=== PATIENT | female | born 1930 | race Caucasian/White ===

== ENCOUNTER → 2016-04-16 | Outpatient (CLI) | payer OTHER, MEDICAID ==
--- NOTE | 2016-04-16 18:34 | DX ---
PA and lateral chest. April 16, 2016. Clinical History: Hemoptysis Comparison Study: January 07, 2016, December 28, 2015. Findings: From prior study, there has been near complete interval resolution of bilateral lower lobe infiltrates, right greater than left, with mild residual atelectasis or parenchymal scarring. Heart s ize is normal. Scattered small calcified nodules are present in the left midlung. No pleural effusion . No masses identified.. Impression: Interval near complete resolution of bilateral lower lobe infiltrates, with mild residual scarring or atelectasis. If hemoptysis persists, CT examination of the chest would be of benefit..
== END ==
LOC: FIMAGING 12:43
PROVIDERS: ATTEND Family Medicine
DX: R04.2 Hemoptysis (principal)

== ENCOUNTER 2016-05-26 09:40 | Inpatient (IN) | payer MEDICAID, OTHER ==
--- NOTE | 2016-05-26 10:23 | EDPHY ---
H & P Stated Complaint: fever 101.5 at home/?aspiration pneumonia in past Time Seen by Provider: 05/26/16 10:23 - Personal History Current Tetanus/Diphtheria Vaccine: Yes Tetanus Vaccine Date: ? - Medical/Surgical History Hx Asthma: No Hx Chronic Respiratory Disease: Yes Hx Diabetes: Yes Hx Cardiac Disease: No Hx Renal Disease: No Hx Cirrhosis: No Hx Alcoholism: No Hx HIV/AIDS: No Hx Splenectomy or Spleen Trauma: No Other PMH: TIA, CVA, TUBE FEEDINGS SWALLOW ISSUES, GLOBUAL TUMOR L inner EAR. IDDM, HOME 02, ASPIRATION PNEUMONIA - Social History Smoking Status: Never smoked Constitutional: Initial Vital Signs Temperature (C) 37.4 C 05/26/16 09:47 Heart Rate 72 05/26/16 09:47 Respiratory Rate 26 H 05/26/16 09:47 Blood Pressure 125/63 H 05/26/16 09:47 O2 Sat (%) 91 L 05/26/16 09:47 O2 Delivery Mode Nasal Cannula O2 (L/minute) 2 Allergies/Adverse Reactions: No Known Allergies Allergy (Verified 05/26/16 09:46) Home Medications: Medication Instructions Recorded FLUoxetine [Prozac 20 MG (*)] 60 mg TUBE DAILY 11/30/11 Insulin Glargine,Hum.rec.anlog 12 unit SQ DAILY@1900 11/30/11 [Lantus] amLODIPine BESYLATE [Norvasc 5 mg 5 mg TUBE BID 11/30/11 (*)] busPIRone [Buspar (*)] 5 mg TUBE BID 11/30/11 metFORMIN HCL [Glucophage 500 mg 500 mg TUBE DAILY 11/30/11 (*)] Albuterol Sulfate [Albuterol 1 - 2 puffs IH Q4H PRN 04/27/14 Inhaler Hfa] Albuterol [Proventil Neb] 3 ml IH TID 04/27/14 Fluticasone Hfa 44 Mcg [Flovent 44 2 puffs IH HS 04/27/14 MCG Hfa MDI (*)] Pantoprazole Sodium [Protonix 40mg 40 mg TUBE BIDMEAL 04/27/14 (*)] Calcium Carbonate [Tums 500MG (*)] 500 mg TUBE HS 07/03/15 INSULIN REGULAR, HUMAN [Novolin R] 2 - 6 unit SQ DAILY PRN 07/03/15 Oxybutynin Chloride [Ditropan] 5 mg TUBE BID 07/03/15 Polyethylene Glycol 3350 [Miralax 17 gm TUBE DAILY 07/03/15 17 gm (*)] Hydrocodone/Acetaminophen [Berry 0.5 each TUBE HS 09/29/15 5/325 (*)] Losartan Potassium [Cozaar 50 mg 50 mg PO BID 09/29/15 (*)] Aspirin [Aspirin 81mg (*)] 81 mg TUBE DAILY #0 tab.chew 10/01/15 Metoclopramide [Reglan 5 mg (*)] 5 mg PO DAILY PRN 12/27/15 Nystatin [Mycostatin Oral Liquid 5 ml PO BID 12/27/15 (*)] guaiFENesin/DEXTROMETHORPHAN 10 ml PO Q4HRS PRN #0 ml 12/31/15 [Robitussin Dm Oral Liquid (*)] Acetaminophen [Tylenol 325mg (*)] 650 mg PO Q4 PRN #0 tab 01/10/16 Ipratropium/Albuterol [Duoneb (*)] 3 ml IH Q6 #0 deyvial 01/10/16 levOFLOXACIN [levAQUIN (*)] 750 mg PO Q2D #0 tab 01/10/16 Medical Decision Making ED Course/Re-evaluation: CHIEF COMPLAINT: Fever HISTORY OF PRESENT ILLNESS: The patient is an 86 y/o female arriving with her son complaining of a fever and green sputum. She has several chronic medical conditions including frequent pneumonia and an unresectable neck tumor and requires 24/7 home care. She was admitted 4 months ago for failure to thrive and pneumonia. Her son brought her to the ED today because she had a reported fever of 99F, green sputum, and was shaking. He reports these symptoms are similar to previous UTIs as well as pneumonia. She denies abdominal pain. History primarily obtained from son. REVIEW OF SYSTEMS: A 10 point review of systems was performed and is negative with the exception of the elements mentioned in the history of present illness. PHYSICAL EXAM: HR, BP, O2 Sat, RR. Temp noted General Appearance: Alert, well hydrated, appropriate, and chronically-ill appearing. Head: Atraumatic without scalp tenderness or obvious injury Eyes: Pupils equal, round, reactive to light and accommodation, EOMI, no trauma , no injection. Ears: Clear bilaterally, no perforation, normal landmarks, hearing assistance device in place. Nose: Atraumatic, no rhinorrhea, clear. Throat: There is no erythema or exudates, no lesions, mucus membranes moist. Neck: Supple, 2+ carotid upstroke, nontender, no lymphadenopathy. Respiratory: No retractions, no distress, no wheezes, and no accessory muscle use. Lungs are clear to auscultation bilaterally. Cardiovascular: Regular rate and rhythm, no murmurs, rubs, or gallops. Bilateral carotid, radial, dorsalis pedis, and posterior tibial pulses intact. Good capillary refill all extremities. Gastrointestinal: Abdomen is soft, nontender, non-distended, no masses, no rebound, no guarding, no peritoneal signs. Large abdomen at baseline with G-tube Musculoskeletal: Normal active ROM of all extremities, atraumatic. Neurological: Alert, appropriate, and interactive per baseline. Neuro exam at baseline. Skin: No rashes, good turgor, no nodules on palpation. 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 Lives at home with son and 20/10 care. Full cor status Prior medical records reviewed including admission 01/07/16 for failure to thrive. DIAGNOSTICS/PROCEDURES/CRITICAL CARE TIME: Study: Chest x-ray Indication: Fever Results: Chest x-ray was obtained. The results of the study are Possible new right lower lobe infiltrate. The study was read by the radiologist, Dr. Hay. I viewed the images myself on the PACS system. DIFFERENTIAL DIAGNOSIS: The differential diagnosis for the patient's fever included but was not limited to pneumonia, urinary tract infection, viral syndrome, meningitis, and sepsis. MEDICAL DECISION MAKING: Chronically ill female with symptoms of infection per son, who is primary caregiver. Plan to investigate likely sources of infection and screen for sepsis. Labs drawn including CBC, CHEM, PTPTT, bilirubin, lactic acid, blood culture. UA and chest x-ray ordered. Urine negative for signs of UTI. Chest x-ray pending. Chest x-ray shows right lower lobe infiltrate. Lactate is pending. 750mg IV Levaquin administered. 1530: Patient's lactate is elevated at 2.5 and WBC is elevated at 13.4. However , she does not meet SIRS criteria as her vitals are within normal ranges. Her first respiratory rate is likely not accurate as she has maintained RR around 18 for the entirety of her visit here. No tachypnea on exam. Plan for admission for pneumonia. She will receive IV fluids at a rate of 125mL/hr. 1533: Spoke with hospitalist service. Dr. Garnett accepts admission. - Data Points Laboratory Results: Laboratory Results 05/26/16 10:20 05/26/16 10:20 05/26/16 05/26/16 05/26/16 13:05 10:45 10:20 WBC RBC Hgb Hct MCV MCH MCHC RDW Plt Count MPV Neut % (Auto) Lymph % (Auto) [place] % (Auto) Eos % (Auto) Baso % (Auto) Nucleat RBC Rel Count Absolute Neuts (auto) Absolute Lymphs (auto) Absolute Monos (auto) Absolute Eos (auto) Absolute Basos (auto) Absolute Nucleated RBC Immature Gran % Immature Gran # PT INR APTT VBG Lactic Acid 2.5 mmol/L H mmol/L (0.7-2.1) Sodium 137 mEq/L mEq/L (134-144) Potassium 4.9 mEq/L mEq/L (3.5-5.2) Chloride 103 mEq/L mEq/L (97-110) Carbon Dioxide 24 mEq/l mEq/l (22-31) Anion Gap 10 mEq/L mEq/L (8-16) BUN 26 mg/dL H mg/dL (7-23) Creatinine 0.6 mg/dL mg/dL (0.6-1.0) Estimated GFR > 60 Glucose 178 mg/dL H mg/dL (70-100) Calcium 9.6 mg/dL mg/dL (8.5-10.4) Total Bilirubin 0.6 mg/dL mg/dL (0.1-1.4) Urine Color YELLOW Urine Appearance CLEAR Urine pH 7.0 (5.0-7.5) Ur Specific [place] 1.015 (1.002-1.030) Urine Protein NEGATIVE (NEGATIVE) Urine Ketones NEGATIVE (NEGATIVE) Urine Blood NEGATIVE (NEGATIVE) Urine Nitrate NEGATIVE (NEGATIVE) Urine Bilirubin NEGATIVE (NEGATIVE) Urine Urobilinogen NEGATIVE EU EU (0.2-1.0) Ur Leukocyte Esterase NEGATIVE (NEGATIVE) Ur Culture Indicated? NOT INDICATED (NI) Urine Glucose NEGATIVE (NEGATIVE) 05/26/16 05/26/16 10:20 10:20 WBC 13.40 10^3/uL H 10^3/uL (3.80-9.50) RBC 4.40 10^6/uL 10^6/uL (4.18-5.33) Hgb 12.7 g/dL g/dL (12.6-16.3) Hct 39.7 % % (38.0-47.0) MCV 90.2 fL fL (81.5-99.8) MCH 28.9 pg pg (27.9-34.1) MCHC 32.0 g/dL L g/dL (32.4-36.7) RDW 16.8 % H % (11.5-15.2) Plt Count 224 10^3/uL 10^3/uL (150-400) MPV 12.0 fL H fL (8.7-11.7) Neut % (Auto) 91.1 % H % (39.3-74.2) Lymph % (Auto) 6.0 % L % (15.0-45.0) [place] % (Auto) 2.2 % L % (4.5-13.0) Eos % (Auto) 0.0 % L % (0.6-7.6) Baso % (Auto) 0.1 % L % (0.3-1.7) Nucleat RBC Rel Count 0.0 % % (0.0-0.2) Absolute Neuts (auto) 12.22 10^3/uL H 10^3/uL (1.70-6.50) Absolute Lymphs (auto) 0.80 10^3/uL L 10^3/uL (1.00-3.00) Absolute Monos (auto) 0.29 10^3/uL L 10^3/uL (0.30-0.80) Absolute Eos (auto) 0.00 10^3/uL L 10^3/uL (0.03-0.40) Absolute Basos (auto) 0.01 10^3/uL L 10^3/uL (0.02-0.10) Absolute Nucleated RBC 0.00 10^3/uL 10^3/uL (0-0.01) Immature Gran % 0.6 % % (0.0-1.1) Immature Gran # 0.08 10^3/uL 10^3/uL (0.00-0.10) PT 13.5 SEC SEC (12.0-15.0) INR 1.04 (0.83-1.16) APTT 31.6 SEC SEC (23.0-38.0) VBG Lactic Acid Sodium Potassium Chloride Carbon Dioxide Anion Gap BUN Creatinine Estimated GFR Glucose Calcium Total Bilirubin Urine Color Urine Appearance Urine pH Ur Specific [place] Urine Protein Urine Ketones Urine Blood Urine Nitrate Urine Bilirubin Urine Urobilinogen Ur Leukocyte Esterase Ur Culture Indicated? Urine Glucose Departure - Departure Disposition: [facility] In[facility] Acute Clinical Impression: Pneumonia Qualifiers: Pneumonia type: due to unspecified organism Laterality: right Lung location: lower lobe of lung Qualified Code(s): J18.1 - Lobar pneumonia, unspecified organism Condition: Fair Referrals: Ashley Smith MD [Primary Care Provider] - As per Instructions Report Scribed for: Robbin New Report Scribed by: Alla Cunha Date of Report: 05/26/16 Time of Report: 10:35
[2016-05-26 11:07] LABS: COLOR YELLOW; LEUKOCYTE ESTERASE,URINE NEGATIVE (NEGATIVE); NITRITE,URINE NEGATIVE (NEGATIVE)
[2016-05-26 11:23] LABS: % IMMATURE GRANULYOCYTES 0.6 % (0.0-1.1); ABSOLUTE IMMATURE GRANULOCYTES 0.08 10^3/uL (0.00-0.10); ADD DIFF? NO; ADD MORPH? NO; ADD SCAN? NO; ATYPICAL LYMPHOCYTE FLAG 0 (0-99); FRAGMENT RBC FLAG 0 (0-99); HEMATOCRIT 39.7 % (38.0-47.0); HEMOGLOBIN 12.7 g/dL (12.6-16.3); LEFT SHIFT FLG 0 (0-99); LIPEMIA HEMOLYSIS FLAG 80 (0-99); MEAN CELL HEMOGLOBIN 28.9 pg (27.9-34.1); MEAN CELL VOLUME 90.2 fL (81.5-99.8); PLATELET CLUMPS FLAG 0 (0-99); PLATELET COUNT 224 10^3/uL (150-400); RED CELL DISTRIBUTION WIDTH 16.8 % (11.5-15.2)
[2016-05-26 11:28] LABS: ANION GAP 10 mEq/L (8-16); BILIRUBIN,TOTAL 0.6 mg/dL (0.1-1.4); CALCIUM 9.6 mg/dL (8.5-10.4); CARBON DIOXIDE 24 mEq/l (22-31); CHLORIDE 103 mEq/L (97-110); CREATININE 0.6 mg/dL (0.6-1.0); GLOMERULAR FILTRATION RATE > 60; GLUCOSE 178 mg/dL (70-100); POTASSIUM 4.9 mEq/L (3.5-5.2); SODIUM 137 mEq/L (134-144)
[2016-05-26 11:35] LABS: INR 1.04 (0.83-1.16); PROTIME(PATIENT) 13.5 SEC (12.0-15.0)
[2016-05-26 11:36] LABS: APTT 31.6 SEC (23.0-38.0)
[2016-05-26] MEDS ORDERED: NS 1,000 ML IV SCH (13:45)
[2016-05-26 14:11] LABS: LACGHOST ORDER
[2016-05-26] MEDS ORDERED: ONDANSETRON 4 MG/2 ML VIAL IVP PRN (15:47)
[2016-05-26] MEDS ORDERED: ALBUTEROL INH PREPACK MDI TAKEHOME PRN (15:48)
[2016-05-26] MEDS ORDERED: METOCLOPRAMIDE 5 MG TAB TUBE PRN (15:48)
[2016-05-26] MEDS ORDERED: GUAIFENESIN/DM 10 ML UDCUP PO PRN (15:48)
[2016-05-26] MEDS ORDERED: ACETAMINOPHEN 650 MG/20.3 ML UDCUP TUBE PRN (15:48)
[2016-05-26] MEDS ORDERED: D50W 25 GM/50 ML SYR IVP PRN (16:01)
[2016-05-26] MEDS ORDERED: ALBUTEROL 60 PUFFS/8 GM MDI IH PRN (16:18)
--- NOTE | 2016-05-26 16:25 | GHP ---
DATE OF ADMISSION: 05/26/2016 CHIEF COMPLAINT: Fever. HISTORY OF PRESENT ILLNESS: This is an 86-year-old female who is well known to our service with a h istory of multiple hospitalizations for recurrent aspiration pneumonia in the setting of a paragangl ioma tumor in the neck who was brought to the emergency department by her son after she was noted to have a temperature of 101 earlier today. The patient's son tells me that she has had increased con gestion and cough and believes that she has been swallowing her secretions instead of coughing them up. The patient has been tolerating her tube feeds. She denies any urinary complaints. She denies any nausea vomiting, or diarrhea. PAST MEDICAL HISTORY: 1. 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 2. Long-standing dysphagia, status post PEG tube placement. 3. Recurrent hospitalizations for aspiration pneumonia, last of which was in December 2015. 4. Chronic respiratory failure. 5. Type 2 diabetes mellitus. 6. History of TIA and stroke. PAST SURGICAL HISTORY: PEG tube placement. HOME MEDICATIONS: Reviewed. Refer to [facility] for the full list. ALLERGIES: No known drug allergies. SOCIAL HISTORY: The patient lives with her son as well as with caregivers at home. There is no his tory of alcohol, tobacco, or illicit drug use. FAMILY HISTORY: Reviewed and noncontributory. REVIEW OF SYSTEMS: A comprehensive 10-point review of systems was done and is negative except for a s mentioned in the HPI. PHYSICAL EXAM: VITAL SIGNS: Blood pressure 143/69, pulse of 50, respiratory rate 18, O2 saturation 99% on 3 L, temperature afebrile. GENERAL: No acute distress. HEAD: Normocephalic, atraumatic. EYES: PERRLA. Sclerae anicteric. MOUTH: Dry oral mucosa. NECK: Supple. No lymphadenopathy. CARDIOVASCULAR: S1, S2. No JVD. No lower extremity edema. PULMONARY: Lungs are clear. No wheez es, rales, or rhonchi. No dullness to percussion. Slight increased respiratory effort. ABDOMEN: Soft, nontender, nondistended. No guarding or rebound tenderness. Normoactive bowel sounds. G-tub e is in place. EXTREMITIES: No clubbing or cyanosis. NEURO: Cranial nerves 2-12 grossly intact. No focal motor or sensory deficits. SKIN: Clear. No rashes. DIAGNOSTICS: Chest x-ray, which I visualized and personally interpreted, shows right lower lobe inf iltrate. WBC is 13.4, hemoglobin 12.7, hematocrit 39.7, platelets 224. Venous lactic acid 2.3, sod ium 137, potassium 4.9, chloride 103, BUN 26, creatinine 0.6, glucose 178. ASSESSMENT/PLAN: 1. This is an 86-year-old female with history of recurrent aspiration pneumonia in the setting of d ysphagia with a paraganglioma tumor of the neck presenting with: Fever. Differential diagnosis inc ludes recurrent aspiration versus viral illness. Plan: Blood cultures have been sent in the emerge ncy department. She has received 1 dose of levofloxacin. For now, levofloxacin will be continued. If she continues to spike fevers, we will consider adding anaerobic coverage in the morning. Appar ently, the patient has listed Augmentin as an allergy since this medication has not worked for her i n the past, but we will consider adding Augmentin if she does develop fever. Her last sputum grew P seudomonas that was sensitive to Levaquin. We will also send influenza by PCR. 2. Prerenal azotemia with BUN of 26 and creatinine 0.6, likely representing dehydration. Plan: St art maintenance IV fluids. 3. History of dysphagia. Plan: Continue tube feeds and keep n.p.o. status. The patient was seen by Palliative Care during her last hospital stay, and the patient continues to want aggressive medical care and full code status. /[id number]/MODL
[2016-05-26] MEDS: ALBUTEROL 3 ML DEYVIAL IH SCH ×2 (17:04→21:22)
[2016-05-26] MEDS ORDERED: INSULIN GLARGINE HUM REC ANLOG 12 UNIT SQ SCH (19:00)
[2016-05-26] MEDS: INSULIN REGULAR HUMAN 100 UNIT/ML SC SCH ×2 (19:18→22:55)
[2016-05-26] MEDS: FLUTICASONE HFA 44 MCG MDI IH SCH (21:22)
[2016-05-26] MEDS: OXYBUTYNIN CHLORIDE 5 MG TAB TUBE SCH (21:49)
[2016-05-26] MEDS: INSULIN GLARGINE 100 UNITS/ML SYRINGE SC SCH (21:49)
[2016-05-26] MEDS: HYDROCODONE/APAP 5/325 TAB TUBE SCH (21:49)
[2016-05-26] MEDS: NYSTATIN SUSP 500000 UNIT/5 ML UDCUP PO SCH (21:49)
[2016-05-26] MEDS: amLODIPine BESYLATE 5 MG TAB TUBE SCH (21:51)
[2016-05-26] MEDS: CALCIUM CARBONATE 500 MG CHEWABLE TAB PO SCH (21:51)
[2016-05-26] MEDS: LOSARTAN POTASSIUM 50 MG TAB TUBE SCH (21:51)
[2016-05-26] MEDS: busPIRone 5 MG TAB TUBE SCH (21:51)
[2016-05-27 06:25] LABS: % IMMATURE GRANULYOCYTES 0.2 % (0.0-1.1); ABSOLUTE IMMATURE GRANULOCYTES 0.01 10^3/uL (0.00-0.10); ADD DIFF? NO; ADD MORPH? NO; ADD SCAN? NO; ATYPICAL LYMPHOCYTE FLAG 10 (0-99); FRAGMENT RBC FLAG 0 (0-99); HEMATOCRIT 34.3 % (38.0-47.0); HEMOGLOBIN 10.7 g/dL (12.6-16.3); LEFT SHIFT FLG 0 (0-99); LIPEMIA HEMOLYSIS FLAG 80 (0-99); MEAN CELL HEMOGLOBIN 28.5 pg (27.9-34.1); MEAN CELL HEMOGLOBIN CONCENTR. 31.2 g/dL (32.4-36.7); MEAN CELL VOLUME 91.5 fL (81.5-99.8); MEAN PLATELET VOLUME 12.1 fL (8.7-11.7); PLATELET CLUMPS FLAG 0 (0-99); PLATELET COUNT 190 10^3/uL (150-400); RED BLOOD CELL COUNT 3.75 10^6/uL (4.18-5.33); RED CELL DISTRIBUTION WIDTH 16.7 % (11.5-15.2)
[2016-05-27 06:43] LABS: ANION GAP 5 mEq/L (8-16); CALCIUM 8.9 mg/dL (8.5-10.4); CARBON DIOXIDE 26 mEq/l (22-31); CHLORIDE 105 mEq/L (97-110); CREATININE 0.7 mg/dL (0.6-1.0); GLOMERULAR FILTRATION RATE > 60; GLUCOSE 83 mg/dL (70-100); POTASSIUM 4.2 mEq/L (3.5-5.2); SODIUM 136 mEq/L (134-144)
[2016-05-27] MEDS: INSULIN REGULAR HUMAN 100 UNIT/ML SC SCH ×4 (08:05→20:08)
[2016-05-27] MEDS: amLODIPine BESYLATE 5 MG TAB TUBE SCH ×3 (08:49→20:58)
[2016-05-27] MEDS: busPIRone 5 MG TAB TUBE SCH ×3 (08:49→20:58)
[2016-05-27] MEDS: FLUoxetine 20 MG CAP TUBE SCH (08:49)
[2016-05-27] MEDS: ENOXAPARIN 40 MG/0.4 ML SYR SC SCH (08:49)
[2016-05-27] MEDS: POLYETHYLENE GLYCOL 3350 17 GM PKT TUBE SCH (08:49)
[2016-05-27] MEDS: ASPIRIN 81 MG CHEWABLE TAB TUBE SCH (08:50)
[2016-05-27] MEDS: LOSARTAN POTASSIUM 50 MG TAB TUBE SCH ×3 (09:01→20:58)
[2016-05-27] MEDS: OXYBUTYNIN CHLORIDE 5 MG TAB TUBE SCH ×3 (09:02→20:58)
[2016-05-27] MEDS: NYSTATIN SUSP 500000 UNIT/5 ML UDCUP PO SCH ×2 (09:02→20:17)
[2016-05-27] MEDS: metFORMIN HCL 500 MG TAB TUBE SCH (09:02)
[2016-05-27] MEDS: ALBUTEROL 3 ML DEYVIAL IH SCH ×3 (09:45→21:56)
--- NOTE | 2016-05-27 09:54 | HOSPPROG ---
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 Briefly of borderline low blood pressure last evening Exam: alert oriented skin warm dry color ok resps not labored lungs there are a few rales at the right lung base posteriorly heart regular abd soft nondistended nontender, bowel sounds present limbs warm, no edema iv site ok Microbiology: Blood cultures are negative so far Objective: Vital Signs Temp Pulse Resp BP Pulse Ox 37.1 C 48 L 18 152/64 H 97 05/27/16 00:00 05/27/16 09:47 05/27/16 09:47 05/27/16 08:00 05/27/16 09:47 Laboratory Results 05/27/16 05:10 05/27/16 05:10 05/26/16 05/27/16 05/28/16 06:59 06:59 06:59 Intake Total 945 Balance 945 PT 13.5 SEC (12.0-15.0) 05/26/16 10:20 INR 1.04 (0.83-1.16) 05/26/16 10:20 ICD10 Worksheet Patient Problems: Problems Problem Status Onset Pneumonia Acute Aspiration pneumonia Acute Fever Acute Generalized weakness Acute Hx: recurrent pneumonia Acute Hypoxia Acute Palliative care encounter Acute Periorbital hematoma Acute Pneumonia Acute
[2016-05-27] MEDS: FERROUS SULFATE 325 MG TAB PO SCH (15:38)
[2016-05-27] MEDS: INSULIN GLARGINE 100 UNITS/ML SYRINGE SC SCH (20:22)
[2016-05-27] MEDS: HYDROCODONE/APAP 5/325 TAB TUBE SCH (20:31)
[2016-05-27] MEDS: CALCIUM CARBONATE 500 MG CHEWABLE TAB PO SCH (20:31)
[2016-05-27] MEDS: FLUTICASONE HFA 44 MCG MDI IH SCH (21:57)
[2016-05-28] MEDS: ALBUTEROL 3 ML DEYVIAL IH SCH ×3 (08:25→21:40)
[2016-05-28] MEDS: metFORMIN HCL 500 MG TAB TUBE SCH (08:29)
[2016-05-28] MEDS: OXYBUTYNIN CHLORIDE 5 MG TAB TUBE SCH ×2 (08:29→20:31)
[2016-05-28] MEDS: amLODIPine BESYLATE 5 MG TAB TUBE SCH ×2 (08:30→20:32)
[2016-05-28] MEDS: LOSARTAN POTASSIUM 50 MG TAB TUBE SCH ×2 (08:30→20:38)
[2016-05-28] MEDS: FLUoxetine 20 MG CAP TUBE SCH (08:30)
[2016-05-28] MEDS: busPIRone 5 MG TAB TUBE SCH ×2 (08:30→20:31)
[2016-05-28] MEDS: ASPIRIN 81 MG CHEWABLE TAB TUBE SCH (08:30)
[2016-05-28] MEDS: NYSTATIN SUSP 500000 UNIT/5 ML UDCUP PO SCH ×2 (08:30→20:30)
[2016-05-28] MEDS: POLYETHYLENE GLYCOL 3350 17 GM PKT TUBE SCH (08:31)
[2016-05-28] MEDS: ENOXAPARIN 40 MG/0.4 ML SYR SC SCH (08:31)
[2016-05-28] MEDS: INSULIN REGULAR HUMAN 100 UNIT/ML SC SCH ×4 (08:36→21:39)
[2016-05-28] MEDS: FERROUS SULFATE 325 MG TAB PO SCH (15:45)
--- NOTE | 2016-05-28 16:11 | HOSPPROG ---
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 Lives in house son, with stairs, he works a full day. Will see how she improves overnight. She may be more apporpriate for supervised setting either temporary or full time babysitter. SUBJECTIVE: Only remaining acute symptom is weakness and gait instability Her desire is to return home OBJECTIVE Vitals reviewed: Overall stable without fever; there was. Briefly of borderline low blood pressure last evening Exam: alert oriented skin warm dry color ok resps not labored lungs there are a few rales at the right lung base posteriorly heart regular abd soft nondistended nontender, bowel sounds present limbs warm, no edema iv site ok Microbiology: Blood cultures are negative so far Objective: Vital Signs Temp Pulse Resp BP Pulse Ox 36.9 C 53 L 14 137/67 H 98 05/28/16 07:50 05/28/16 15:08 05/28/16 15:08 05/28/16 07:50 05/28/16 15:08 Laboratory Results 05/27/16 05:10 05/27/16 05:10 05/27/16 05/28/16 05/29/16 06:59 06:59 06:59 Intake Total 945 1914 Balance 945 1914 PT 13.5 SEC (12.0-15.0) 05/26/16 10:20 INR 1.04 (0.83-1.16) 05/26/16 10:20 ICD10 Worksheet Patient Problems: Problems Problem Status Onset Pneumonia Acute Aspiration pneumonia Acute Fever Acute Generalized weakness Acute Hx: recurrent pneumonia Acute Hypoxia Acute Palliative care encounter Acute Periorbital hematoma Acute Pneumonia Acute
[2016-05-28] MEDS: HYDROCODONE/APAP 5/325 TAB TUBE SCH (20:31)
[2016-05-28] MEDS: CALCIUM CARBONATE 500 MG CHEWABLE TAB PO SCH (20:38)
[2016-05-28] MEDS: INSULIN GLARGINE 100 UNITS/ML SYRINGE SC SCH (20:55)
[2016-05-28] MEDS: FLUTICASONE HFA 44 MCG MDI IH SCH (21:40)
[2016-05-29] MEDS: INSULIN REGULAR HUMAN 100 UNIT/ML SC SCH ×2 (07:41→11:49)
[2016-05-29] MEDS: OXYBUTYNIN CHLORIDE 5 MG TAB TUBE SCH (08:04)
[2016-05-29] MEDS: LOSARTAN POTASSIUM 50 MG TAB TUBE SCH (08:04)
[2016-05-29 08:05] VITALS: BP 131/81; TEMP 97.9
[2016-05-29] MEDS: FLUoxetine 20 MG CAP TUBE SCH (08:05)
[2016-05-29] MEDS: NYSTATIN SUSP 500000 UNIT/5 ML UDCUP PO SCH (08:05)
[2016-05-29] MEDS: ASPIRIN 81 MG CHEWABLE TAB TUBE SCH (08:05)
[2016-05-29] MEDS: amLODIPine BESYLATE 5 MG TAB TUBE SCH (08:05)
[2016-05-29] MEDS: metFORMIN HCL 500 MG TAB TUBE SCH (08:05)
[2016-05-29] MEDS: busPIRone 5 MG TAB TUBE SCH (08:05)
[2016-05-29] MEDS: POLYETHYLENE GLYCOL 3350 17 GM PKT TUBE SCH (08:05)
[2016-05-29] MEDS: ENOXAPARIN 40 MG/0.4 ML SYR SC SCH (08:05)
[2016-05-29] MEDS: ALBUTEROL 3 ML DEYVIAL IH SCH ×2 (08:34→15:22)
[2016-05-29 08:44] VITALS: PULSE 52
--- NOTE | 2016-05-29 14:31 | PDIAF ---
- Diagnosis Diagnosis: recurrent aspiration pneumonia Code Status: Full Code - Medication Management Discharge Medications: Medications to Continue on Transfer FLUoxetine [Prozac 20 MG (*)] 60 mg TUBE DAILY 11/30/11 [Last Taken 05/26/16] Insulin Glargine,Hum.rec.anlog [Lantus] 12 unit SQ DAILY@1900 11/30/11 [Last Taken 05/25/16] amLODIPine BESYLATE [Norvasc 5 mg (*)] 5 mg TUBE BID 11/30/11 [Last Taken ] busPIRone [Buspar (*)] 5 mg TUBE BID 11/30/11 [Last Taken 05/26/16] metFORMIN HCL [Glucophage 500 mg (*)] 500 mg TUBE DAILY 11/30/11 [Last Taken ] Albuterol Sulfate [Albuterol Inhaler Hfa] 1 - 2 puffs IH Q4H PRN 04/27/14 [Last Taken 05/25/16] Albuterol [Proventil Neb] 3 ml IH TID 04/27/14 [Last Taken 05/25/16] Fluticasone Hfa 44 Mcg [Flovent 44 MCG Hfa MDI (*)] 2 puffs IH HS 04/27/14 [ Last Taken 05/25/16] Pantoprazole Sodium [Protonix 40mg (*)] 40 mg TUBE BIDMEAL 04/27/14 [Last Taken 05/26/16] Calcium Carbonate [Tums 500MG (*)] 500 mg TUBE HS 07/03/15 [Last Taken 05/25/16] INSULIN REGULAR, HUMAN [Novolin R] 2 - 6 unit SQ DAILY PRN 07/03/15 [Last Taken 12/27/15 06:30] Oxybutynin Chloride [Ditropan] 5 mg TUBE BID 07/03/15 [Last Taken 05/26/16] Polyethylene Glycol 3350 [Miralax 17 gm (*)] 17 gm TUBE DAILY 07/03/15 [Last Taken 05/26/16] Hydrocodone/Acetaminophen [[place] 5/325 (*)] 0.5 each TUBE HS 09/29/15 [Last Taken 05/25/16] Losartan Potassium [Cozaar 50 mg (*)] 50 mg TUBE BID 09/29/15 [Last Taken ] Aspirin [Aspirin 81mg (*)] 81 mg TUBE DAILY #0 tab.chew 10/01/15 [Last Taken ] Metoclopramide [Reglan 5 mg (*)] 5 mg TUBE DAILY PRN 12/27/15 [Last Taken ] Nystatin [Mycostatin Oral Liquid (*)] 5 ml PO BID 12/27/15 [Last Taken 05/26/16] guaiFENesin/DEXTROMETHORPHAN [Robitussin Dm Oral Liquid (*)] 10 ml PO Q4HRS PRN #0 ml 12/31/15 [Last Taken 01/07/16 11:00] Acetaminophen [Tylenol 325mg (*)] 650 mg TUBE Q4 PRN 05/26/16 [Last Taken Unknown] Ferrous Sulfate [Ferrous Sulf 325 MG (*)] 325 mg TUBE DAILY@15 05/26/16 [Last Taken 05/25/16] levOFLOXACIN [levAQUIN (*)] 750 mg TUBE Q2D@1000 #2 tab 05/29/16 [Last Taken Unknown] Discharge Medications: Refer to the Discharge Home Medication list for PRN reason. - Orders Services needed: Home Care, Registered Nurse Home Care Face to Face: I certify that this patient was under my care and that I had the required [id number] encounter meeting the encounter requirements on the discharge day. My findings support the fact that the patient is homebound as defined in CMS Chapter 7 Medicare Benefits Manual 30.1.1, The condition of the patient is such that there exists a normal inability to leave home and consequently, leaving home would require a considerable and taxing effort. Tube feeding: as previous Additional: The patient had a palliative care consultation in hospital, and did not at this time change her FULL COR status, but is still considering this. It is recommended to her she have further discussion with Dr Smith. - Follow Up Care Current Providers and Referrals: Ashley Smith MD [Primary Care Provider] - As per Instructions
--- NOTE | 2016-05-29 14:32 | PDPCPN ---
Palliative Care Progress Note Assessment/Plan: Referring provider: Per son request Reason for consult: Complex medical decision making Symptom control HPI: Becky Seo is a 86 yo female with PMH paraganglioma of the neck s/p permanent PEG tube placement, DM, recurrent aspiration PNA and chronic respiratory failure admitted to the hospital with increasing weakness and SOB. Dx with as PNA as well as pneumonitis. Patient is known to us from previous admission with goals of continue life prolonging measures. Son requested another meeting to discuss goals and code status. Met with olya Branch at the bedside with Becky this afternoon. Jose Carlos specifically wanted to discuss code status in relation to Becky's health status and current Full code wishes. We spoke in detail about what CPR is and the likelihood of success with her underlying medical conditions as well as age. She states she will continue to think about this and it was a lot of information for her. For now she remains full code. MOST form given as well and explained to fill out with her PCP when she feels ready. Assessment: Physical: - Dyspnea: on occasion - oxygen as needed - nebs Emotional/psychological: doing ok. Some short term memory loss Advanced Care Planning: Is patient decisional?: Yes Code Status: Full MD POA: olya Branch is MDPOA Plan: Becky is thinking about her code status. She requested printed information to review which was email to olya per their request. Please call us for further needs. 05/29/16 14:32 Subjective: I'm doing ok today Objective: Social History: Lives with olya Branch. Has caregiver at home as well. Medication list reviewed ROS: General: fatigue, weakness ENT: negative Resp: dyspnea GI: negative : negative MS: negative Skin: negative Neuro: negative Psych: some short term memory loss Functional assessment: PPS: 60% Functional status: needs some assistance with ADLs Vital Signs Temp Pulse Resp BP Pulse Ox 36.6 C 52 L 14 131/81 H 92 05/29/16 08:00 05/29/16 08:36 05/29/16 08:36 05/29/16 08:00 05/29/16 08:36 Laboratory Results 05/27/16 05:10 05/27/16 05:10 05/28/16 05/29/16 05/30/16 05:59 05:59 05:59 Intake Total 1913 550 Balance 1913 550 PT 13.5 SEC (12.0-15.0) 05/26/16 10:20 INR 1.04 (0.83-1.16) 05/26/16 10:20 Physical Exam - Physical Exam General Appearance: alert, no apparent distress Respiratory: No respiratory distress, No accessory muscle use Skin: normal color, warm/dry Extremities: No pedal edema Neuro/Psych: alert, oriented x 3 ICD10 Worksheet Patient Problems: Problems Problem Status Onset Pneumonia Acute Aspiration pneumonia Acute Fever Acute Generalized weakness Acute Hx: recurrent pneumonia Acute Hypoxia Acute Palliative care encounter Acute Periorbital hematoma Acute Pneumonia Acute
[2016-05-29 16:31] VITALS: RESP 12; O2SAT 97
--- NOTE | 2016-05-29 16:35 | PDDCSUM ---
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 We have treated her here for multiple previous episodes of aspiration pneumonitis. She did not have really acute respiratory failure are hypoxemia be on her usual at this time. However her syndrome was most consistent with recurrent aspiration we found no other cause for her fever. She was treated with antibiotics and responded quite well to this. At this point she is back to her baseline level of dyspnea and strength. She is tolerating her tube feeds well. Her fevers have resolved and she is really asymptomatic other than her chronic issues. She feels comfortable going home and appears stable for discharge home. Her son visited frequently with her here and we had conversations about end of life care issues. The patient so far has always requested a full cor order and had no specific limitations on her care that she wanted. Her son at this time raise the possibility of whether no cor or some other limitations of care might be appropriate and they both agreed to palliative care evaluation. They met with the palliative care consultation team. After this evaluation I met with them again and asked if they had any further questions and there were some which I answered for them. At this point she does not have a desire to have this changed her no cor order or make any other care plan changes. However she is going to consider these issues further at home in the near future and decide whether she should make any changes. I recommended that she have further discussion about these issues with Dr. Brock Smith her primary care physician. MEDICATION CHANGES: -Addition of Levaquin 750 mg Q 48 hours via her feeding tube FOLLOW-UP PLAN: With Dr. Brock Smith next week Greater than 35 minutes bedside and care coordination time today
== END 2016-05-29 16:00 | disposition home health service (06) | DRG 178 ==
LOC: F3N 15:00 → F3E 05-27 17:51
PROVIDERS: ADMIT Internal Medicine; ATTEND Internal Medicine
DX: J69.0 Pneumonitis due to inhalation of food and vomit (principal); J96.11 Chronic respiratory failure with hypoxia; R13.10 Dysphagia, unspecified; D44.7 Neoplasm of uncertain behavior of aortic body and other paraganglia; E11.9 Type 2 diabetes mellitus without complications; D64.9 Anemia, unspecified; Z93.1 Gastrostomy status; Z99.81 Dependence on supplemental oxygen; Z86.73 Personal history of transient ischemic attack (TIA), and cerebral infarction without residual deficits
CPT/HCPCS: 96365; 97161-GP; 97165-GO; 97530-GP; 97535-GO; G8978-GP-CI; G8979-GP-CI; G8987-GO-CJ; G8988-GO-CI; J1650; J1815; J1956

== ENCOUNTER 2016-06-27 09:17 | Emergency (ER) | payer OTHER ==
[2016-06-27] MEDS ORDERED: SKIN ADHESIVE (DERMABOND) 1 EACH TP ONE (09:33)
--- NOTE | 2016-06-27 09:37 | EDPHY ---
H & P Stated Complaint: pt has balance issues fell and hit forehead/no loc Time Seen by Provider: 06/27/16 09:27 HPI/ROS: CHIEF COMPLAINT: Head injury HISTORY OF PRESENT ILLNESS: 86-year-old female no anticoagulant use, baseline issue of balance issues , lives with her son, arrives via private vehicle, not a trauma activation, after she sustained a mechanical fall in her home. This was not immediately witnessed by the son who had stepped into another room. Per patient there was no prodrome of pain, no prodrome of headache, no chest pain, no palpitations, no visual disturbance, no nausea or vomiting PRIMARY CARE PROVIDER: Ashley [facility] REVIEW OF SYSTEMS: A ten point review of systems was performed and is negative with the exception of the items mentioned in the HPI PAST MEDICAL/SURGICAL HISTORY: Baseline balance issues secondary to history of TIA, paraganglioma, chronic dysphagia, no anticoagulant use, no relevant medical /surgical history SOCIAL HISTORY: denies alcohol use at time of incident. Lives with son. PHYSICAL EXAM 1) GENERAL: Well-developed, well-nourished, alert and oriented. Appears to be in no acute distress. Answering questions appropriately. 2) HEAD: Normocephalic, left frontal 3 cm well-demarcated laceration 3) HEENT: Pupils equal, round, reactive to light bilaterally. Negative Horners. Nasopharynx, oropharynx, clear. No deformity or angulation of nose. No septal hematoma. No rhinorrhea. No oral trauma. Ears bilaterally with normal tympanic membranes. No hemotympanum. No fluid or blood in the external auditory canal. No raccoon eyes. No Pickett sign. Teeth are normally aligned with no gross malocclusion, TMJ bilaterally nontender, facial bones nontender including the zygomatic arch, maxilla mandible. 4) NECK: No cervical collar is on. Posterior cervical spine is nontender, no stepoff, no effusion. Full range of motion which does not elicit any midline cervical spine pain, no posterior midline tenderness, no step-off. 5) LUNGS: Clear to auscultation bilaterally, no wheezes, no rhonchi, no retractions. No obvious signs of trauma. No chest wall pain. No flaring, no grunting. Moving symmetrically. No crepitus. 6) HEART: Regular rate and rhythm, 7) ABDOMEN: No guarding, no rebound, no focal tenderness, no peritoneal signs, no signs of trauma, no ecchymosis 8) MUSCULOSKELETAL: Moving all extremities, no focal areas of tenderness, no obvious trauma. 9) BACK: No midline vertebral tenderness, no fluctuance, no step-off, no obvious trauma, no visual or palpable abnormality. 10) SKIN: forehead laceration DIFFERENTIAL DIAGNOSIS: [ Not necessarily in any particular order, my differential diagnosis includes, but is not limited to, concussion, skull fracture, intraparenchymal contusion, subarachnoid, subdural and epidural hematoma. The patient understands that this diagnosis is provisional and can never be 100% accurate. - Personal History Current Tetanus/Diphtheria Vaccine: Yes Tetanus Vaccine Date: ? - Medical/Surgical History Hx Asthma: No Hx Chronic Respiratory Disease: Yes Hx Diabetes: Yes Hx Cardiac Disease: No Hx Renal Disease: No Hx Cirrhosis: No Hx Alcoholism: No Hx HIV/AIDS: No Hx Splenectomy or Spleen Trauma: No Other PMH: TIA, TUBE FEEDINGS- SWALLOW ISSUES, GLOBUAL TUMOR L inner EAR. IDDM, HOME 02, ASPIRATION PNEUMONIA - Social History Smoking Status: Never smoked Constitutional: Initial Vital Signs Temperature (C) 36.4 C 06/27/16 09:22 Heart Rate 54 L 06/27/16 09:22 Respiratory Rate 22 H 06/27/16 09:22 Blood Pressure 135/64 H 06/27/16 09:22 O2 Sat (%) 92 06/27/16 09:22 O2 Delivery Mode Room Air Allergies/Adverse Reactions: amoxicillin trihydrate [From Augmentin] Allergy (Mild, Verified 06/27/16 09:18) Other-Enter Comments potassium clavulanate [From Augmentin] Allergy (Mild, Verified 06/27/16 09:18) Other-Enter Comments Home Medications: Medication Instructions Recorded FLUoxetine [Prozac 20 MG (*)] 60 mg TUBE DAILY 11/30/11 Insulin Glargine,Hum.rec.anlog 12 unit SQ DAILY@1900 11/30/11 [Lantus] amLODIPine BESYLATE [Norvasc 5 mg 5 mg TUBE BID 11/30/11 (*)] busPIRone [Buspar (*)] 5 mg TUBE BID 11/30/11 metFORMIN HCL [Glucophage 500 mg 500 mg TUBE DAILY 11/30/11 (*)] Albuterol Sulfate [Albuterol 1 - 2 puffs IH Q4H PRN 04/27/14 Inhaler Hfa] Albuterol [Proventil Neb] 3 ml IH TID 04/27/14 Fluticasone Hfa 44 Mcg [Flovent 44 2 puffs IH HS 04/27/14 MCG Hfa MDI (*)] Pantoprazole Sodium [Protonix 40mg 40 mg TUBE BIDMEAL 04/27/14 (*)] Calcium Carbonate [Tums 500MG (*)] 500 mg TUBE HS 07/03/15 INSULIN REGULAR, HUMAN [Novolin R] 2 - 6 unit SQ DAILY PRN 07/03/15 Oxybutynin Chloride [Ditropan] 5 mg TUBE BID 07/03/15 Polyethylene Glycol 3350 [Miralax 17 gm TUBE DAILY 07/03/15 17 gm (*)] Hydrocodone/Acetaminophen [[place] 0.5 each TUBE HS 09/29/15 5/325 (*)] Losartan Potassium [Cozaar 50 mg 50 mg TUBE BID 09/29/15 (*)] Aspirin [Aspirin 81mg (*)] 81 mg TUBE DAILY #0 tab.chew 10/01/15 Metoclopramide [Reglan 5 mg (*)] 5 mg TUBE DAILY PRN 12/27/15 Nystatin [Mycostatin Oral Liquid 5 ml PO BID 12/27/15 (*)] guaiFENesin/DEXTROMETHORPHAN 10 ml PO Q4HRS PRN #0 ml 12/31/15 [Robitussin Dm Oral Liquid (*)] Acetaminophen [Tylenol 325mg (*)] 650 mg TUBE Q4 PRN 05/26/16 Ferrous Sulfate [Ferrous Sulf 325 325 mg TUBE DAILY@15 05/26/16 MG (*)] levOFLOXACIN [levAQUIN (*)] 750 mg TUBE Q2D@1000 #2 tab 05/29/16 Medical Decision Making - Diagnostics Imagin am: CT head interpreted by radiologist is negative for intracranial hemorrhage and/or skull fracture. Images reviewed by myself Procedures: Procedure: Laceration repair with tissue adhesive Verbal consent was obtained from the patient. The right forehead was scrubbed and explored to its base with a gloved finger. No foreign body seen, no foreign bodies palpated. There were no deep structures involved. The wound was repaired with tissue adhesive. The procedure was performed by myself. Patient has been informed that scarring will occur, although every effort has been made to minimize this. ED Course/Re-evaluation: 10:15 a.m.: Patient was re-evaluated with serial exams. She is maintaining her baseline status according to her son who lives with her. I had a lengthy discussion with the patient and her son regarding their current living situation he states that he feels comfortable caring for her and comfortable with her current living situation. They have had PT/OT consultation recently. Discussed head injury precautions, discussed delayed intracranial bleeding. At this time the patient and son feel comfortable being discharged. Usual and customary head injury precautions instructions provided. - Data Points Medications Given: Discontinued Medications Octyl Cyanoacrylate (Dermabond) 1 each TP EDNOW ONE Stop: 06/27/16 09:34 Last Admin: 06/27/16 09:36 Dose: 1 each Departure - Departure Disposition: Home, Routine, Self-Care Clinical Impression: Forehead laceration Qualifiers: Encounter type: initial encounter Qualified Code(s): S01.81XA - Laceration without foreign body of other part of head, initial encounter Head injury Qualifiers: Encounter type: initial encounter Qualified Code(s): S09.90XA - Unspecified injury of head, initial encounter Condition: Good Instructions: Laceration (ED), Skull Fracture (ED), Head Injury (ED), Skin Adhesive Care (ED) Additional Instructions: ALTHOUGH THERE IS NO EVIDENCE OF SERIOUS HEAD INJURY AT THIS TIME, DELAYED SIGNS CAN APPEAR 24 TO 48 HOURS AFTER INJURY. WE RECOMMEND THAT YOU DESIGNATE A FRIEND OR FAMILY MEMBER TO OBSERVE YOU OVER THE NEXT FEW DAYS TO ENSURE THAT YOUR CONDITION IS PROGRESSING NORMALLY. PLEASE RETURN TO THE EMERGENCY DEPARTMENT (ED) IMMEDIATELY IF YOU HAVE INCREASED HEADACHE, PERSISTENT HEADACHE , VOMITING, WEAKNESS, CONFUSION OR VISUAL PROBLEMS. WE RECOMMEND THAT YOU DO NOT RESUME CONTACT SPORTS OR ACTIVITIES THAT TAKE COORDINATION OR BALANCE SUCH SKIING OR RIDING A BICYCLE UNTIL CLEARED TO DO SO BY YOUR DOCTOR OR BY A NEUROLOGIST. Referrals: Ashley Smith MD [Primary Care Provider] - 06/30/16
[2016-06-27 10:33] VITALS: BP 132/76; PULSE 87; RESP 17; TEMP 98.8; O2SAT 95
== END 2016-06-27 10:32 | disposition home or self-care (01) ==
PROC: 0HQ1XZZ Repair Face Skin, External Approach (ICD-10-PCS; principal; 2016-06-27)
DX: S01.81XA Laceration without foreign body of other part of head, initial encounter (principal); E11.9 Type 2 diabetes mellitus without complications; Z86.73 Personal history of transient ischemic attack (TIA), and cerebral infarction without residual deficits; Z79.4 Long term (current) use of insulin; Z79.84 Long term (current) use of oral hypoglycemic drugs; Z79.82 Long term (current) use of aspirin; W18.39XA Other fall on same level, initial encounter; Y92.009 Unspecified place in unspecified non-institutional (private) residence as the place of occurrence of the external cause

== ENCOUNTER 2016-07-26 09:19 | Emergency (ER) | payer OTHER, MEDICAID ==
[2016-07-26 09:25] VITALS: RESP 16; TEMP 98.2; O2SAT 92
[2016-07-26] MEDS ORDERED: NS 500 ML IV ONE (09:41)
--- NOTE | 2016-07-26 09:58 | EDPHY ---
H & P Stated Complaint: gen. abd pain since yesterday, g-tube clogged and leaking Source: Patient, Family, Old records - Personal History Current Tetanus/Diphtheria Vaccine: Unsure Current Tetanus Diphtheria and Acellular Pertussis (TDAP): Unsure Tetanus Vaccine Date: ? - Medical/Surgical History Hx Asthma: No Hx Chronic Respiratory Disease: Yes Hx Diabetes: Yes Hx Cardiac Disease: No Hx Renal Disease: No Hx Cirrhosis: No Hx Alcoholism: No Hx HIV/AIDS: No Hx Splenectomy or Spleen Trauma: No Other PMH: TIA, TUBE FEEDINGS- SWALLOW ISSUES, GLOBUAL TUMOR L inner EAR. IDDM, HOME 02, ASPIRATION PNEUMONIA-g tube placed 2010 - Social History Smoking Status: Never smoked HPI/ROS: CHIEF COMPLAINT: G-tube dysfunction HISTORY OF PRESENT ILLNESS: Patient's son is at bedside and provides the history. He says that since yesterday he has had difficulty getting the G-tube to work. Patient has history of neurologic disorder with dysphagia, that she is NPO at all times. The G-tube is used for four times daily Glucerna feedings. Since yesterday he has had difficulty getting the glycerin to stay down. The fluid seems to extrusion distally in the tube or comes back up from around the tube. It is difficult for him to say. There is also some redness around the site. She has also been indicating that she is in pain around the site of the tube. No fever or chills. No vomiting. No diarrhea. She did have a bowel movement this morning. The G-tube has been in place for several years without replacement. No other associated complaints or modifying factors. PREVIOUS ABDOMINAL SURGERIES/DIAGNOSES: Current G-tube. Previous GJ tube REVIEW OF SYSTEMS: Ten systems reviewed and are negative unless otherwise noted in the HPI EXAMINATION: General Appearance: Alert, no distress Head: normocephalic, atraumatic Eyes: Pupils equal and round, no conjunctival pallor or injection ENT, Mouth: Mucous membranes moist Neck: Normal inspection, supple, non-tender Respiratory: Lungs are clear to auscultation. No wheezing, rhonchi or crackles. Cardiovascular: Regular rate and rhythm Gastrointestinal: Abdomen is soft. Mild tenderness and erythema surrounding the G-tube insertion site. No fluctuance. No purulence. Soft tissue present at the G-tube ostomy. No tympany. No rigidity. Non-acute abdomen. Neurological: A&O, nonfocal Skin: Warm and dry, no rash. No petechiae or purpura. There is erythema surrounding the G-tube ostomy. This is approximately 2 cm in radius Extremities: Nontender, no pedal edema Psychiatric: Mood and affect normal DIFFERENTIAL DIAGNOSES: Including but not limited to G-tube dysfunction, small-bowel obstruction, enteritis, perforated G2, duodenitis, intra-abdominal abscess MDM: 9:40 a.m. Abdominal pain surrounding the G-tube site with malfunction of the G-tube. Abdominal exam is benign and nonacute, but there is moderate erythema surrounding the G-tube site. There is mild tissue extrusion that is concerning for presence of bowel. I have ordered a CT scan of the abdomen and pelvis. Her vital signs are stable and she is in no acute distress. 11:50 a.m. Laboratory studies are baseline for the patient. No acute changes in her abdominal labs. She is resting comfortably. CT scan of the abdomen and pelvis returns showing that the tube is not in place. There are other findings as documented in the impression. I paged earthmoving labourer to discuss. 12:00 p.m. I discussed case with Dr. Rojas. He has verbalized that he is okay with us attempting to replace the G-tube at bedside. He states that she may need interventional radiology. 12:[address] New has replaced the G-tube at bedside without complication. Tube study for confirmation is pending at this time. 1:05 p.m. Tube study has returned with verification of the G-tube placement. She is resting comfortably in no acute distress. She is comfortable being discharged home. She is to resume her tube feedings. She is to contact her GI physician Dr. Rojas on Thursday for follow-up. Return to the ER for any return of her abdominal pain or difficulty tube feeding. She and her son are comfortable with this plan. She is discharged home in stable condition. ED Precautions: Worsening pain. Fever. Bloody stools. Bloody emesis. Constipation or diarrhea. SUPERVISION: Patient was evaluated in conjunction with the supervising physician. Please see their note for details. (Arturo Cole) Constitutional: Initial Vital Signs Temperature (C) 98.2 F 07/26/16 09:22 Heart Rate 55 L 07/26/16 09:22 Respiratory Rate 16 04/29/17 09:22 Blood Pressure 113/71 07/26/16 09:22 O2 Sat (%) 92 07/26/16 09:22 O2 Delivery Mode Room Air Allergies/Adverse Reactions: amoxicillin trihydrate [From Augmentin] Allergy (Mild, Verified 06/27/16 09:18) Other-Enter Comments potassium clavulanate [From Augmentin] Allergy (Mild, Verified 06/27/16 09:18) Other-Enter Comments Home Medications: Medication Instructions Recorded FLUoxetine [Prozac 20 MG (*)] 60 mg TUBE DAILY 11/30/11 Insulin Glargine,Hum.rec.anlog 12 unit SQ DAILY@1900 11/30/11 [Lantus] amLODIPine BESYLATE [Norvasc 5 mg 5 mg TUBE BID 11/30/11 (*)] busPIRone [Buspar (*)] 5 mg TUBE BID 11/30/11 metFORMIN HCL [Glucophage 500 mg 500 mg TUBE DAILY 11/30/11 (*)] Albuterol Sulfate [Albuterol 1 - 2 puffs IH Q4H PRN 04/27/14 Inhaler Hfa] Albuterol [Proventil Neb] 3 ml IH TID 04/27/14 Fluticasone Hfa 44 Mcg [Flovent 44 2 puffs IH HS 04/27/14 MCG Hfa MDI (*)] Pantoprazole Sodium [Protonix 40mg 40 mg TUBE BIDMEAL 04/27/14 (*)] Calcium Carbonate [Tums 500MG (*)] 500 mg TUBE HS 07/03/15 INSULIN REGULAR, HUMAN [Novolin R] 2 - 6 unit SQ DAILY PRN 07/03/15 Oxybutynin Chloride [Ditropan] 5 mg TUBE BID 07/03/15 Polyethylene Glycol 3350 [Miralax 17 gm TUBE DAILY 07/03/15 17 gm (*)] Hydrocodone/Acetaminophen [[place] 0.5 each TUBE HS 09/29/15 5/325 (*)] Losartan Potassium [Cozaar 50 mg 50 mg TUBE BID 09/29/15 (*)] Aspirin [Aspirin 81mg (*)] 81 mg TUBE DAILY #0 tab.chew 10/01/15 Metoclopramide [Reglan 5 mg (*)] 5 mg TUBE DAILY PRN 12/27/15 Nystatin [Mycostatin Oral Liquid 5 ml PO BID 12/27/15 (*)] guaiFENesin/DEXTROMETHORPHAN 10 ml PO Q4HRS PRN #0 ml 12/31/15 [Robitussin Dm Oral Liquid (*)] Acetaminophen [Tylenol 325mg (*)] 650 mg TUBE Q4 PRN 05/26/16 Ferrous Sulfate [Ferrous Sulf 325 325 mg TUBE DAILY@15 05/26/16 MG (*)] levOFLOXACIN [levAQUIN (*)] 750 mg TUBE Q2D@1000 #2 tab 05/29/16 Medical Decision Making - Diagnostics Imaging Results: Imaging Impressions Abdomen CT 07/26/16 09:42 Impression: 1. The internal gastrostomy tube is no longer present. Perhaps the chronic tube tract can be negotiated with a replacement tube. Consider consultation with interventional radiology. 2. Small left lower lobe consolidation with a new hiatal hernia: Atelectasis versus pneumonia. 3. Coronary artery disease 4. Chronic pelvic floor prolapse. A message was left with Dr. New, for Arturo Cole at 11:37 AM. General information for patients regarding this examination can be found at [email or web address]. If you have questions or comments about this report, please contact me at (hospital) or [phone] (cell). Abdomen X-Ray 07/26/16 12:10 Impression: Gastrostomy tube in expected position. ED Course/Re-evaluation: 1206: I evaluated this patient as the supervising physician for CLEO Roy. We replaced the g-tube at this time. (Robbin New) - Data Points Laboratory Results: Laboratory Results 07/26/16 10:00 07/26/16 10:00 07/26/16 07/26/16 07/26/16 10:10 10:00 10:00 WBC 6.57 10^3/uL 10^3/uL (3.80-9.50) RBC 4.24 10^6/uL 10^6/uL (4.18-5.33) Hgb 12.1 g/dL L g/dL (12.6-16.3) POC Hgb 12.9 gm/dL gm/dL (12.3-15.9) Hct 37.9 % L % (38.0-47.0) POC Hct 38 % % (35.5-47.5) MCV 89.4 fL fL (81.5-99.8) MCH 28.5 pg pg (27.9-34.1) MCHC 31.9 g/dL L g/dL (32.4-36.7) RDW 16.5 % H % (11.5-15.2) Plt Count 221 10^3/uL 10^3/uL (150-400) MPV 11.3 fL fL (8.7-11.7) Neut % (Auto) 78.5 % H % (39.3-74.2) Lymph % (Auto) 14.8 % L % (15.0-45.0) [place] % (Auto) 5.9 % % (4.5-13.0) Eos % (Auto) 0.3 % L % (0.6-7.6) Baso % (Auto) 0.2 % L % (0.3-1.7) Nucleat RBC Rel Count 0.0 % % (0.0-0.2) Absolute Neuts (auto) 5.16 10^3/uL 10^3/uL (1.70-6.50) Absolute Lymphs (auto) 0.97 10^3/uL L 10^3/uL (1.00-3.00) Absolute Monos (auto) 0.39 10^3/uL 10^3/uL (0.30-0.80) Absolute Eos (auto) 0.02 10^3/uL L 10^3/uL (0.03-0.40) Absolute Basos (auto) 0.01 10^3/uL L 10^3/uL (0.02-0.10) Absolute Nucleated RBC 0.00 10^3/uL 10^3/uL (0-0.01) Immature Gran % 0.3 % % (0.0-1.1) Immature Gran # 0.02 10^3/uL 10^3/uL (0.00-0.10) POC Sodium 138 mEq/L mEq/L (134-144) Sodium 139 mEq/L mEq/L (134-144) POC Potassium 4.3 mEq/L mEq/L (3.3-5.0) Potassium 4.3 mEq/L mEq/L (3.5-5.2) POC Chloride 101 mEq/L mEq/L (96-108) Chloride 104 mEq/L mEq/L (97-110) Carbon Dioxide 27 mEq/l mEq/l (22-31) Anion Gap 8 mEq/L mEq/L (8-16) POC BUN 24 mg/dL H mg/dL (7-23) BUN 20 mg/dL mg/dL (7-23) Creatinine 0.6 mg/dL mg/dL (0.6-1.0) POC Creatinine 0.6 mg/dL mg/dL (0.6-1.2) Estimated GFR > 60 Glucose 106 mg/dL H mg/dL (70-100) POC Glucose 107 mg/dL H mg/dL (70-100) Calcium 9.3 mg/dL mg/dL (8.5-10.4) Total Bilirubin 0.6 mg/dL mg/dL (0.1-1.4) Conjugated Bilirubin 0.3 mg/dL mg/dL (0.0-0.5) Unconjugated Bilirubin 0.3 mg/dL mg/dL (0.0-1.1) AST 16 IU/L IU/L (14-46) ALT 24 IU/L IU/L (9-52) Alkaline Phosphatase 119 IU/L IU/L (38-126) Total Protein 7.4 g/dL g/dL (6.3-8.2) Albumin 3.9 g/dL g/dL (3.5-5.0) Lipase 30.0 IU/L IU/L (23-300) Medications Given: Discontinued Medications Sodium Chloride (Ns) 500 mls @ 0 mls/hr IV ONCE ONE PRN Reason: Wide Open Stop: 07/26/16 09:42 Last Admin: 07/26/16 10:10 Dose: 500 mls Point of Care Test Results: 07/26/16 10:10 POC Sodium 138 POC Potassium 4.3 POC Chloride 101 POC BUN 24 H POC Creatinine 0.6 POC Glucose 107 H Departure - Departure Disposition: Home, Routine, Self-Care Clinical Impression: Gastrostomy tube dysfunction Condition: Good Instructions: How to Use and Care for Your PEG Tube (ED) Additional Instructions: Contact Dr. Rojas on Thursday for follow-up. Return to ER for any complications or abdominal pain Referrals: Ashley Smith MD [Primary Care Provider] - As per Instructions Alex Rojas MD [place] [place] - As per Instructions
[2016-07-26 10:12] LABS: % IMMATURE GRANULYOCYTES 0.3 % (0.0-1.1); ABSOLUTE IMMATURE GRANULOCYTES 0.02 10^3/uL (0.00-0.10); ADD DIFF? NO; ADD MORPH? NO; ADD SCAN? NO; ATYPICAL LYMPHOCYTE FLAG 10 (0-99); FRAGMENT RBC FLAG 0 (0-99); HEMATOCRIT 37.9 % (38.0-47.0); HEMOGLOBIN 12.1 g/dL (12.6-16.3); LEFT SHIFT FLG 0 (0-99); LIPEMIA HEMOLYSIS FLAG 80 (0-99); MEAN CELL HEMOGLOBIN 28.5 pg (27.9-34.1); MEAN CELL HEMOGLOBIN CONCENTR. 31.9 g/dL (32.4-36.7); MEAN CELL VOLUME 89.4 fL (81.5-99.8); MEAN PLATELET VOLUME 11.3 fL (8.7-11.7); PLATELET CLUMPS FLAG 10 (0-99); PLATELET COUNT 221 10^3/uL (150-400); RED BLOOD CELL COUNT 4.24 10^6/uL (4.18-5.33); RED CELL DISTRIBUTION WIDTH 16.5 % (11.5-15.2)
[2016-07-26] MEDS ORDERED: IOPAMIDOL (ISOVUE-300) 100 ML BTL IV ONE (10:26)
[2016-07-26 10:32] LABS: ALANINE AMINOTRANSFERASE 24 IU/L (9-52); ALBUMIN 3.9 g/dL (3.5-5.0); ALKALINE PHOSPHATASE 119 IU/L (38-126); ANION GAP 8 mEq/L (8-16); ASPARTATE AMINOTRANSFERASE 16 IU/L (14-46); BILIRUBIN,TOTAL 0.6 mg/dL (0.1-1.4); BILIRUBIN-CONJUGATED 0.3 mg/dL (0.0-0.5); BILIRUBIN-UNCONJUGATED 0.3 mg/dL (0.0-1.1); CALCIUM 9.3 mg/dL (8.5-10.4); CARBON DIOXIDE 27 mEq/l (22-31); CHLORIDE 104 mEq/L (97-110); CREATININE 0.6 mg/dL (0.6-1.0); GLOMERULAR FILTRATION RATE > 60; GLUCOSE 106 mg/dL (70-100); POTASSIUM 4.3 mEq/L (3.5-5.2); SODIUM 139 mEq/L (134-144); TOTAL PROTEIN 7.4 g/dL (6.3-8.2)
[2016-07-26 13:33] VITALS: BP 150/77; PULSE 80
== END 2016-07-26 13:32 | disposition home or self-care (01) ==
PROC: 0DH63UZ Insertion of Feeding Device into Stomach, Percutaneous Approach (ICD-10-PCS; principal; 2016-07-26)
PROC: 0DP63UZ Removal of Feeding Device from Stomach, Percutaneous Approach (ICD-10-PCS; principal; 2016-07-26)
DX: Z43.1 Encounter for attention to gastrostomy (principal); E11.9 Type 2 diabetes mellitus without complications; Z79.4 Long term (current) use of insulin; Z79.84 Long term (current) use of oral hypoglycemic drugs
CPT/HCPCS: 43760; 74000; 74177; 96360; 99285; Q9967; 82947-QW

== ENCOUNTER 2016-09-16 01:21 | Emergency (ER) | payer OTHER, MEDICAID ==
[2016-09-16] MEDS ORDERED: NS 1,000 ML IV ONE (01:30)
--- NOTE | 2016-09-16 01:33 | EDPHY ---
H & P HPI/ROS: HPI CHIEF COMPLAINT: Fever at home 101.5 HISTORY OF PRESENT ILLNESS: This patient very pleasant 86-year-old female presents emergency room by private vehicle with her son for fever of 101.5 at home around 10:00 p.m.. Her son noticed that she was having some shaking around 10:00 p.m. took her temperature was 101.5degrees ET given 500 mg Tylenol prior to arrival. Upon arrival here in emergency room the patient appears well nontoxic. No coughing no vomiting no hypoxia. He is afebrile here. Son reports to me that the patient has a history of recurrent aspiration pneumonia gets pneumonia often gets febrile. He decided to bring her in emergency room for evaluation as she did have a fever 101.5 at home. He reports no vomiting and no coughing. No evidence of aspiration at home. Patient denies any complaints she does tell me that she is tired. She denies chest pain or shortness of breath denies coughing denies vomiting. No abdominal pain. No urinary symptoms. Of note patient is very hard of hearing. Past Medical History: Recurrent aspiration pneumonia from tube feeds, chronic dysphagia, diabetes type 2, anemia, hypoxic respiratory failure, 2 L of oxygen at night. Past Surgical History: Peg tube Social History: Lives locally, son at bedside denies drugs alcohol tobacco products Family History: Noncontributory ROS REVIEW OF SYSTEMS: A comprehensive 10 point review of systems is otherwise negative aside from elements mentioned in the history of present illness. Exam Constitutional appears well nontoxic, triage nursing summary reviewed, vital signs reviewed, awake/alert. Eyes normal conjunctivae and sclera, EOMI, PERRLA. HENT normal inspection, atraumatic, moist mucus membranes, no epistaxis, neck supple/ no meningismus, no raccoon eyes. Respiratory clear to auscultation bilaterally, normal breath sounds, no respiratory distress, no wheezing. Cardiovascular rate normal, regular rhythm, no murmur, no edema, distal pulses normal. Gastrointestinal PEG tube inside, nontender, clean, soft, non-tender, no rebound, no guarding, normal bowel sounds, no distension, no pulsatile mass. Genitourinary no CVA tenderness. Musculoskeletal no midline vertebral tenderness, full range of motion, no calf swelling, no tenderness of extremities, no meningismus, good pulses, neurovascularly intact. Skin pink, warm, & dry, no rash, skin atraumatic. Neurologic awake, alert and oriented x 3, AAOx3, moves all 4 extremities equally, motor intact, sensory intact, CN II-XII intact, normal cerebellar, normal vision, has some dysarthria at baseline. Psychiatric normal mood/affect. Heme/Lymph/Immune no lymphadenopathy. 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 Evaluate for fever. Re-evaluation: Of note this patient appears really well nontoxic in no acute distress. Clear lungs. Normal vital signs. No hypoxia. Will evaluate for fever. EKG interpretation by me on record in [facility] system system. Impression time of EKG 1:45 a.m., sinus rhythm rate of 59 I do not appreciate acute ischemic change. Specifically no ST elevation. When I compare this to old EKG noted 12/2015 very similar morphology. There is subtle minimal ST elevation in inferior leads to 3 AVF but this appears unchanged when compared to her old EKG on 01/07/2016. Same morphology. Also Q-waves noted in V1 V2 V3. Same as her previous old EKG. I do not appreciate acute new changes on this EKG. [id number]: Patient's chest x-ray reviewed by me. I do not appreciate acute pneumonia. It is noted she does not have a very high white count or lactic acid is at 2. Not elevated. She has no fever here. No hypoxia. She does have a urinalysis that shows she has urinary tract infection 4+ bacteria. I have given her 1 g of IV Rocephin here in the emergency room. Urine culture sent. Will place on Keflex at home. I do feel this patient go home as she has no hypoxia no fever no high white count does not have hypotension does not have an elevated lactic acid. Chest x-ray does not show pneumonia. Place on Keflex for UTI. Most likely cause of fever earlier UTI. She does not appear septic she does not appear ill. I am comfortable allowing her to go home blood cultures been pulled. She did receive gentle IV fluids here. She is not coughing and in no distress she tells me she feels fine. Son updated at bedside. They do understand if she gets high fever again vomiting does not feel well is weak should return emergency room. They understand. Source: Patient - Personal History Tetanus Vaccine Date: ? - Medical/Surgical History Hx Asthma: No Hx Chronic Respiratory Disease: Yes Hx Diabetes: Yes Hx Cardiac Disease: No Hx Renal Disease: No Hx Cirrhosis: No Hx Alcoholism: No Hx HIV/AIDS: No Hx Splenectomy or Spleen Trauma: No Other PMH: TIA, TUBE FEEDINGS- SWALLOW ISSUES, GLOBUAL TUMOR L inner EAR. IDDM, HOME 02, ASPIRATION PNEUMONIA-g tube placed 2010 - Social History Smoking Status: Never smoked Constitutional: Initial Vital Signs Temperature (C) 36.9 C 09/16/16 01:31 Heart Rate 61 09/16/16 01:31 Respiratory Rate 16 09/16/16 01:31 Blood Pressure 145/76 H 09/16/16 01:31 O2 Sat (%) 89 L 09/16/16 01:31 O2 Delivery Mode Room Air O2 (L/minute) 2 Allergies/Adverse Reactions: amoxicillin trihydrate [From Augmentin] Allergy (Mild, Verified 09/16/16 01:29) Other-Enter Comments potassium clavulanate [From Augmentin] Allergy (Mild, Verified 09/16/16 01:29) Other-Enter Comments Home Medications: Medication Instructions Recorded FLUoxetine [Prozac 20 MG (*)] 60 mg TUBE DAILY 11/30/11 Insulin Glargine,Hum.rec.anlog 12 unit SQ DAILY@1900 11/30/11 [Lantus] amLODIPine BESYLATE [Norvasc 5 mg 5 mg TUBE BID 11/30/11 (*)] busPIRone [Buspar (*)] 5 mg TUBE BID 11/30/11 metFORMIN HCL [Glucophage 500 mg 500 mg TUBE DAILY 11/30/11 (*)] Albuterol Sulfate [Albuterol 1 - 2 puffs IH Q4H PRN 04/27/14 Inhaler Hfa] Albuterol [Proventil Neb] 3 ml IH TID 04/27/14 Fluticasone Hfa 44 Mcg [Flovent 44 2 puffs IH HS 04/27/14 MCG Hfa MDI (*)] Pantoprazole Sodium [Protonix 40mg 40 mg TUBE BIDMEAL 04/27/14 (*)] Calcium Carbonate [Tums 500MG (*)] 500 mg TUBE HS 07/03/15 INSULIN REGULAR, HUMAN [Novolin R] 2 - 6 unit SQ DAILY PRN 07/03/15 Oxybutynin Chloride [Ditropan] 5 mg TUBE BID 07/03/15 Polyethylene Glycol 3350 [Miralax 17 gm TUBE DAILY 07/03/15 17 gm (*)] Hydrocodone/Acetaminophen [[place] 0.5 each TUBE HS 09/29/15 5/325 (*)] Losartan Potassium [Cozaar 50 mg 50 mg TUBE BID 09/29/15 (*)] Aspirin [Aspirin 81mg (*)] 81 mg TUBE DAILY #0 tab.chew 10/01/15 Metoclopramide [Reglan 5 mg (*)] 5 mg TUBE DAILY PRN 12/27/15 Nystatin [Mycostatin Oral Liquid 5 ml PO BID 12/27/15 (*)] guaiFENesin/DEXTROMETHORPHAN 10 ml PO Q4HRS PRN #0 ml 12/31/15 [Robitussin Dm Oral Liquid (*)] Acetaminophen [Tylenol 325mg (*)] 650 mg TUBE Q4 PRN 05/26/16 Ferrous Sulfate [Ferrous Sulf 325 325 mg TUBE DAILY@15 05/26/16 MG (*)] levOFLOXACIN [levAQUIN (*)] 750 mg TUBE Q2D@1000 #2 tab 05/29/16 Cephalexin [Keflex] 500 mg PO Q6H #28 cap 09/16/16 Medical Decision Making - Data Points Laboratory Results: Laboratory Results 09/16/16 01:45 09/16/16 01:45 09/16/16 09/16/16 09/16/16 02:00 01:45 01:45 WBC RBC Hgb Hct MCV MCH MCHC RDW Plt Count MPV Neut % (Auto) Lymph % (Auto) Emanuel % (Auto) Eos % (Auto) Baso % (Auto) Nucleat RBC Rel Count Absolute Neuts (auto) Absolute Lymphs (auto) Absolute Monos (auto) Absolute Eos (auto) Absolute Basos (auto) Absolute Nucleated RBC Immature Gran % Immature Gran # PT 12.2 SEC SEC (12.0-15.0) INR 0.91 (0.83-1.16) APTT 21.2 SEC L SEC (23.0-38.0) VBG Lactic Acid Sodium 137 mEq/L mEq/L (134-144) Potassium 4.6 mEq/L mEq/L (3.5-5.2) Chloride 101 mEq/L mEq/L (97-110) Carbon Dioxide 25 mEq/l mEq/l (22-31) Anion Gap 11 mEq/L mEq/L (8-16) BUN 33 mg/dL H mg/dL (7-23) Creatinine 0.7 mg/dL mg/dL (0.6-1.0) Estimated GFR > 60 Glucose 165 mg/dL H mg/dL (70-100) Calcium 10.3 mg/dL mg/dL (8.5-10.4) Total Bilirubin 0.7 mg/dL mg/dL (0.1-1.4) Conjugated Bilirubin 0.4 mg/dL mg/dL (0.0-0.5) Unconjugated Bilirubin 0.3 mg/dL mg/dL (0.0-1.1) AST 33 IU/L IU/L (14-46) ALT 30 IU/L IU/L (9-52) Alkaline Phosphatase 95 IU/L IU/L (38-126) Troponin I Pending NT-Pro-B Natriuret Pep Pending Total Protein 8.4 g/dL H g/dL (6.3-8.2) Albumin 4.3 g/dL g/dL (3.5-5.0) Urine Color YELLOW Urine Appearance MODERATELY TURBID Urine pH 6.0 (5.0-7.5) Ur Specific [place] 1.018 (1.002-1.030) Urine Protein NEGATIVE (NEGATIVE) Urine Ketones NEGATIVE (NEGATIVE) Urine Blood NEGATIVE (NEGATIVE) Urine Nitrate NEGATIVE (NEGATIVE) Urine Bilirubin NEGATIVE (NEGATIVE) Urine Urobilinogen NEGATIVE EU EU (0.2-1.0) Ur Leukocyte Esterase 3+ H (NEGATIVE) Urine RBC 15-25 /hpf H /hpf (0-3) Urine WBC 50-182 /hpf H /hpf (0-3) Ur Epithelial Cells Not Reported Urine Bacteria 4+ /hpf H /hpf (NONE SEEN) Urine Glucose NEGATIVE (NEGATIVE) 09/16/16 09/16/16 01:45 01:45 WBC 9.62 10^3/uL H 10^3/uL (3.80-9.50) RBC 4.60 10^6/uL 10^6/uL (4.18-5.33) Hgb 13.7 g/dL g/dL (12.6-16.3) Hct 41.2 % % (38.0-47.0) MCV 89.6 fL fL (81.5-99.8) MCH 29.8 pg pg (27.9-34.1) MCHC 33.3 g/dL g/dL (32.4-36.7) RDW 17.0 % H % (11.5-15.2) Plt Count 263 10^3/uL 10^3/uL (150-400) MPV 12.4 fL H fL (8.7-11.7) Neut % (Auto) 83.5 % H % (39.3-74.2) Lymph % (Auto) 13.1 % L % (15.0-45.0) Emanuel % (Auto) 3.0 % L % (4.5-13.0) Eos % (Auto) 0.0 % L % (0.6-7.6) Baso % (Auto) 0.1 % L % (0.3-1.7) Nucleat RBC Rel Count 0.0 % % (0.0-0.2) Absolute Neuts (auto) 8.03 10^3/uL H 10^3/uL (1.70-6.50) Absolute Lymphs (auto) 1.26 10^3/uL 10^3/uL (1.00-3.00) Absolute Monos (auto) 0.29 10^3/uL L 10^3/uL (0.30-0.80) Absolute Eos (auto) 0.00 10^3/uL L 10^3/uL (0.03-0.40) Absolute Basos (auto) 0.01 10^3/uL L 10^3/uL (0.02-0.10) Absolute Nucleated RBC 0.00 10^3/uL 10^3/uL (0-0.01) Immature Gran % 0.3 % % (0.0-1.1) Immature Gran # 0.03 10^3/uL 10^3/uL (0.00-0.10) PT INR APTT VBG Lactic Acid 2.1 mmol/L mmol/L (0.7-2.1) Sodium Potassium Chloride Carbon Dioxide Anion Gap BUN Creatinine Estimated GFR Glucose Calcium Total Bilirubin Conjugated Bilirubin Unconjugated Bilirubin AST ALT Alkaline Phosphatase Troponin I NT-Pro-B Natriuret Pep Total Protein Albumin Urine Color Urine Appearance Urine pH Ur Specific [place] Urine Protein Urine Ketones Urine Blood Urine Nitrate Urine Bilirubin Urine Urobilinogen Ur Leukocyte Esterase Urine RBC Urine WBC Ur Epithelial Cells Urine Bacteria Urine Glucose Medications Given: Discontinued Medications Sodium Chloride (Ns) 1,000 mls @ 0 mls/hr IV ONCE ONE; Wide Open PRN Reason: Protocol Stop: 09/16/16 01:31 Last Admin: 09/16/16 01:49 Dose: 1,000 mls Departure - Departure Disposition: Home, Routine, Self-Care Clinical Impression: UTI (urinary tract infection) Qualifiers: Urinary tract infection type: acute cystitis Hematuria presence: with hematuria Qualified Code(s): N30.01 - Acute cystitis with hematuria Condition: Good Instructions: Urinary Tract Infection in Women (ED) Additional Instructions: 1. Please stay well-hydrated drink lots of fluids. 2. Return emergency room if develops any worsening symptoms this includes high fever, vomiting shortness of breath or you do not feel well. 3. I do not see a pneumonia on her x-ray today however your urine does appear infected. Referrals: Ashley Smith MD [Primary Care Provider] - As per Instructions Prescriptions: Cephalexin [Keflex] 500 mg PO Q6H #28 cap
[2016-09-16 01:34] VITALS: RESP 16; TEMP 98.4
--- NOTE | 2016-09-16 01:47 | CPEKG ---
Heart Rate: 59 RR Interval: 1017 P-R Interval: 176 QRSD Interval: 80 QT Interval: 472 QTC Interval: 468 P New Site: -32 QRS New Site: 24 T Wave New Site: 25 EKG Severity - ABNORMAL ECG - EKG Impression: SINUS RHYTHM EKG Impression: PROBABLE INFERIOR INFARCT, AGE INDETERMINATE EKG Impression: CONSIDER ANTERIOR INFARCT Electronically Signed By: Sonia Montemayor 16-Sep-2016 21:23:08
[2016-09-16 02:12] LABS: % IMMATURE GRANULYOCYTES 0.3 % (0.0-1.1); ABSOLUTE IMMATURE GRANULOCYTES 0.03 10^3/uL (0.00-0.10); ADD DIFF? NO; ADD MORPH? NO; ADD SCAN? NO; ATYPICAL LYMPHOCYTE FLAG 0 (0-99); FRAGMENT RBC FLAG 20 (0-99); HEMATOCRIT 41.2 % (38.0-47.0); HEMOGLOBIN 13.7 g/dL (12.6-16.3); LEFT SHIFT FLG 0 (0-99); LIPEMIA HEMOLYSIS FLAG 80 (0-99); MEAN CELL HEMOGLOBIN 29.8 pg (27.9-34.1); MEAN CELL HEMOGLOBIN CONCENTR. 33.3 g/dL (32.4-36.7); MEAN CELL VOLUME 89.6 fL (81.5-99.8); MEAN PLATELET VOLUME 12.4 fL (8.7-11.7); PLATELET CLUMPS FLAG 20 (0-99); PLATELET COUNT 263 10^3/uL (150-400)
[2016-09-16 02:20] LABS: COLOR YELLOW; LEUKOCYTE ESTERASE,URINE 3+ (NEGATIVE); NITRITE,URINE NEGATIVE (NEGATIVE)
[2016-09-16 02:26] LABS: BACTERIA 4+ /hpf (NONE SEEN); RBC,URINE 15-25 /hpf (0-3); WBC,URINE 50-182 /hpf (0-3)
[2016-09-16 02:29] LABS: INR 0.91 (0.83-1.16); PROTIME(PATIENT) 12.2 SEC (12.0-15.0)
[2016-09-16 02:30] LABS: ALANINE AMINOTRANSFERASE 30 IU/L (9-52); ALBUMIN 4.3 g/dL (3.5-5.0); ALKALINE PHOSPHATASE 95 IU/L (38-126); ANION GAP 11 mEq/L (8-16); APTT 21.2 SEC (23.0-38.0); ASPARTATE AMINOTRANSFERASE 33 IU/L (14-46); BILIRUBIN,TOTAL 0.7 mg/dL (0.1-1.4); BILIRUBIN-CONJUGATED 0.4 mg/dL (0.0-0.5); BILIRUBIN-UNCONJUGATED 0.3 mg/dL (0.0-1.1); CALCIUM 10.3 mg/dL (8.5-10.4); CARBON DIOXIDE 25 mEq/l (22-31); CHLORIDE 101 mEq/L (97-110); CREATININE 0.7 mg/dL (0.6-1.0); GLOMERULAR FILTRATION RATE > 60; GLUCOSE 165 mg/dL (70-100); POTASSIUM 4.6 mEq/L (3.5-5.2); SODIUM 137 mEq/L (134-144); TOTAL PROTEIN 8.4 g/dL (6.3-8.2)
[2016-09-16 02:42] LABS: TROPONIN I < 0.012 ng/mL (0-0.034)
[2016-09-16 03:17] VITALS: BP 149/73; PULSE 58; O2SAT 100
== END 2016-09-16 03:42 | disposition home or self-care (01) ==
DX: N30.01 Acute cystitis with hematuria (principal); B96.89 Other specified bacterial agents as the cause of diseases classified elsewhere; E11.9 Type 2 diabetes mellitus without complications; Z79.4 Long term (current) use of insulin; Z79.82 Long term (current) use of aspirin; Z79.84 Long term (current) use of oral hypoglycemic drugs
CPT/HCPCS: 71020; 93005; 96365; 99285; J0696

== ENCOUNTER 2016-10-07 12:27 | Emergency (ER) | payer OTHER, MEDICAID ==
[2016-10-07 13:07] VITALS: RESP 16; TEMP 99
--- NOTE | 2016-10-07 15:02 | EDPHY ---
H & P Time Seen by Provider: 10/07/16 13:15 HPI/ROS: CHIEF COMPLAINT: Mechanical fall, knee pain HISTORY OF PRESENT ILLNESS: 86-year-old female presents to the emergency department by ambulance with her son after she had a mechanical fall last evening and injured her right knee. The son who is her full-time caregiver was at home helping her on the commode and then he turned his back for something and she apparently tried to get up and then twisted and fell on her right knee. She complains of isolated pain to the right knee. No reports of hitting her head or losing consciousness. She does not have a headache. Denies neck or back pain. Denies chest pain or difficulty breathing. Denies abdominal pain. REVIEW OF SYSTEMS: Constitutional: No fever, no chills. Eyes: No double or blurry vision. ENT: No sore throat. Respiratory: No cough, no shortness of breath. Cardiac: No chest pain. Gastrointestinal: No abdominal pain, vomiting or diarrhea. Genitourinary: No dysuria. Musculoskeletal: Knee pain as above. No neck or back pain. Skin: No rashes. Neurological: No headache. Past Medical/Surgical History: TIA, feeding to, insulin-dependent diabetic, home oxygen at night and as needed , recent pneumonia Social History: and lives in [place] Smoking Status: Never smoked Physical Exam: General Appearance: Alert, no distress. Vital signs are stable. Eyes: Pupils equal and round. Extraocular motions are all intact. ENT: Mouth: Mucous membranes moist. Respiratory: No wheezing, rhonchi, or rales, lungs are clear to auscultation. Cardiovascular: Regular rate and rhythm. 3/6 systolic murmur noted. Gastrointestinal: Abdomen is soft and nontender, no masses, no rebound or guarding, bowel sounds normal. Neurological: Alert and oriented x 3, cranial nerves II through XII grossly intact Skin: Warm and dry, no rashes. Musculoskeletal: Nontender to palpate along the cervical, thoracic or lumbar spine. Neck is supple. Extremities: Effusion noted to the right knee. No redness or warmth. No abrasion. No ecchymosis. Limited flexion secondary to pain. No obvious ligament instability. Full range of motion of the left lower extremity. Full range of motion of her right ankle and right hip. Psychiatric: Patient is oriented X 3, there is no agitation. Constitutional: Initial Vital Signs Temperature (C) 37.2 C 10/07/16 12:27 Heart Rate 53 L 10/07/16 12:27 Respiratory Rate 16 10/07/16 12:27 Blood Pressure 112/54 L 10/07/16 12:27 O2 Sat (%) 94 10/07/16 12:27 O2 Delivery Mode Room Air Allergies/Adverse Reactions: amoxicillin trihydrate [From Augmentin] Allergy (Mild, Verified 09/16/16 01:29) Other-Enter Comments potassium clavulanate [From Augmentin] Allergy (Mild, Verified 09/16/16 01:29) Other-Enter Comments Home Medications: Medication Instructions Recorded FLUoxetine [Prozac 20 MG (*)] 60 mg TUBE DAILY 11/30/11 Insulin Glargine,Hum.rec.anlog 12 unit SQ DAILY@1900 11/30/11 [Lantus] amLODIPine BESYLATE [Norvasc 5 mg 5 mg TUBE BID 11/30/11 (*)] busPIRone [Buspar (*)] 5 mg TUBE BID 11/30/11 metFORMIN HCL [Glucophage 500 mg 500 mg TUBE DAILY 11/30/11 (*)] Albuterol Sulfate [Albuterol 1 - 2 puffs IH Q4H PRN 04/27/14 Inhaler Hfa] Albuterol [Proventil Neb] 3 ml IH TID 04/27/14 Fluticasone Hfa 44 Mcg [Flovent 44 2 puffs IH HS 04/27/14 MCG Hfa MDI (*)] Pantoprazole Sodium [Protonix 40mg 40 mg TUBE BIDMEAL 04/27/14 (*)] Calcium Carbonate [Tums 500MG (*)] 500 mg TUBE HS 07/03/15 INSULIN REGULAR, HUMAN [Novolin R] 2 - 6 unit SQ DAILY PRN 07/03/15 Oxybutynin Chloride [Ditropan] 5 mg TUBE BID 07/03/15 Polyethylene Glycol 3350 [Miralax 17 gm TUBE DAILY 07/03/15 17 gm (*)] Hydrocodone/Acetaminophen [[place] 0.5 each TUBE HS 09/29/15 5/325 (*)] Losartan Potassium [Cozaar 50 mg 50 mg TUBE BID 09/29/15 (*)] Aspirin [Aspirin 81mg (*)] 81 mg TUBE DAILY #0 tab.chew 10/01/15 Metoclopramide [Reglan 5 mg (*)] 5 mg TUBE DAILY PRN 12/27/15 Nystatin [Mycostatin Oral Liquid 5 ml PO BID 12/27/15 (*)] guaiFENesin/DEXTROMETHORPHAN 10 ml PO Q4HRS PRN #0 ml 12/31/15 [Robitussin Dm Oral Liquid (*)] Acetaminophen [Tylenol 325mg (*)] 650 mg TUBE Q4 PRN 05/26/16 Ferrous Sulfate [Ferrous Sulf 325 325 mg TUBE DAILY@15 05/26/16 MG (*)] levOFLOXACIN [levAQUIN (*)] 750 mg TUBE Q2D@1000 #2 tab 05/29/16 Cephalexin [Keflex] 500 mg PO Q6H #28 cap 09/16/16 Medical Decision Making - Diagnostics Imaging Results: Imaging Impressions Knee X-Ray 10/07/16 12:58 Impression: 1. Suprapatellar swelling. 2. No fracture. Imaging: I viewed and interpreted images myself Procedures: Patient was placed in straight leg knee immobilizer and examined post application in good placement with normal CLOSING COORDINATOR. ED Course/Re-evaluation: 86-year-old female presents to the emergency department with the right knee injury. X-rays reveal no fractures. She was placed in straight leg knee immobilizer. I did offer admission to the hospital since the patient will now have great deal of difficulty getting around. Her son who is at bedside who is her full- time caregiver thinks that she is okay to go home. They will use the seat of the walker and he will pushed her around that way. I encouraged close follow- up with the orthopedic surgeon on-call. I encouraged them to return to the emergency department if they had any change in symptoms or if she felt worse in any way. They were comfortable with this plan. Differential Diagnosis: Including but not limited to fracture, dislocation, contusion, sprain Departure - Departure Disposition: Home, Routine, Self-Care Clinical Impression: Contusion of right knee Qualifiers: Encounter type: initial encounter Qualified Code(s): S80.01XA - Contusion of right knee, initial encounter Right knee sprain Qualifiers: Encounter type: initial encounter Involved ligament of knee: unspecified ligament Qualified Code(s): S83.91XA - Sprain of unspecified site of right knee , initial encounter Condition: Good Instructions: Knee Sprain (ED), Contusion in Adults (ED) Additional Instructions: Knee immobilizer for comfort and support. Ibuprofen 600mg every 8 hours for pain and swelling as directed. Weight bear as tolerated. Follow up with orthopedic doctor next week to recheck. Referrals: Ashley Smith MD [Primary Care Provider] - As per Instructions Sammy Flores MD [Medical Doctor] - 2-3 days, call for appt. 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
[2016-10-07 17:09] VITALS: BP 131/88; PULSE 55; O2SAT 92
== END 2016-10-07 17:07 | disposition home or self-care (01) ==
LOC: EDUNIT#
DX: S83.91XA Sprain of unspecified site of right knee, initial encounter (principal); S80.01XA Contusion of right knee, initial encounter; E11.9 Type 2 diabetes mellitus without complications; Z79.4 Long term (current) use of insulin; Z79.82 Long term (current) use of aspirin; Z79.84 Long term (current) use of oral hypoglycemic drugs; W18.39XA Other fall on same level, initial encounter

== ENCOUNTER → 2016-12-08 | Outpatient (CLI) | payer OTHER, MEDICAID | LOC: BHFA 16:15 | PROVIDERS: ATTEND Internal Medicine Cardiovascular Disease | DX: R00.1 Bradycardia, unspecified (principal) ==

== ENCOUNTER 2017-03-26 13:31 | Emergency (ER) | payer OTHER, MEDICAID ==
[2017-03-26 13:39] VITALS: RESP 18
--- NOTE | 2017-03-26 14:01 | EDPHY ---
H & P Time Seen by Provider: 03/26/17 13:52 HPI/ROS: CHIEF COMPLAINT: Right hand pain HISTORY OF PRESENT ILLNESS: Swollen right pinky finger metacarpal for the last 24 hr. Slightly red and swollen. Does not remember any trauma. A little bit more difficulty making a fist and bending her fingers. No fever or chills. No red streaking up the hand or wrist or elbow. REVIEW OF SYSTEMS: As above PAST MEDICAL HISTORY: Includes diabetes, stroke with tube feedings, home oxygen , aspiration pneumonia, rheumatoid arthritis Social history: In a wheelchair General Appearance: Alert and conversant, cooperative. Patient has 1 cm total redness warmth tenderness and swelling over the dorsum of the small finger metacarpal joint. She can flex it but has difficulty making a full fist. Normal capillary refill motor and sensory distally. No visible deformity except for the swelling. No proximal tenderness on the hand wrist forearm and no decreased range of motion of the remainder of the hand and wrist. Emergency Department course/MDM: Differential diagnosis includes fracture, cellulitis, gout or pseudogout inflammatory process locally. X-ray plan 1439: Results discussed, plan for splint oral antibiotics and close follow up with primary care on Thursday. Will choose to empirically treat with antibiotics given the patient is immunocompromised with diabetes. Smoking Status: Never smoked Constitutional: Initial Vital Signs Temperature (C) 36.6 C 03/26/17 13:32 Heart Rate 54 L 03/26/17 13:32 Respiratory Rate 18 03/26/17 13:32 Blood Pressure 134/70 H 03/26/17 13:32 O2 Sat (%) 92 03/26/17 13:32 O2 Delivery Mode Room Air Allergies/Adverse Reactions: amoxicillin trihydrate [From Augmentin] Allergy (Mild, Verified 03/26/17 13:32) Other-Enter Comments potassium clavulanate [From Augmentin] Allergy (Mild, Verified 03/26/17 13:32) Other-Enter Comments Home Medications: Medication Instructions Recorded FLUoxetine [Prozac 20 MG (*)] 60 mg TUBE DAILY 11/30/11 Insulin Glargine,Hum.rec.anlog 12 unit SQ DAILY@1900 11/30/11 [Lantus] amLODIPine BESYLATE [Norvasc 5 mg 5 mg TUBE BID 11/30/11 (*)] busPIRone [Buspar (*)] 5 mg TUBE BID 11/30/11 metFORMIN HCL [Glucophage 500 mg 500 mg TUBE DAILY 11/30/11 (*)] Albuterol Sulfate [Albuterol 1 - 2 puffs IH Q4H PRN 04/27/14 Inhaler Hfa] Albuterol [Proventil Neb] 3 ml IH TID 04/27/14 Fluticasone Hfa 44 Mcg [Flovent 44 2 puffs IH HS 04/27/14 MCG Hfa MDI (*)] Pantoprazole Sodium [Protonix 40mg 40 mg TUBE BIDMEAL 04/27/14 (*)] Calcium Carbonate [Tums 500MG (*)] 500 mg TUBE HS 07/03/15 INSULIN REGULAR, HUMAN [Novolin R] 2 - 6 unit SQ DAILY PRN 07/03/15 Polyethylene Glycol 3350 [Miralax 17 gm TUBE DAILY 07/03/15 17 gm (*)] Hydrocodone/Acetaminophen [[place] 0.5 each TUBE HS 09/29/15 5/325 (*)] Losartan Potassium [Cozaar 50 mg 50 mg TUBE BID 09/29/15 (*)] Metoclopramide [Reglan 5 mg (*)] 5 mg TUBE DAILY PRN 12/27/15 Nystatin [Mycostatin Oral Liquid 5 ml PO BID 12/27/15 (*)] guaiFENesin/DEXTROMETHORPHAN 10 ml PO Q4HRS PRN #0 ml 12/31/15 [Robitussin Dm Oral Liquid (*)] Acetaminophen [Tylenol 325mg (*)] 650 mg TUBE Q4 PRN 05/26/16 Ferrous Sulfate [Ferrous Sulf 325 325 mg TUBE DAILY@15 05/26/16 MG (*)] Cephalexin [Keflex] 500 mg PO QID #28 cap 03/26/17 MDM/Departure - MDM Imaging Results: Imaging Impressions Hand X-Ray 03/26/17 13:57 Impression: 1. 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 Superimposed degenerative arthropathy of the second metacarpophalangeal joint, DIP joint index finger, and interphalangeal joint of the thumb. 2. Scapholunate interspace widening compatible with ligamentous disruption. Procedures: Procedure: Splint placement. A right ulnar Ortho Glass splint was applied. After application of the splint I returned and re-examined the patient. The splint was adequately immobilizing the joint and distal to the splint the patient's circulation and sensation was intact. - Depart Disposition: Home, Routine, Self-Care Clinical Impression: Cellulitis of right hand Condition: Good Instructions: Cellulitis (ED) Prescriptions: Cephalexin [Keflex] 500 mg PO QID #28 cap Referrals: Ashley Smith MD [Primary Care Provider] - As per Instructions
[2017-03-26 14:57] VITALS: BP 152/81; PULSE 51; TEMP 98.2; O2SAT 91
== END 2017-03-26 15:02 | disposition home or self-care (01) ==
DX: L03.113 Cellulitis of right upper limb (principal); E11.9 Type 2 diabetes mellitus without complications; Z79.4 Long term (current) use of insulin; Z79.84 Long term (current) use of oral hypoglycemic drugs

== ENCOUNTER 2017-07-17 10:38 | Inpatient (IN) | payer OTHER, MEDICAID ==
[2017-07-17] MEDS ORDERED: TRANEXAMIC ACID 1,000 MG/10 ML VIAL TP ONE (10:54)
--- NOTE | 2017-07-17 10:58 | EDPHY ---
H & P Time Seen by Provider: 07/17/17 10:57 HPI/ROS: HPI: This is a 87-year-old female who presents with Chief Complaint: Nosebleed Location: Quality: Duration: Signs and Symptoms: no fever, no nausea, no vomiting, no photophobia, no noise sensitivity, no neck stiffness, no ear pain, no tinnitus, no nasal congestion, no sinus pressure, no weakness, no radiation, no aura Timing: Severity: Context: Modifying Factors: Comment: ROS: see HPI Constitutional: No fever, no chills, no weight loss Eyes: No blurred vision Respiratory: No shortness of breath, no cough Cardiovascular: No chest pain, no palpitations Gastrointestinal: No nausea, no vomiting, no diarrhea, no hematemesis, no blood in stool Genitourinary: No dysuria, no blood in urine Extremities: No myalgias, no edema Neurologic: No weakness, no numbness Skin: No rashes, no petechiae Hematologic: No bruising, no bleeding MEDICAL/SURGICAL/SOCIAL HISTORY: Medical/Surgical history: TIA, TUBE FEEDINGS- SWALLOW ISSUES, GLOBAL TUMOR L inner EAR. IDDM, HOME 02, ASPIRATION PNEUMONIA-g tube placed 2010 Social history: Family history noncontributory. CONSTITUTIONAL: awake and alert, no obvious distress HEENT: Atraumatic and normocephalic, PERRL, EOMI. Nares patent; no rhinorrhea; no nasal mucosal edema. Tympanic membranes clear. Oropharynx clear, no exudate and moist pink mucosa. Airway patent. No lymphadenopathy. No meningismus. Cardiovascular: Normal S1/S2, regular rate, regular rhythm, without murmur rub or gallop. PULMONARY/CHEST: Symmetrical and nontender. Clear to auscultation bilaterally. Good air movement. No accessory muscle usage. ABDOMEN: Soft, nondistended, nontender, no rebound, no guarding, no peritoneal signs, no masses or organomegaly. No CVAT. EXTREMITIES: 2/2 pulses, strength 5/5, no deformities, no clubbing, no cyanosis or edema. NEUROLOGICAL: no focal neuro deficits. GCS 15. SKIN: Warm and dry, no erythema. no rash. Good capillary refill. Source: Patient, RN/MD, EMS Exam Limitations: No limitations - Personal History Tetanus Vaccine Date: ? - Medical/Surgical History Hx Asthma: No Hx Chronic Respiratory Disease: Yes Hx Diabetes: Yes Hx Cardiac Disease: No Hx Renal Disease: No Hx Cirrhosis: No Hx Alcoholism: No Hx HIV/AIDS: No Hx Splenectomy or Spleen Trauma: No Other PMH: TIA, TUBE FEEDINGS- SWALLOW ISSUES, GLOBUAL TUMOR L inner EAR. IDDM, HOME 02, ASPIRATION PNEUMONIA-g tube placed 2010 - Social History Smoking Status: Never smoked Allergies/Adverse Reactions: amoxicillin trihydrate [From Augmentin] Allergy (Mild, Verified 03/26/17 13:32) Other-Enter Comments potassium clavulanate [From Augmentin] Allergy (Mild, Verified 03/26/17 13:32) Other-Enter Comments Home Medications: Medication Instructions Recorded FLUoxetine [Prozac 20 MG (*)] 60 mg TUBE DAILY 11/30/11 Insulin Glargine,Hum.rec.anlog 12 unit SQ DAILY@1900 11/30/11 [Lantus] amLODIPine BESYLATE [Norvasc 5 mg 5 mg TUBE BID 11/30/11 (*)] busPIRone [Buspar (*)] 5 mg TUBE BID 11/30/11 metFORMIN HCL [Glucophage 500 mg 500 mg TUBE DAILY 11/30/11 (*)] Albuterol Sulfate [Albuterol 1 - 2 puffs IH Q4H PRN 04/27/14 Inhaler Hfa] Albuterol [Proventil Neb] 3 ml IH TID 04/27/14 Fluticasone Hfa 44 Mcg [Flovent 44 2 puffs IH HS 04/27/14 MCG Hfa MDI (*)] Pantoprazole Sodium [Protonix 40mg 40 mg TUBE BIDMEAL 04/27/14 (*)] Calcium Carbonate [Tums 500MG (*)] 500 mg TUBE HS 07/03/15 INSULIN REGULAR, HUMAN [Novolin R] 2 - 6 unit SQ DAILY PRN 07/03/15 Polyethylene Glycol 3350 [Miralax 17 gm TUBE DAILY 07/03/15 17 gm (*)] Hydrocodone/Acetaminophen [[place] 0.5 each TUBE HS 09/29/15 5/325 (*)] Losartan Potassium [Cozaar 50 mg 50 mg TUBE BID 09/29/15 (*)] Metoclopramide [Reglan 5 mg (*)] 5 mg TUBE DAILY PRN 12/27/15 Nystatin [Mycostatin Oral Liquid 5 ml PO BID 12/27/15 (*)] guaiFENesin/DEXTROMETHORPHAN 10 ml PO Q4HRS PRN #0 ml 12/31/15 [Robitussin Dm Oral Liquid (*)] Acetaminophen [Tylenol 325mg (*)] 650 mg TUBE Q4 PRN 05/26/16 Ferrous Sulfate [Ferrous Sulf 325 325 mg TUBE DAILY@15 05/26/16 MG (*)] Cephalexin [Keflex] 500 mg PO QID #28 cap 03/26/17 Departure - Departure Referrals: Ashley Smith MD [Primary Care Provider] - As per Instructions
[2017-07-17 11:07] LABS: PLATELET COUNT 243 10^3/uL (150-400)
--- NOTE | 2017-07-17 11:09 | EDPHY ---
H & P Stated Complaint: Nose bleed Time Seen by Provider: 07/17/17 10:57 HPI/ROS: CHIEF COMPLAINT: Nose bleed HISTORY OF PRESENT ILLNESS: 87-year-old female with diabetes and dysphagia presents with a nosebleed. Onset of spontaneous nosebleed from both nares early this morning, unable to stop the bleeding. EMS was contacted on their arrival there was approximately 500 mL of blood present and she had ongoing bleeding from her nose and mouth. Hypotensive on their arrival, with a systolic blood pressure of 90. The bleeding from the nose has now stopped, but she continues to have blood from her mouth. REVIEW OF SYSTEMS: complete 10 point ROS negative except at noted in the HPI - Personal History Current Tetanus Diphtheria and Acellular Pertussis (TDAP): Unsure Tetanus Vaccine Date: ? - Medical/Surgical History Hx Asthma: No Hx Chronic Respiratory Disease: Yes Hx Diabetes: Yes Hx Cardiac Disease: No Hx Renal Disease: No Hx Cirrhosis: No Hx Alcoholism: No Hx HIV/AIDS: No Hx Splenectomy or Spleen Trauma: No Other PMH: TIA, TUBE FEEDINGS- SWALLOW ISSUES, GLOBUAL TUMOR L inner EAR. IDDM, HOME 02, ASPIRATION PNEUMONIA-g tube placed 2010 - Social History Smoking Status: Never smoked - Physical Exam Exam: General Appearance: Alert, pleasant, hard of hearing Eyes: Pupils equal and round, no conjunctival pallor ENT, Mouth: No current blood coming from nose, there is a small amount of blood in the left nares, Blood in mouth and posterior pharynx Neck: Normal inspection Respiratory: Lungs are clear to auscultation Cardiovascular: Regular rate and rhythm Gastrointestinal: Abdomen is soft and nontender Neurological: A&O, nonfocal exam Skin: Warm and dry Extremities: normal inspection, nontender Psychiatric: Mood and affect normal Constitutional: Initial Vital Signs Heart Rate 62 07/17/17 10:58 Respiratory Rate 18 07/17/17 10:58 Blood Pressure 107/66 07/17/17 10:58 O2 Sat (%) 91 L 07/17/17 10:58 O2 Delivery Mode Room Air Allergies/Adverse Reactions: amoxicillin trihydrate [From Augmentin] Allergy (Mild, Verified 03/26/17 13:32) Other-Enter Comments potassium clavulanate [From Augmentin] Allergy (Mild, Verified 03/26/17 13:32) Other-Enter Comments Home Medications: Medication Instructions Recorded FLUoxetine [Prozac 20 MG (*)] 60 mg TUBE DAILY 11/30/11 Insulin Glargine,Hum.rec.anlog 8 unit SQ DAILY@199911/30/11 [Lantus] amLODIPine BESYLATE [Norvasc 5 mg 5 mg TUBE BID 11/30/11 (*)] busPIRone [Buspar (*)] 5 mg TUBE BID 11/30/11 metFORMIN HCL [Glucophage 500 mg 500 mg TUBE DAILY 11/30/11 (*)] Albuterol Sulfate [Albuterol 1 - 2 puffs IH Q4H PRN 04/27/14 Inhaler Hfa] Albuterol [Proventil Neb] 3 ml IH TID 04/27/14 Fluticasone Hfa 44 Mcg [Flovent 44 2 puffs IH HS 04/27/14 MCG Hfa MDI (*)] Pantoprazole Sodium [Protonix 40mg 40 mg TUBE BIDMEAL 04/27/14 (*)] Calcium Carbonate [Tums 500MG (*)] 500 mg TUBE HS 07/03/15 INSULIN REGULAR, HUMAN [Novolin R] 2 - 6 unit SQ DAILY PRN 07/03/15 Polyethylene Glycol 3350 [Miralax 17 gm TUBE DAILY 07/03/15 17 gm (*)] Hydrocodone/Acetaminophen [[place] 0.5 each TUBE HS 09/29/15 5/325 (*)] Losartan Potassium [Cozaar 50 mg 50 mg TUBE BID 09/29/15 (*)] Metoclopramide [Reglan 5 mg (*)] 5 mg TUBE DAILY PRN 12/27/15 Nystatin [Mycostatin Oral Liquid 5 ml PO BID 12/27/15 (*)] guaiFENesin/DEXTROMETHORPHAN 10 ml PO Q4HRS PRN #0 ml 12/31/15 [Robitussin Dm Oral Liquid (*)] Acetaminophen [Tylenol 325mg (*)] 650 mg TUBE Q4 PRN 05/26/16 Ferrous Sulfate [Ferrous Sulf 325 325 mg TUBE DAILY@05/26/16 MG (*)] Ascorbic Acid [Vitamin C 500 mg 1,000 mg TUBE DAILY@07/17/17 (*)] Medical Decision Making ED Course/Re-evaluation: This patient presents with a significant posterior nose bleed. Upon pt arrival , the ED RN needed to continuously suction blood from the patient's mouth. No blood initially coming from the nose. During my examination, she began having a moderate amount of bleeding from the left nares and mouth. A long posterior nasal packing was placed, soaked in TXA, and inflated with air. This packing stopped the bleeding. d/w Dr. Mcgovern, advises to inflate the balloon with more air after approx 10 minutes. 2ml additional air placed. No further bleeding while in the ED. This patient will require observation in the hospital because of significant posterior epistaxis and advanced age. At high risk for aspiration. Initial hematocrit is normal and blood pressure has been adequate after epistaxis control. The hospitalist service was consulted for admission. Differential Diagnosis: Differential diagnosis includes does not limited to anterior epistaxis, hypertension, severe anemia, coagulopathy. - Data Points Laboratory Results: Laboratory Results 07/17/17 10:51 07/17/17 11:20 Medications Given: Hydrocodone Bitart/Acetaminophen ([place] 5/325) 0.5 tab TUBE HS [place]O Stop: 07/27/17 20:59 Last Admin: 07/17/17 21:08 Dose: 0.5 tab Albuterol (Proventil Neb) 3 ml IH TID [place] Stop: 01/13/18 15:59 Last Admin: 07/17/17 22:18 Dose: 3 ml Amlodipine Besylate (Norvasc) 5 mg TUBE BID [place] Stop: 01/13/18 20:59 Last Admin: 07/18/17 08:43 Dose: 5 mg Amoxicillin (Amoxil 250mg/5ml) 500 mg TUBE Q8 [place] PRN Reason: Protocol Stop: 08/16/17 17:29 Last Admin: 07/18/17 05:55 Dose: 10 ml Buspirone HCl (Buspar) 5 mg TUBE BID [place] Stop: 01/13/18 20:59 Last Admin: 07/18/17 08:44 Dose: 5 mg Famotidine (Pepcid) 20 mg TUBE BID G[place] Stop: 01/13/18 20:59 Last Admin: 07/18/17 08:44 Dose: 20 mg Fluoxetine HCl (Prozac) 60 mg TUBE DAILY [place] Stop: 01/14/18 08:59 Last Admin: 07/18/17 08:43 Dose: 60 mg Fluticasone Propionate (Flovent Hfa) 2 puffs IH HS [place] Stop: 01/13/18 20:59 Last Admin: 07/17/17 22:19 Dose: 2 puffs Insulin Glargine (Lantus Syringe) 8 units SC DAILY@1999 [facility] Stop: 01/13/18 19:59 Last Admin: 07/17/17 20:55 Dose: 8 units Insulin Human Lispro (Humalog Lispro) 0 unit SC ACHS GUANAK[place]O PRN Reason: Protocol Stop: 01/13/18 17:29 Last Admin: 07/18/17 08:43 Dose: 1 unit Losartan Potassium (Cozaar) 50 mg TUBE BID G[place] Stop: 01/13/18 20:59 Last Admin: 07/18/17 08:44 Dose: 50 mg Metformin HCl (Glucophage) 500 mg TUBE DAILY [place] Stop: 01/14/18 08:59 Last Admin: 07/18/17 08:43 Dose: 500 mg Nystatin (Mycostatin Oral Liquid) 200,000 unit PO BID G[place] PRN Reason: Protocol Stop: 08/16/17 20:59 Last Admin: 07/18/17 08:42 Dose: 200,000 unit Ondansetron HCl (Zofran) 4 mg IVP Q4HRS PRN PRN Reason: Nausea/Vomiting, Can't Take PO Stop: 01/13/18 13:03 Last Admin: 07/17/17 14:23 Dose: 4 mg Polyethylene Glycol (Miralax) 17 gm TUBE DAILY [facility] Stop: 01/14/18 08:59 Last Admin: 07/18/17 08:42 Dose: 17 gm Discontinued Medications Tranexamic Acid (Cyklokapron) 500 mg TP EDNOW ONE Stop: 07/17/17 10:55 Last Admin: 07/17/17 11:16 Dose: 500 mg Departure - Departure Disposition: [facility] Inpatient Acute Clinical Impression: Posterior epistaxis Condition: Fair
[2017-07-17 11:36] LABS: INR 0.99 (0.83-1.16); PROTIME(PATIENT) 13.3 SEC (12.0-15.0)
[2017-07-17] MEDS ORDERED: ACETAMINOPHEN 325 MG TAB PO PRN (13:04)
[2017-07-17] MEDS ORDERED: ONDANSETRON DISINTEGRATING 4 MG TAB PO PRN (13:04)
[2017-07-17] MEDS: ONDANSETRON 4 MG/2 ML VIAL IVP PRN (14:23)
[2017-07-17] MEDS ORDERED: METOCLOPRAMIDE 5 MG TAB TUBE PRN (14:48)
[2017-07-17] MEDS ORDERED: ACETAMINOPHEN 325 MG TAB TUBE PRN (14:48)
[2017-07-17] MEDS ORDERED: D50W 25 GM/50 ML SYR IVP PRN (14:51)
--- NOTE | 2017-07-17 15:00 | PDGENHP ---
History and Physical - Chief Complaint nosebleed - History of Present Illness 87 yo female with h/o diabetes, hypertension and aspiration with G tube presents to ED with marked epistaxis. This was thought to be posterior and she recent TXA soaked nasal packing. The bleeding seems to have stopped. ENT was consulted. She is admitted to the hospital for observation given severity of the bleed. She does not on anticoagulation and does not take any anti-platelet medications. No prior h/o epistaxis. She denies CP, SOB. She c/o difficulty breathing with b/l nasal packing and is on face mask with 5 LPM O2 currently. Denies blood in back of throat. History Information - Allergies/Home Medication List Allergies/Adverse Reactions: amoxicillin trihydrate [From Augmentin] Allergy (Mild, Verified 03/26/17 13:32) Other-Enter Comments potassium clavulanate [From Augmentin] Allergy (Mild, Verified 03/26/17 13:32) Other-Enter Comments Home Medications: FLUoxetine [Prozac 20 MG (*)] 60 mg TUBE DAILY 11/30/11 [Last Taken 07/16/17] Insulin Glargine,Hum.rec.anlog [Lantus] 8 unit SQ DAILY@199911/30/11 [Last Taken 07/16/17] amLODIPine BESYLATE [Norvasc 5 mg (*)] 5 mg TUBE BID 11/30/11 [Last Taken 21:00] busPIRone [Buspar (*)] 5 mg TUBE BID 11/30/11 [Last Taken 07/16/17 21:00] metFORMIN HCL [Glucophage 500 mg (*)] 500 mg TUBE DAILY 11/30/11 [Last Taken ] Albuterol Sulfate [Albuterol Inhaler Hfa] 1 - 2 puffs IH Q4H PRN 04/27/14 [Last Taken 05/25/16] Albuterol [Proventil Neb] 3 ml IH TID 04/27/14 [Last Taken 07/16/17] Fluticasone Hfa 44 Mcg [Flovent 44 MCG Hfa MDI (*)] 2 puffs IH HS 04/27/14 [ Last Taken 07/16/17] Pantoprazole Sodium [Protonix 40mg (*)] 40 mg TUBE BIDMEAL 04/27/14 [Last Taken 07/16/17 18:00] Calcium Carbonate [Tums 500MG (*)] 500 mg TUBE HS 07/03/15 [Last Taken 07/16/17] INSULIN REGULAR, HUMAN [Novolin R] 2 - 6 unit SQ DAILY PRN 07/03/15 [Last Taken 12/27/15 06:30] Polyethylene Glycol 3350 [Miralax 17 gm (*)] 17 gm TUBE DAILY 07/03/15 [Last Taken 07/16/17] Hydrocodone/Acetaminophen [[place] 5/325 (*)] 0.5 each TUBE HS 09/29/15 [Last Taken 07/16/17] Losartan Potassium [Cozaar 50 mg (*)] 50 mg TUBE BID 09/29/15 [Last Taken 21:00] Metoclopramide [Reglan 5 mg (*)] 5 mg TUBE DAILY PRN 12/27/15 [Last Taken ] Nystatin [Mycostatin Oral Liquid (*)] 5 ml PO BID 12/27/15 [Last Taken 07/16/17 21:00] Acetaminophen [Tylenol 325mg (*)] 650 mg TUBE Q4 PRN 05/26/16 [Last Taken Unknown] Ferrous Sulfate [Ferrous Sulf 325 MG (*)] 325 mg TUBE DAILY@11 05/26/16 [Last Taken 07/16/17] Ascorbic Acid [Vitamin C 500 mg (*)] 1,000 mg TUBE DAILY@11 07/17/17 [Last Taken 07/16/17] I have personally reviewed and updated: family history, medical history, social history, surgical history - Past Medical History diabetes type 2, GERD, hypertension Additional medical history: H/O aspiration pneumonia. G tube on tube feeds. GERD - Surgical History Additional surgical history: Peg tube placement - Family History Positive for: non-pertinent - Social History Smoking Status: Never smoked Alcohol Use: None Drug Use: None Additional social history: Lives at home with son Review of Systems Review of Systems: ROS: 10pt was reviewed & negative except for what was stated in HPI & below Physical Exam Physical Exam: Temp Pulse Resp BP Pulse Ox 36.4 C 56 L 16 102/55 L 96 07/17/17 14:10 07/17/17 14:10 07/17/17 14:10 07/17/17 14:10 07/17/17 14:10 O2 (L/minute) 4 Constitutional: no apparent distress Eyes: PERRL Ears, Nose, Mouth, Throat: other (b/l nasal packing in place) Cardiovascular: regular rate and rhythym, systolic murmur Respiratory: no respiratory distress, clear to auscultation Gastrointestinal: normoactive bowel sounds, soft, non-tender abdomen, other (g tube present) Skin: warm Musculoskeletal: full muscle strength Neurologic: AAOx3 Psychiatric: interacting appropriately Lab Data & Imaging Review 07/17/17 16:30 07/17/17 11:20 WBC 9.01 10^3/uL (3.80-9.50) 07/17/17 10:51 RBC 4.59 10^6/uL (4.18-5.33) 07/17/17 10:51 Hgb 14.3 g/dL (12.6-16.3) 07/17/17 10:51 POC Hgb 15.0 gm/dL (12.6-16.3) 07/17/17 10:56 Hct 43.8 % (38.0-47.0) 07/17/17 10:51 POC Hct 44 % (38-47) 07/17/17 10:56 MCV 95.4 fL (81.5-99.8) 07/17/17 10:51 MCH 31.2 pg (27.9-34.1) 07/17/17 10:51 MCHC 32.6 g/dL (32.4-36.7) 07/17/17 10:51 RDW 15.6 % (11.5-15.2) H 07/17/17 10:51 Plt Count 243 10^3/uL (150-400) 07/17/17 10:51 MPV 11.9 fL (8.7-11.7) H 07/17/17 10:51 Neut % (Auto) 74.7 % (39.3-74.2) H 07/17/17 10:51 Lymph % (Auto) 20.3 % (15.0-45.0) 07/17/17 10:51 [place] % (Auto) 4.4 % (4.5-13.0) L 07/17/17 10:51 Eos % (Auto) 0.1 % (0.6-7.6) L 07/17/17 10:51 Baso % (Auto) 0.1 % (0.3-1.7) L 07/17/17 10:51 Nucleat RBC Rel Count 0.0 % (0.0-0.2) 07/17/17 10:51 Absolute Neuts (auto) 6.72 10^3/uL (1.70-6.50) H 07/17/17 10:51 Absolute Lymphs (auto) 1.83 10^3/uL (1.00-3.00) 07/17/17 10:51 Absolute Monos (auto) 0.40 10^3/uL (0.30-0.80) 07/17/17 10:51 Absolute Eos (auto) 0.01 10^3/uL (0.03-0.40) L 07/17/17 10:51 Absolute Basos (auto) 0.01 10^3/uL (0.02-0.10) L 07/17/17 10:51 Absolute Nucleated RBC 0.00 10^3/uL (0-0.01) 07/17/17 10:51 Immature Gran % 0.4 % (0.0-1.1) 07/17/17 10:51 Immature Gran # 0.04 10^3/uL (0.00-0.10) 07/17/17 10:51 PT 13.3 SEC (12.0-15.0) 07/17/17 11:20 INR 0.99 (0.83-1.16) 07/17/17 11:20 APTT 30.0 SEC (23.0-38.0) 07/17/17 11:20 Turbidity REJ 07/17/17 10:51 POC Sodium 139 mEq/L (135-145) 07/17/17 10:56 Sodium 137 mEq/L (135-145) 07/17/17 11:20 POC Potassium 4.8 mEq/L (3.3-5.0) 07/17/17 10:56 Potassium 4.8 mEq/L (3.5-5.2) 07/17/17 11:20 POC Chloride 102 mEq/L (97-110) 07/17/17 10:56 Chloride 105 mEq/L (97-110) 04/20/18 11:20 Carbon Dioxide 24 mEq/l (22-31) 07/17/17 11:20 Anion Gap 8 mEq/L (8-16) 07/17/17 11:20 POC BUN 35 mg/dL (7-23) H 07/17/17 10:56 BUN 29 mg/dL (7-23) H 07/17/17 11:20 Creatinine 0.6 mg/dL (0.6-1.0) 07/17/17 11:20 POC Creatinine 0.7 mg/dL (0.6-1.0) 07/17/17 10:56 Estimated GFR > 60 07/17/17 11:20 Glucose 238 mg/dL (70-100) H 07/17/17 11:20 POC Glucose 209 mg/dL (70-100) H 07/17/17 10:56 Calcium 9.2 mg/dL (8.5-10.4) 07/17/17 11:20 Specimen Hemolysis REJ 07/17/17 10:51 Patient ABO/Rh AB NEGATIVE 07/17/17 10:51 Antibody Screen POSITIVE 07/17/17 10:51 Antibody Identification Anti-K 07/17/17 10:51 Red Cell Ag Pheno DNA K Antigen - NEGATIVE 07/17/17 10:51 Assessment & Plan Assessment: Epistaxis - s/p TXA and b/l nasal packing. Will trend h&h as sounds like she had significant blood loss. Requiring O2 with nasal packing in place. Cont supportive care, wean O2 as able. Discussed with Dr. Mcgovern, ENT. He recommends leaving packing in place for 3-4 days and f/u with him in clinic on Mon or Thu. Also recommends Amoxicillin due to theoretical risk of toxic shock. Acknowledge allergy, though not a true allergy (notes it "doesn't work") . DM type 2 - cont MTF, lantus / SSI Hypertension - fair control, cont outpt meds Dysphagia with h/o aspiration PNA - NPO with G tube, cont home tube feeds with free water flushes Full code DVT PPLX - SCD's, defer pharm with bleeding event Dispo - obs
[2017-07-17] MEDS: INSULIN LISPRO 100 UNIT/ML SC SCH ×2 (16:24→20:55)
[2017-07-17] MEDS: ALBUTEROL 3 ML DEYVIAL IH SCH ×2 (16:57→22:18)
[2017-07-17] MEDS: AMOXICILLIN SUSP 250 MG/5 ML BTL TUBE SCH ×2 (18:14→21:19)
[2017-07-17] MEDS: INSULIN GLARGINE 100 UNITS/ML UNIT SC SCH (20:55)
[2017-07-17] MEDS: FAMOTIDINE 20 MG TAB TUBE SCH (21:08)
[2017-07-17] MEDS: HYDROCODONE/APAP 5/325 TAB TUBE SCH (21:08)
[2017-07-17] MEDS: LOSARTAN POTASSIUM 50 MG TAB TUBE SCH (21:09)
[2017-07-17] MEDS: amLODIPine BESYLATE 5 MG TAB TUBE SCH (21:09)
[2017-07-17] MEDS: busPIRone 5 MG TAB TUBE SCH (21:10)
[2017-07-17] MEDS: NYSTATIN SUSP 500000 UNIT/5 ML UDCUP PO SCH (21:14)
[2017-07-17] MEDS: FLUTICASONE HFA 44 MCG MDI IH SCH ×2 (21:15→22:19)
[2017-07-18] MEDS: AMOXICILLIN SUSP 250 MG/5 ML BTL TUBE SCH ×3 (05:55→20:58)
[2017-07-18] MEDS: NYSTATIN SUSP 500000 UNIT/5 ML UDCUP PO SCH ×2 (08:42→20:53)
[2017-07-18] MEDS: POLYETHYLENE GLYCOL 3350 17 GM PKT TUBE SCH (08:42)
[2017-07-18] MEDS: metFORMIN HCL 500 MG TAB TUBE SCH (08:43)
[2017-07-18] MEDS: INSULIN LISPRO 100 UNIT/ML SC SCH ×4 (08:43→20:54)
[2017-07-18] MEDS: FLUoxetine 20 MG CAP TUBE SCH (08:43)
[2017-07-18] MEDS: amLODIPine BESYLATE 5 MG TAB TUBE SCH ×2 (08:43→20:52)
[2017-07-18] MEDS: FAMOTIDINE 20 MG TAB TUBE SCH ×2 (08:44→20:50)
[2017-07-18] MEDS: busPIRone 5 MG TAB TUBE SCH ×2 (08:44→20:52)
[2017-07-18] MEDS: LOSARTAN POTASSIUM 50 MG TAB TUBE SCH ×2 (08:44→20:51)
[2017-07-18] MEDS: ALBUTEROL 3 ML DEYVIAL IH SCH ×3 (10:43→21:48)
[2017-07-18] MEDS ORDERED: ACETAMINOPHEN 325 MG TAB TUBE PRN (11:46)
--- NOTE | 2017-07-18 15:09 | ASMTCMCOM ---
CM Note CM Note Notes: Pt. is an 87-year-old woman admitted for a severe nosebleed. Hx. diabetes, HTN, aspiration PNA, and GERD. Pt. appears to have both Medicare and Medicaid. Lives w/ her son. PT recommending Home w/ 24 hour supervision vs HC vs H. OT recommending Home with 24 hour supervision. CM to follow for d/c POC. Date Signed: 07/18/2017 03:08 PM Electronically Signed By:Joy Chavez LCSW
--- NOTE | 2017-07-18 15:38 | HOSPPROG ---
Hospitalist Progress Note Assessment/Plan: Subjective Follow-up on epistaxis No recurrent epistaxis overnight packing is in place. Reviewed her case with her nursing today. No acute events overnight. It sounds like she has been eating and drinking reasonably well. Objective Vital signs as detailed below Physical exam General-patient appears comfortable sitting in a chair at the bedside no acute distress Heart-regular rate and rhythm no murmurs noted. Lungs-clear on auscultation with normal respiratory effort Abdomen-soft nontender nondistended normal bowel sounds Genitourinary-no Garcia catheter in place Extremities-no significant edema H EENT-nasal packing in place no significant bleeding noted externally Labs as detailed below Assessment plan 1. Epistaxis-this appears to have stabilized with the packing. Her protime and PTT upon admission were within normal limits. She does not take any antiplatelet agents or anticoagulation. I wonder about the possibility of SSRI induced platelet dysfunction. She does take 60 mg of Prozac I would recommend that we try using a lower dose for now and potentially wean down the dose further. It would be better to do this slowly to avoid any withdrawal symptoms. 2. Chronic hypoxic respiratory failure-patient is on oxygen continuously at home however with the nasal packing we are unable to use nasal cannula. She currently has a massive delivers her oxygen she seems to be doing reasonably well on her home oxygen amount at 2 L. 3. Uremia this may be related to swallowing of blood with the epistaxis. Will follow 4. Hypertension-stable continue with current amlodipine and losartan. 5. Diabetes mellitus type 2-continue with current Lantus insulin and sliding scale. 6. Dysphagia-history of aspiration patient has G-tube in place. 7. Depression and anxiety-continue current therapy although will trial a lower dose of Prozac. 8. DVT prophylaxis compression devices and mobilization. No heparin or Lovenox in light of bleeding. 9. Disposition-continue work with PT and OT and anticipate returning back to assisted living in the next 1-2 days if clinically stable. Objective: Vital Signs Temp Pulse Resp BP Pulse Ox 36.8 C 72 14 166/71 H 96 07/18/17 11:17 07/18/17 15:24 07/18/17 15:24 07/18/17 11:17 07/18/17 15:24 Laboratory Results 07/17/17 16:30 07/18/17 04:30 07/17/17 07/18/1707/19/18 05:59 05:59 05:59 Intake Total 800 960 Balance 800 960 PT 13.3 SEC (12.0-15.0) 07/17/17 11:20 INR 0.99 (0.83-1.16) 07/17/17 11:20 ICD10 Worksheet Patient Problems: Problems Problem Status Onset Posterior epistaxis Acute Aspiration pneumonia Acute Fever Acute Generalized weakness Acute Hx: recurrent pneumonia Acute Hypoxia Acute Palliative care encounter Acute Periorbital hematoma Acute Pneumonia Acute Pneumonia Acute
--- NOTE | 2017-07-18 16:09 | PDMN ---
Medical Necessity Medical necessity: C/M review: est. > 2 MN LOS for eval and TX of acute epistaxis requiring nasal packing in ED, chronic hypoxic respiratory failure on O2 2L/min continuously at home - eut to nasal packing, patient unable to use nasal cannula uremia requiring ongoing Proventil nebs, nasal packing monitoring , pulse oximetry, O2 via oxymask, acute inpt PT/OT, comorbid hypertension, type 2 diabetes, dysphagia with history of aspiration, patient has G-tube in place - present on admission, depression, and anxiety per 07/18/2017 Hospitalist progress note.
[2017-07-18] MEDS: HYDROCODONE/APAP 5/325 TAB TUBE SCH (20:51)
[2017-07-18] MEDS: INSULIN GLARGINE 100 UNITS/ML UNIT SC SCH ×2 (20:58→21:27)
[2017-07-18] MEDS: FLUTICASONE HFA 44 MCG MDI IH SCH (21:48)
[2017-07-19 04:53] LABS: PLATELET COUNT 210 10^3/uL (150-400)
[2017-07-19] MEDS: AMOXICILLIN SUSP 250 MG/5 ML BTL TUBE SCH ×3 (05:44→20:53)
[2017-07-19] MEDS: POLYETHYLENE GLYCOL 3350 17 GM PKT TUBE SCH (08:16)
[2017-07-19] MEDS: metFORMIN HCL 500 MG TAB TUBE SCH (08:18)
[2017-07-19] MEDS: amLODIPine BESYLATE 5 MG TAB TUBE SCH ×2 (08:19→20:50)
[2017-07-19] MEDS: FLUoxetine 20 MG CAP TUBE SCH (08:19)
[2017-07-19] MEDS: busPIRone 5 MG TAB TUBE SCH ×2 (08:19→20:51)
[2017-07-19] MEDS: LOSARTAN POTASSIUM 50 MG TAB TUBE SCH ×2 (08:19→20:50)
[2017-07-19] MEDS: NYSTATIN SUSP 500000 UNIT/5 ML UDCUP PO SCH ×2 (08:20→20:54)
[2017-07-19] MEDS: INSULIN LISPRO 100 UNIT/ML SC SCH ×4 (08:20→21:11)
[2017-07-19] MEDS: FAMOTIDINE 20 MG TAB TUBE SCH ×2 (08:20→20:50)
[2017-07-19] MEDS: ALBUTEROL 3 ML DEYVIAL IH SCH ×3 (10:04→20:25)
[2017-07-19] MEDS: ONDANSETRON 4 MG/2 ML VIAL IVP PRN (11:30)
--- NOTE | 2017-07-19 14:40 | HOSPPROG ---
Hospitalist Progress Note Assessment/Plan: Subjective Follow-up on epistaxis No additional bleeding overnight. I reviewed her status with her son Jose Carlos. Also reviewed the case with Dr. Mcgovern as well. Our current plan is for discharge tomorrow with outpatient follow-up with Dr. Mcgovern for removal of her nasal packing. The patient's son Jose Carlos has concerns about the nose rebleeding. I attempted to explain to him that the clinical trials specialist will have specialized stools in the office to assess her sinuses and determine if there is a source of bleeding that needs to be addressed. He seemed to be understanding and agreeable to the plan for discharge tomorrow. I did review with nursing the white blood cell count increased overnight from 11/29/2013. Jose Carlos was also updated on this issue. We will continue with the current amoxicillin and reassess tomorrow. Objective Vital signs as detailed below Physical exam General-patient appears comfortable sitting in bed. No acute distress. Heart-regular rate and rhythm no murmurs are appreciated. Lungs-mildly coarse anteriorly with auscultation but otherwise normal respiratory effort clear on auscultation. Abdomen-soft nontender nondistended normal bowel sounds -no Garcia catheter in place Extremities-no significant edema H EENT-nasal packing in place with a small amount of clotted blood in the left knee air. Labs as detailed below Assessment and plan 1. Epistaxis-this appears to have stabilized with the packing. The patient's son Jose Carlos did state today that he had started her on aspirin daily about 2 weeks ago. He had received conflicting information about the use of aspirin and was most recently recommended to not use aspirin. He however felt that she should probably be on aspirin and did start. We discussed that I would recommend holding aspirin indefinitely for now considering the epistaxis severity. He was agreeable to this recommendation. 2. Chronic hypoxic respiratory failure-patient is on home oxygen continuously at home. We are using a mask as unable to deliver via nasal cannula at this time. 3. Hypertension-controlled. Continue current amlodipine losartan. 4. Diabetes mellitus type 2-Lantus increased to 10 units daily as she rod with running slightly high. The intensity of the sliding scale was also increased from a low intensity to regular intensity. 5. Dysphagia-patient has a history of aspiration has a J-tube in place. She is NPO 6. Depression and anxiety-continue current BuSpar and Prozac 7. DVT prophylaxis-continue compression devices. No heparin or Lovenox in light of bleeding. 8. Disposition-continue work with PT and OT plan is for discharge home with patient's son tomorrow. He is active in her care. 40 min of time dedicated to patient's care today over 50% of which was dedicated to counseling and coordination of care and discussions with the patient's son and power of energy attorney chain as well as with Dr. Shubham Mcgovern with Otolaryngology. Objective: Vital Signs Temp Pulse Resp BP Pulse Ox 37.1 C 84 18 140/64 H 90 L 07/19/17 11:08 07/19/17 11:08 07/19/17 11:08 07/19/17 11:08 07/19/17 11:08 Laboratory Results 07/19/17 04:15 07/18/17 04:30 07/18/17 07/19/17 07/20/17 05:59 05:59 05:59 Intake Total 800 1500 Balance 800 1500 PT 13.3 SEC (12.0-15.0) 07/17/17 11:20 INR 0.99 (0.83-1.16) 07/17/17 11:20 ICD10 Worksheet Patient Problems: Problems Problem Status Onset Posterior epistaxis Acute Aspiration pneumonia Acute Fever Acute Generalized weakness Acute Hx: recurrent pneumonia Acute Hypoxia Acute Palliative care encounter Acute Periorbital hematoma Acute Pneumonia Acute Pneumonia Acute
[2017-07-19] MEDS: FLUTICASONE HFA 44 MCG MDI IH SCH (20:29)
[2017-07-19] MEDS: INSULIN GLARGINE 100 UNITS/ML UNIT SC SCH (20:48)
[2017-07-19] MEDS: HYDROCODONE/APAP 5/325 TAB TUBE SCH (20:50)
[2017-07-20 05:07] LABS: PLATELET COUNT 185 10^3/uL (150-400)
[2017-07-20] MEDS: AMOXICILLIN SUSP 250 MG/5 ML BTL TUBE SCH ×2 (06:24→12:16)
[2017-07-20 08:10] VITALS: BP 149/71
[2017-07-20] MEDS: metFORMIN HCL 500 MG TAB TUBE SCH (08:27)
[2017-07-20] MEDS: busPIRone 5 MG TAB TUBE SCH (08:28)
[2017-07-20] MEDS: amLODIPine BESYLATE 5 MG TAB TUBE SCH (08:28)
[2017-07-20] MEDS: LOSARTAN POTASSIUM 50 MG TAB TUBE SCH (08:28)
[2017-07-20] MEDS: NYSTATIN SUSP 500000 UNIT/5 ML UDCUP PO SCH (08:29)
[2017-07-20] MEDS: FAMOTIDINE 20 MG TAB TUBE SCH (08:29)
[2017-07-20] MEDS: INSULIN LISPRO 100 UNIT/ML SC SCH ×2 (08:30→12:18)
[2017-07-20] MEDS: POLYETHYLENE GLYCOL 3350 17 GM PKT TUBE SCH (08:30)
[2017-07-20] MEDS ORDERED: FLUoxetine 20 MG CAP TUBE SCH (09:00)
[2017-07-20] MEDS: ALBUTEROL 3 ML DEYVIAL IH SCH (10:00)
--- NOTE | 2017-07-20 13:19 | GDS ---
[f rep st] DISCHARGE SUMMARY IN-HOSPITAL CONSULTANTS: Dr. Shubham Mcgovern, Otolaryngology. DISCHARGE DIAGNOSIS: Epistaxis. HISTORY OF PRESENT ILLNESS: The patient is an 87-year-old female, with past medical history of diabe isra mellitus type 2 and dysphagia with current J-tube in place, who presented to the [facility] Emergency Room on 07/17/2017, after developing severe epistaxis. The patient was stabiliz ed in the emergency room with nasal packing. The case was discussed with Dr. Mcgovern with Otolaryngolo gy. I reviewed the case with Dr. Mcgovern over the phone yesterday as well, and we are planning for ou tpatient consultation for removal of the nasal packing tomorrow, July 21, at 2:45 p.m. in his offi ce. I reviewed the plan with the patient's son, who is her power of certified medical records coder and qa specialist. We will continue with amoxicillin on leaving the hospital for now. Patient does have a history of chronic h ypoxic respiratory failure, and we have provided a mask for her oxygen delivery. She will be unable to use her nasal cannula until her packing has been removed. In trying to discover an etiology of th e bleed, her son did state that he had started aspirin recently, and certainly this likely played a r ole. We did discuss the fact that she is on SSRI as well and that there can be some associated plate let dysfunction secondary to SSRI therapy. For now, I opted not to adjust the dosing, as I think the aspirin was more likely a player, but this could be considered in the future if she has recurrent ep istaxis. HOSPITAL COURSE BY PROBLEM: 1. Epistaxis. This has been stabilized with nasal packing. Patient will see Dr. Mcgovern in his offi ce tomorrow at 2:45, for removal of her nasal packing. I have advised that we stop aspirin indefinit lino for now. 2. Hypertension, controlled. No changes made during this hospitalization to her losartan and amlodi pine. 3. Diabetes mellitus, type 2, controlled during this hospitalization. No changes made to her outpat ient insulin dosing. 4. Dysphagia. Patient was continued on her schedule tube feedings which she tolerated fine during t his hospitalization. 5. Chronic hypoxic respiratory failure. Patient was stable on her 2 L of oxygen. A chest x-ray was obtained during this hospitalization to evaluate for any potential aspiration of blood products, but none was seen. The chest x-ray showed right basilar atelectasis. 6. Depression. Patient was continued on Prozac 60 mg daily. 7. Deep venous thrombosis prophylaxis. Compression devices used during this hospitalization. No he richar or Lovenox in light of bleeding. 8. Disposition. Patient appears stable for discharge home today to have followup tomorrow with Dr. Mcgovern at 2:45. EXAM: VITAL SIGNS: On day of discharge, temperature 37.7, blood pressure 149/71, heart rate 81, res pirations 18, saturating 92%, 2.5 L via face mask. GENERAL: Patient appears comfortable. She is si tting in a chair at the bedside, awake, responsive, alert, and conversant. No acute distress. HEART : Regular rate and rhythm. No murmurs. LUNGS: Clear on auscultation. Normal respiratory effort. ABDOMEN: Soft, nontender, nondistended. : No Garcia catheter in place. EXTREMITIES: No signifi cant pitting edema. MUSCULOSKELETAL: No calf pain with palpation. LABS: White blood cell count is 12, down from 14 yesterday, hemoglobin 10.7, platelets 185. Last 4 glucose checks are 215, 201, 210, and 235. IMAGING: Chest x-ray as detailed above. DISCHARGE MEDICATIONS: In short, no medication changes were made, other than the addition of amoxici llin. 1. Amoxicillin 500 mg per tube every 8 hours. 2. Metformin 500 mg daily. 3. Lantus insulin 10 units daily. 4. Prozac 60 mg daily. 5. BuSpar 5 mg twice a day. 6. Amlodipine 5 mg twice a day. 7. Protonix 40 mg twice a day. 8. Flovent 44 mcg 2 puffs at night. 9. Albuterol inhaler 3 times a day. 10. MiraLAX 17 g daily. 11. Regular insulin, sliding scale prior to meals. 12. Losartan 50 mg twice a day. 13. Hydrocodone/acetaminophen 5/325 half a tablet per tube nightly. 14. Nystatin 5 mL p.o. twice a day. 15. Reglan 5 mg per tube daily as needed. 16. Ferrous sulfate 325 mg per tube daily. DISCHARGE INSTRUCTIONS: Patient will have a followup visit with Dr. Mcgovern tomorrow at 2:45 for nasa l packing removal. I also recommend a followup visit with Dr. Smith in 1-2 weeks' time for reassessm ent. 40 minutes of time dedicated to discharge efforts. /[id number]/MODL
--- NOTE | 2017-07-20 14:14 | PDIAF ---
- Diagnosis Code Status: Full Code - Medication Management Discharge Medications: Medications to Continue on Transfer FLUoxetine [Prozac 20 MG (*)] 60 mg TUBE DAILY 11/30/11 [Last Taken 07/16/17] Insulin Glargine,Hum.rec.anlog [Lantus] 10 unit SQ DAILY@199911/30/11 [Last Taken 07/16/17] amLODIPine BESYLATE [Norvasc 5 mg (*)] 5 mg TUBE BID 11/30/11 [Last Taken 21:00] busPIRone [Buspar (*)] 5 mg TUBE BID 11/30/11 [Last Taken 07/16/17 21:00] metFORMIN HCL [Glucophage 500 mg (*)] 500 mg TUBE DAILY 11/30/11 [Last Taken ] Albuterol Sulfate [Albuterol Inhaler Hfa] 1 - 2 puffs IH Q4H PRN 04/27/14 [Last Taken 05/25/16] Albuterol [Proventil Neb] 3 ml IH TID 04/27/14 [Last Taken 07/16/17] Fluticasone Hfa 44 Mcg [Flovent 44 MCG Hfa MDI (*)] 2 puffs IH 04/27/14 [ Last Taken 07/16/17] Pantoprazole Sodium [Protonix 40mg (*)] 40 mg TUBE BIDMEAL 04/27/14 [Last Taken 07/16/17 18:00] Calcium Carbonate [Tums 500MG (*)] 500 mg TUBE 07/03/15 [Last Taken 07/16/17] INSULIN REGULAR, HUMAN [Novolin R] 2 - 6 unit SQ DAILY PRN 07/03/15 [Last Taken 12/27/15 06:30] Polyethylene Glycol 3350 [Miralax 17 gm (*)] 17 gm TUBE DAILY 07/03/15 [Last Taken 07/16/17] Hydrocodone/Acetaminophen [[place] 5/325 (*)] 0.5 each TUBE HS 09/29/15 [Last Taken 07/16/17] Losartan Potassium [Cozaar 50 mg (*)] 50 mg TUBE BID 09/29/15 [Last Taken 21:00] Metoclopramide [Reglan 5 mg (*)] 5 mg TUBE DAILY PRN 12/27/15 [Last Taken ] Nystatin [Mycostatin Oral Liquid (*)] 5 ml PO BID 12/27/15 [Last Taken 07/16/17 21:00] guaiFENesin/DEXTROMETHORPHAN [Robitussin Dm Oral Liquid (*)] 10 ml PO Q4HRS PRN #0 ml 12/31/15 [Last Taken 01/07/16 11:00] Acetaminophen [Tylenol 325mg (*)] 650 mg TUBE Q4 PRN 05/26/16 [Last Taken Unknown] Ferrous Sulfate [Ferrous Sulf 325 MG (*)] 325 mg TUBE DAILY@05/26/16 [Last Taken 07/16/17] Ascorbic Acid [Vitamin C 500 mg (*)] 1,000 mg TUBE DAILY@07/17/17 [Last Taken 07/16/17] Amoxicillin [Amoxil Susp (*)] 500 mg TUBE Q8 #210 btl 07/20/17 [Last Taken Unknown] Discharge Medications: Refer to the Discharge Home Medication list for PRN reason. - Orders Services needed: Registered Nurse, Physical Therapy Isolation Type: None Diet Texture: None (Patient NPO. Continue current tube feedings (no changes recommended to prior home regimen)) Tube feeding: Continue order as done prior to coming to hospital. - Follow Up Care Current Providers and Referrals: Ashley Smith MD [Primary Care Provider] - As per Instructions Shubham Mcgovern MD [Medical Doctor] - (Tomorrow, Thursday the at 2:45pm.)
--- NOTE | 2017-07-20 15:26 | ASDISCHSUM ---
Discharge Information Plan Status:Home with Home Health Medically Cleared to Leave:07/20/2017 Discharge Date:07/20/2017 03:00 PM CM D/C Disposition:Home, Routine, Self-Care ADT D/C Disposition:Home, Routine, Self-Care Projected Discharge Date:07/20/2017 11:00 AM Transportation at D/C:Family Discharge Delay Reason: Follow-Up Date:07/20/2017 11:00 AM Discharge Slot: Final Diagnosis: Placement Information Referral Type:*Home Health Care Services Referral ID:[id number] Provider Name:[facility] Address 1:[address] [address] Phone Number: Address 2: Fax Number: City:[place] Selection Factors: State:[place] Patient Contact Information Contact Name:KARLA Relationship:Son Address:KYLE[place] JARRETT (DAUGHTER) [address] City:[place] Alternate Phone: State/Zip Code:[place] [address] Email: Financial Information Financial Class:Medicare Primary Plan Desc:MEDICARE INPATIENT Primary Plan Number:[id number] Secondary Plan Desc:MED[place] Secondary Plan Number:[id number] Assessment Information [facility] CM Progress Note CM Note CM Note Notes: Pt. is an 87-year-old woman admitted for a severe nosebleed. Hx. diabetes, HTN, aspiration PNA, and GERD. Pt. appears to have both Medicare and Medicaid. Lives w/ her son. PT recommending Home w/ 24 hour supervision vs HC vs H. OT recommending Home with 24 hour supervision. CM to follow for d/c POC. Date Signed: 07/18/2017 03:08 PM Electronically Signed By:Joy Chavez LCSW Case Management Discharge Plan Note Case Management Discharge Discharge Order Complete? Answers: Yes Patient to Obtain Answers: via Family Medications Transportation Arranged Answers: Family/Friends EMTALA Complete Answers: No Case Management Transport Answers: No Form Complete Agency/Facility Transfer Answers: Yes Report Printed & Faxed to Receiving Agency Family Notified Answers: Yes Discharge Comments Notes: CM spoke w/ Dr. Woods and Lizette RN regarding d/c POC. Pt is being discharged today. CM is current w/ [facility]. CM spoke w/ son regarding d/c POC. DC orders sent to [facility]. CM available for changes. Plan: WALTER Iglesias and PT Date Signed: 07/20/2017 02:23 PM Electronically Signed By:DONNY Hudson Intervention Information Intervention Type:*IM-Signed Date of Service:07/20/2017 02:45 PM Patient Type:Inpatient Staff Member:DONNY Boogie Michelle Hours: Discipline: Severity: Comment:
== END 2017-07-20 15:00 | disposition home or self-care (01) | DRG 151 ==
LOC: EDUNIT# → OBSVTOIN 11:48 → F3E 13:40
PROVIDERS: ADMIT Hospitalist; ATTEND Internal Medicine
PROC: 2Y41X5Z Packing of Nasal Region using Packing Material (ICD-10-PCS; principal; 2017-07-17)
DX: R04.0 Epistaxis (principal); E11.9 Type 2 diabetes mellitus without complications; I10 Essential (primary) hypertension; R13.10 Dysphagia, unspecified; J96.11 Chronic respiratory failure with hypoxia; F41.8 Other specified anxiety disorders; Z87.01 Personal history of pneumonia (recurrent); Z99.81 Dependence on supplemental oxygen; Z79.4 Long term (current) use of insulin
CPT/HCPCS: 82947-QW; 97162-GP; 97165-GO; 97530-GO; 97530-GP; G0378; G8978-GP-CK; G8979-GP-CJ; G8987-GO-CL; G8988-GO-CK; J1815; J2405; J7613

== ENCOUNTER 2017-07-21 14:05 | Inpatient (IN) | payer OTHER, MEDICAID ==
[2017-07-21] MEDS ORDERED: NS 1,000 ML IV ONE (14:15)
--- NOTE | 2017-07-21 14:23 | EDPHY ---
H & P Time Seen by Provider: 07/21/17 14:11 HPI/ROS: Chief complaint. Fever, trouble breathing HPI. 87-year-old female discharged from the hospital yesterday after being admitted on July 17 for epistaxis. Started run a fever this morning. Fever greater than 101 degrees per her son. Difficulty breathing. She is normally on oxygen at home E turned up to 5 L and was able to get up to about 90%. She arrives with O2 saturation of 80% on room air. Son gave her Tylenol. He notes she has been coughing. Decreased mental status. She was hard to arouse earlier. No vomiting or diarrhea. Still has the rhino rocket for her epistaxis in place. ROS Constitutional. Fever and weakness Eyes. no problems with vision ENT. no sore throat, no nasal drainage Cardiovascular. no chest pain Respiratory. Cough and shortness of breath Abdominal. no abdominal pain, no nausea/vomiting, no diarrhea . no problems urinating MS. no calf pain/swelling, no neck/back pain, no joint pain Skin. no rash Lymph. no swollen glands Neuro. Decreased responsiveness. Can't walk. Past Medical/Surgical History: Past medical history diabetes, hypertension, aspiration pneumonia, G-tube, epistaxis Social History: , lives with her son, nonsmoker, no alcohol Smoking Status: Never smoked Physical Exam: General Appearance: Arousable the slow to respond female moderate to severe distress vital signs show O2 saturation 80% on room air. Temperature is not yet been taken Eyes: Pupils equal and round no pallor or injection. ENT, Mouth: Mucous membranes are moist. Respiratory: No retractions but tachypnea. Inspiratory expiratory rhonchi Cardiovascular: Regular rate and rhythm. Gastrointestinal: Abdomen is soft and nontender, no masses, bowel sounds normal. Neurological: Awake and alert, sensory and motor exams grossly normal. Skin: Warm and dry, no rashes. Musculoskeletal: Neck is supple nontender. Extremities symmetrical, full range of motion. Psychiatric: Patient does not speak, there is no agitation. Constitutional: Initial Vital Signs Heart Rate 80 07/21/17 14:05 Respiratory Rate 40 H 07/21/17 14:05 Blood Pressure 104/63 07/21/17 14:05 O2 Sat (%) 80 L 07/21/17 14:05 O2 Delivery Mode Bi-Pap O2 (L/minute) 15 Allergies/Adverse Reactions: amoxicillin trihydrate [From Augmentin] Allergy (Mild, Verified 03/26/17 13:32) Other-Enter Comments potassium clavulanate [From Augmentin] Allergy (Mild, Verified 03/26/17 13:32) Other-Enter Comments Home Medications: Medication Instructions Recorded FLUoxetine [Prozac 20 MG (*)] 60 mg TUBE DAILY 11/30/11 Insulin Glargine,Hum.rec.anlog 10 unit SQ DAILY@199911/30/11 [Lantus] amLODIPine BESYLATE [Norvasc 5 mg 5 mg TUBE BID 11/30/11 (*)] busPIRone [Buspar (*)] 5 mg TUBE BID 11/30/11 metFORMIN HCL [Glucophage 500 mg 500 mg TUBE DAILY 11/30/11 (*)] Albuterol Sulfate [Albuterol 1 - 2 puffs IH Q4H PRN 04/27/14 Inhaler Hfa] Albuterol [Proventil Neb] 3 ml IH TID 04/27/14 Fluticasone Hfa 44 Mcg [Flovent 44 2 puffs IH 04/27/14 MCG Hfa MDI (*)] Pantoprazole Sodium [Protonix 40mg 40 mg TUBE BIDMEAL 04/27/14 (*)] Calcium Carbonate [Tums 500MG (*)] 500 mg TUBE HS 07/03/15 INSULIN REGULAR, HUMAN [Novolin R] 2 - 6 unit SQ DAILY PRN 07/03/15 Polyethylene Glycol 3350 [Miralax 17 gm TUBE DAILY 07/03/15 17 gm (*)] Hydrocodone/Acetaminophen [[place] 0.5 each TUBE HS 09/29/15 5/325 (*)] Losartan Potassium [Cozaar 50 mg 50 mg TUBE BID 09/29/15 (*)] Metoclopramide [Reglan 5 mg (*)] 5 mg TUBE DAILY PRN 12/27/15 Nystatin [Mycostatin Oral Liquid 5 ml PO BID 12/27/15 (*)] guaiFENesin/DEXTROMETHORPHAN 10 ml PO Q4HRS PRN #0 ml 12/31/15 [Robitussin Dm Oral Liquid (*)] Acetaminophen [Tylenol 325mg (*)] 650 mg TUBE Q4 PRN 05/26/16 Ferrous Sulfate [Ferrous Sulf 325 325 mg TUBE DAILY@05/26/16 MG (*)] Ascorbic Acid [Vitamin C 500 mg 1,000 mg TUBE DAILY@07/17/17 (*)] Amoxicillin [Amoxil Susp (*)] 500 mg TUBE Q8 #210 btl 07/20/17 Medical Decision Making - Diagnostics Imaging Results: Imaging Impressions Chest X-Ray 07/21/17 14:15 Impression: 1. New multifocal airspace consolidation involving the right base and left upper lobe. Bronchopneumonia versus aspiration. 2. Small right pleural effusion. E:amm Chest x-ray interpreted by me shows bilateral pneumonia. Procedures: IV normal saline, oxygen, monitor Sepsis workup BiPAP per Respiratory therapy Intravenous clindamycin and Levaquin. Patient is stabilizing and maintaining oxygen saturation on the BiPAP. She is more awake and alert. The patient, her son and I discussed imaging and lab results. We discussed treatment plan including recommendation for admission. They expressed understanding and agreement ED Course/Re-evaluation: Serial evaluations and patient is now on BiPAP . O2 saturation around 90%. Severe sepsis declared now. IV fluids 30 milliliters/kilogram are ordered. DuoNeb updraft is ordered in addition to the BiPAP. This may be aspiration pneumonia so patient is given clindamycin and Levaquin. She is penicillin allergic. I consulted discussed the case with Dr. Hernández, hospitalist who agrees to the admission 2:50 p.m. pulse ox 94% on her BiPAP. Differential Diagnosis: This may be bloody in the patient's lung or it may be aspiration pneumonia. She has had epistaxis 2 days ago still has the rhino rocket in place. She has acute respiratory failure and evidence of pneumonia. She has an elevated lactate indicating severe sepsis. Critical Care Time: Critical care time exclusive procedures 40 min - Data Points Laboratory Results: Laboratory Results 07/21/17 14:21 07/21/17 14:21 07/21/17 07/21/17 07/21/17 14:41 14:21 14:21 WBC RBC Hgb Hct MCV MCH MCHC RDW Plt Count MPV Neut % (Auto) Lymph % (Auto) Mcleod % (Auto) Eos % (Auto) Baso % (Auto) Nucleat RBC Rel Count Absolute Neuts (auto) Absolute Lymphs (auto) Absolute Monos (auto) Absolute Eos (auto) Absolute Basos (auto) Absolute Nucleated RBC Immature Gran % Immature Gran # PT 14.8 SEC SEC REJ (12.0-15.0) INR 1.14 REJ (0.83-1.16) APTT 30.0 SEC SEC REJ (23.0-38.0) VBG Lactic Acid Sodium 139 mEq/L mEq/L (135-145) Potassium 5.1 mEq/L mEq/L (3.5-5.2) Chloride 99 mEq/L mEq/L (97-110) Carbon Dioxide 32 mEq/l H mEq/l (22-31) Anion Gap 8 mEq/L mEq/L (8-16) BUN 28 mg/dL H mg/dL (7-23) Creatinine 0.4 mg/dL L mg/dL (0.6-1.0) Estimated GFR > 60 Glucose 256 mg/dL H mg/dL (70-100) Calcium 9.3 mg/dL mg/dL (8.5-10.4) Total Bilirubin 0.7 mg/dL mg/dL (0.1-1.4) Troponin I 0.025 ng/mL ng/mL (0.000-0.034) NT-Pro-B Natriuret Pep 1260 pg/mL H pg/mL (0-450) 07/21/17 07/21/17 14:21 14:21 WBC 8.97 10^3/uL 10^3/uL (3.80-9.50) RBC 3.96 10^6/uL L 10^6/uL (4.18-5.33) Hgb 12.1 g/dL L g/dL (12.6-16.3) Hct 37.8 % L % (38.0-47.0) MCV 95.5 fL fL (81.5-99.8) MCH 30.6 pg pg (27.9-34.1) MCHC 32.0 g/dL L g/dL (32.4-36.7) RDW 15.5 % H % (11.5-15.2) Plt Count 229 10^3/uL 10^3/uL (150-400) MPV 12.2 fL H fL (8.7-11.7) Neut % (Auto) 94.1 % H % (39.3-74.2) Lymph % (Auto) 4.1 % L % (15.0-45.0) Mcleod % (Auto) 1.3 % L % (4.5-13.0) Eos % (Auto) 0.0 % L % (0.6-7.6) Baso % (Auto) 0.3 % % (0.3-1.7) Nucleat RBC Rel Count 0.0 % % (0.0-0.2) Absolute Neuts (auto) 8.43 10^3/uL H 10^3/uL (1.70-6.50) Absolute Lymphs (auto) 0.37 10^3/uL L 10^3/uL (1.00-3.00) Absolute Monos (auto) 0.12 10^3/uL L 10^3/uL (0.30-0.80) Absolute Eos (auto) 0.00 10^3/uL L 10^3/uL (0.03-0.40) Absolute Basos (auto) 0.03 10^3/uL 10^3/uL (0.02-0.10) Absolute Nucleated RBC 0.00 10^3/uL 10^3/uL (0-0.01) Immature Gran % 0.2 % % (0.0-1.1) Immature Gran # 0.02 10^3/uL 10^3/uL (0.00-0.10) PT INR APTT VBG Lactic Acid 3.2 mmol/L H mmol/L (0.7-2.1) Sodium Potassium Chloride Carbon Dioxide Anion Gap BUN Creatinine Estimated GFR Glucose Calcium Total Bilirubin Troponin I NT-Pro-B Natriuret Pep Medications Given: Piperacillin/Tazobactam/Dextrose (Zosyn 3.375 Gm (Premix)) 50 mls @ 100 mls/hr IV Q6HRS GUANAKITO PRN Reason: Protocol Stop: 08/20/17 17:59 Last Admin: 07/21/17 18:08 Dose: 50 mls Insulin Human Regular (Humulin R) 2 - 10 unit SC ACHS GUANAKITO PRN Reason: Protocol Stop: 01/17/18 17:29 Last Admin: 07/21/17 18:08 Dose: 2 units Discontinued Medications Albuterol/Ipratropium (Duoneb) 3 ml IH EDNOW ONE Stop: 07/21/17 14:46 Last Admin: 07/21/17 16:32 Dose: Not Given Sodium Chloride (Ns) 1,000 mls @ 0 mls/hr IV EDNOW ONE; Wide Open PRN Reason: Protocol Stop: 07/21/17 14:16 Last Admin: 07/21/17 14:23 Dose: 1,000 mls Clindamycin 300 mg/ Sodium (Chloride) 102 mls @ 204 mls/hr IV EDNOW ONE PRN Reason: Protocol Stop: 07/21/17 15:14 Last Admin: 07/21/17 17:29 Dose: 102 mls Levofloxacin/Dextrose (Levaquin 750 Mg (Premix)) 150 mls @ 100 mls/hr IV EDNOW ONE PRN Reason: Protocol Stop: 07/21/17 16:13 Last Admin: 07/21/17 14:58 Dose: 150 mls Sodium Chloride (Ns) 1,800 mls @ 3,600 mls/hr 30 ml/kg infuse over 30 min ( 1800 ml) IV EDNOW ONE PRN Reason: Protocol Stop: 07/21/17 15:13 Last Admin: 07/21/17 14:52 Dose: 1,800 mls Sodium Chloride (Ns) 1,000 mls @ 200 mls/hr IV CONT GUANAKITO Stop: 07/21/17 20:59 Last Admin: 07/21/17 16:25 Dose: 1,000 mls Lorazepam (Ativan Injection) 0.25 mg IVP ONCE ONE Stop: 07/21/17 16:01 Last Admin: 07/21/17 17:29 Dose: 0.25 mg Departure - Departure Disposition: [facility] In[facility] Acute Clinical Impression: Aspiration pneumonia Qualifiers: Aspiration pneumonia type: unspecified Laterality: bilateral Lung location: unspecified part of lung Qualified Code(s): J69.0 - Pneumonitis due to inhalation of food and vomit Condition: Fair
[2017-07-21 14:31] LABS: PLATELET COUNT 229 10^3/uL (150-400)
--- NOTE | 2017-07-21 14:35 | CPEKG ---
Heart Rate: 92 RR Interval: 652 P-R Interval: 188 QRSD Interval: 82 QT Interval: 388 QTC Interval: 481 P [place]: -75 QRS [place]: -30 T Wave [place]: 48 EKG Severity - ABNORMAL ECG - EKG Impression: SINUS OR ECTOPIC ATRIAL RHYTHM EKG Impression: ATRIAL PREMATURE COMPLEX EKG Impression: PROBABLE INFERIOR INFARCT, AGE INDETERMINATE EKG Impression: CONSIDER ANTERIOR INFARCT EKG Impression: LATERAL LEADS ARE ALSO INVOLVED Electronically Signed By: Shubham Garcia 21-Jul-2017 16:30:37
[2017-07-21] MEDS ORDERED: NS 1,800 ML IV ONE (14:44)
[2017-07-21] MEDS ORDERED: IPRATROPIUM/ALBUTEROL 3 ML DEYVIAL IH ONE (14:45)
[2017-07-21] MEDS ORDERED: CLINDAMYCIN 300 MG in NS 100 ML IV ONE (14:45)
[2017-07-21 15:03] LABS: INR 1.14 (0.83-1.16); PROTIME(PATIENT) 14.8 SEC (12.0-15.0)
[2017-07-21] MEDS ORDERED: LORazepam 2 MG/ML INJ IVP ONE (16:00)
[2017-07-21] MEDS ORDERED: ONDANSETRON DISINTEGRATING 4 MG TAB PO PRN (16:00)
[2017-07-21] MEDS ORDERED: NS 1,000 ML IV SCH (16:00)
[2017-07-21] MEDS ORDERED: ACETAMINOPHEN 325 MG TAB PO PRN (16:00)
[2017-07-21] MEDS ORDERED: ONDANSETRON 4 MG/2 ML VIAL IVP PRN (16:00)
[2017-07-21] MEDS ORDERED: METOCLOPRAMIDE 5 MG TAB TUBE PRN (16:03)
[2017-07-21] MEDS ORDERED: INSULIN REGULAR HUMAN SQ PRN (16:03)
[2017-07-21] MEDS ORDERED: GUAIFENESIN/DM 10 ML UDCUP PO PRN (16:03)
[2017-07-21] MEDS ORDERED: ALTEPLASE 2 MG VIAL IVP PRN (16:15)
--- NOTE | 2017-07-21 16:46 | GHP ---
[f rep st] HISTORY AND PHYSICAL DATE OF ADMISSION: 07/21/2017 The patient is a pleasant 87-year-old female with recent admission for epistaxis. She also has chron ic hypoxemic respiratory failure and chronic aspiration, who presents with respiratory distress. She was due to go to the ENT clinic for packing removal today. She was discharged on that with amoxicil ger, but she became increasingly short of breath, presented to the emergency department today. Notab ly, she was 80% on room air on presentation. When I speak with her, she is anxious, wearing CPAP. She does answer that she would want a breathing machine, i.e. intubation, if it were necessary. She has had a cough. Her son suctions her at home and noted she has had some brown sputum in there. She does have a nasal packing on. She was febrile to 101 this morning with difficulty breathing. She turned up to 5 L and was only abo ut 90%. There has been coughing and somnolence. When I speak with the patient, she is alert, anxiou s, but obviously tachypneic, wearing a BiPAP machine. REVIEW OF SYSTEMS: Complete 10-point review of systems conducted and negative except as noted in the HPI. PAST MEDICAL HISTORY: 1. Recent admission for epistaxis. She is not on blood thinners. 2. Chronic hypoxemic respiratory failure. 3. Type 2 diabetes. 4. Reflux. 5. Hypertension. 6. History of aspiration pneumonia on a G-tube with tube feeds. She has a PEG tube placement. 7. Constipation. FAMILY HISTORY: Son is healthy, at the bedside. SOCIAL HISTORY: No tobacco, no alcohol. Lives with her son. ALLERGIES: None. Her son claims that Augmentin does not work for her. HOME MEDICATIONS: Acetaminophen, albuterol, amlodipine, amoxicillin, vitamin C, calcium carbonate, f errous sulfate, losartan, metformin, pantoprazole, albuterol, buspirone, fluoxetine, fluticasone (Tim vent), guaifenesin, dextromethorphan, hydrocodone, glargine, regular insulin sliding scale, metoclopr amide, nystatin, MiraLAX. PHYSICAL EXAMINATION: PRESENTING VITALS: 80% on room air, blood pressure 104/63, pulse 80, respirat ions 40, afebrile here at 37.2. GENERAL: Increased work of breathing. Anxious. HEENT: Sclerae an icteric. She has a nasal packing with crusted brown blood in her left naris. LUNGS: Crackles at th e bases bilaterally with tachypnea. Good air movement. HEART: S1, S2. Borderline tachycardic. AB DOMEN: Soft, nontender, nondistended. LOWER EXTREMITIES: Without edema. Calves are nontender. SK IN: Without rash. NEUROLOGIC: Nonfocal. LABORATORY DATA: White count 9, hematocrit 38, platelets are 229,000. INR is 1.1. Venous lactate i s 3.2, has risen to 3.7. Sodium is 139, potassium 5.1, chloride 99, bicarb 32, BUN 20, creatinine 0. 4, glucose 256. Troponin 0.025. BNP is 1260 which is a high value for her. Urinalysis is unremarka ble. Chest x-ray interpreted by me shows bilateral airspace disease consistent with aspiration pneumonia. It is predominantly in the lower lobes. EKG interpreted by me shows sinus at 92 with left axis deviation, normal intervals, no ST or T-wave c hanges. I discussed the case with Dr. Shubham Garcia. ASSESSMENT AND PLAN: An 87-year-old female with acute on chronic hypoxemic respiratory failure, bila teral pneumonia, and sepsis. 1. Sepsis. The patient has sepsis as evidenced by a source of infection, leukocytosis, elevated lac lloyd that has failed to clear. Will continue volume resuscitation. Repeat her venous lactate here i n a couple hours. 2. Aspiration pneumonia. This is likely blood aspiration. However, it needs to be treated with ant ibiotics. She has received levofloxacin and clindamycin in the emergency department. I will give he r Zosyn. 3. Hypoxemic respiratory failure. The patient is currently working pretty hard to breathe, but her oxygen saturations are improving on bilevel and she is tachypneic. I will give her 0.25 mg for Ativa n. I think anxiety is driving her. Will try to wean her off the bilevel when she gets to the ____. Will continue her inhaled Flovent. I have written her for some albuterol nebs as needed. 4. Nosebleed. The packing is due to come out today. ENT has been called and will take it out once she arrives. 5. Elevated BNP/volume status. I suspect the patient is actually probably euvolemic, but with sepsi s, she will continue fluid resuscitation. Her elevated BNP may be from right heart strain from her p neumonia. Will follow. 6. Indeterminate troponin. Will follow this every 6, given her risk. 7. Code status. She confirms full code. 8. Access. I will order a peripherally inserted central catheter line. 9. Disposition. Intensive Care Unit risk high. 10. Prophylaxis. Patient is at risk for venous thromboembolism for sure. However, given her nose b leed which is problematic enough to create a need for intubation, will hold pharmacologic deep vein t hrombosis prophylaxis. 40 minutes critical care time spent. /[id number]/MODL
[2017-07-21] MEDS ORDERED: D50W 25 GM/50 ML SYR IVP PRN (17:08)
[2017-07-21] MEDS: INSULIN REGULAR, HUMAN 100 UNIT/1 ML VIAL STANDARD SC SCH ×2 (18:08→23:36)
[2017-07-21] MEDS: PIPERACILLIN/TAZO 3.375 GM/DEX 50 ML IV SCH ×2 (18:08→23:50)
[2017-07-21] MEDS: SODIUM CL NASAL 45 ML BTL EACHNARE SCH (21:54)
[2017-07-21] MEDS: NYSTATIN SUSP 500000 UNIT/5 ML UDCUP PO SCH ×2 (21:54→23:56)
[2017-07-21] MEDS: busPIRone 5 MG TAB TUBE SCH (21:55)
[2017-07-21] MEDS: OXYMETAZOLINE 30 ML NASAL SPRAY EACHNARE SCH (21:56)
[2017-07-21] MEDS: INSULIN GLARGINE 100 UNITS/ML SYRINGE SC SCH (21:56)
[2017-07-21] MEDS: ALBUTEROL 3 ML DEYVIAL IH SCH (22:19)
[2017-07-21] MEDS: FLUTICASONE HFA 44 MCG MDI IH SCH (22:20)
[2017-07-21] MEDS: HYDROCODONE/APAP 5/325 TAB TUBE SCH (22:35)
[2017-07-22] MEDS ORDERED: LORazepam 2 MG/ML INJ IVP ONE (00:14)
[2017-07-22] MEDS ORDERED: fentaNYL 100 MCG/2 ML INJ IVP PRN (03:29)
[2017-07-22] MEDS ORDERED: fentaNYL/NACL 100 ML IV SCH (03:34)
[2017-07-22] MEDS ORDERED: ROCURONIUM 100 MG/10 ML VIAL ONE (03:49)
[2017-07-22] MEDS ORDERED: ETOMIDATE 40 MG/20 ML INJ ONE (03:49)
--- NOTE | 2017-07-22 03:49 | HOSPPROG ---
Hospitalist Progress Note Assessment/Plan: XC: Patient w/ increasing hypoxia and tachypnea throughout the night. On evaluation I suspect progression of aspiration pneumonia with patient having difficulty maintaining current work of breathing. Patient maintains full code status, will have ED physician intubate. Objective: Vital Signs Temp Pulse Resp BP Pulse Ox 38.0 C 94 37 H 129/59 H 94 07/22/17 02:00 07/22/17 02:00 07/22/17 02:00 07/22/17 02:00 07/22/17 02:00 07/20/17 07/21/17 07/22/17 05:59 05:59 05:59 Intake Total 2224 Output Total 200 Balance 2023 PT 14.8 SEC (12.0-15.0) 07/21/17 14:41 INR 1.14 (0.83-1.16) 07/21/17 14:41 ICD10 Worksheet Patient Problems: Problems Problem Status Onset Aspiration pneumonia Acute Fever Acute Generalized weakness Acute Hx: recurrent pneumonia Acute Hypoxia Acute Palliative care encounter Acute Periorbital hematoma Acute Pneumonia Acute Pneumonia Acute Posterior epistaxis Acute
--- NOTE | 2017-07-22 03:50 | EDPHY ---
Inpatient Procedure Narrative: I was requested to go to the ICU for the patient respiratory distress requiring intubation. On arrival found the patient minimally responsive being bag-valve ventilated. Patient was unable to give verbal consent but had indicated earlier today that should her breathing worsen she would wish to be placed on a ventilator. Passive oxygen was applied with a nasal cannula. Patient continued to be bagged valve mask. She was sedated with etomidate 20 mg. She was then paralyzed with rocuronium, 80 mg IV. Patient was intubated with a 7.5 cuffed endotracheal tube via direct visualization with laryngoscopy. I per visualize the tube passing through the vocal cords. It was placed at 22 cm at the gum. The balloon was inflated. There was good colorimic color change on the end-tidal device. The patient excellent breath sounds on bilateral lungs with bag-valve ventilation. There are no sounds in the epigastrium. Oxygen saturations can with a 97%. Post intubation chest x-ray showed a well placed endotracheal tube. There were no complications. Procedure was done by me.
[2017-07-22 04:12] LABS: PLATELET COUNT 178 10^3/uL (150-400)
[2017-07-22] MEDS: PROPOFOL/EMULSION 100 ML IV SCH ×2 (04:20→19:19)
--- NOTE | 2017-07-22 04:53 | GCON ---
[f rep st] CONSULTATION ENT CONSULTATION. CHIEF COMPLAINT: Nasal packing. HISTORY OF PRESENT ILLNESS: 87-year-old female who was packed 2 days ago for uncontrolled epistaxis from the left. She uses nasal cannula oxygen. She was admitted here for respiratory failure. She w as scheduled to have her nasal packing removed today in office, but instead reported to the ER with r espiratory difficulty. She is only somewhat responsive being on CPAP, so history was provided by the chart and family who were present in her room. She has not had significant history of epistaxis, bu t has had a couple of bleeds recently. REVIEW OF SYSTEMS: Review of systems negative but for that which is in the HPI. PAST MEDICAL HISTORY: 1. Epistaxis. 2. Respiratory failure. 3. Type 2 diabetes. 4. Reflux. 5. Hypertension. 6. History of aspiration pneumonia. 7. Constipation. FAMILY HISTORY: Noncontributory. SOCIAL HISTORY: Noncontributory. ALLERGIES: NKDA. HOME MEDICATIONS: Reviewed. PHYSICAL EXAMINATION: VITAL SIGNS: Blood pressure 149/69, heart rate 94, respiratory rate 34, O2 sa turation 94% on BiPAP at 60% FiO2, temperature is 37.3. GENERAL: Alert, interactive, moderate distr ess. HEAD AND FACE: Atraumatic, normocephalic, generally symmetric. BiPAP mask in place. EARS: H earing aid at the right, unremarkable pinna and canals. No otorrhea. NOSE: Left Rapid Rhino nasal packing in place with mild dry bloody crusting. After spraying the left nasal cavity with Afrin nasa l spray for decongestion and hemostasis, the balloon packing was deflated and removed. Anterior rhin oscopy showed left septal deviation with mild bloody crusting. No active bleeding. Some excoriation on the deviated portion of the nasal septum. Oral cavity exam deferred. NECK: Supple without palp able adenopathy. ASSESSMENT: 87-year-old female with recent epistaxis. Nasal packing removed today without evidence of bleeding. PLAN: Recommend t.i.d. nasal saline sprays and b.i.d. Afrin sprays. Afrin can be stopped after 2 da ys. Would recommend using the nasal saline sprays in perpetuity. Further, when she goes back on her nasal cannula oxygen, I would recommend they use a small amount of Vaseline 1-2 times daily to the n gilda septum. Follow up with me in the office for continued issues with nasal bleeding. Recommend ho me humidification in addition to humidification to her nasal cannula oxygen. Please call if you have any questions or problems. My cell phone number is [phone]. /[id number]/MODL
[2017-07-22] MEDS ORDERED: ROCURONIUM 100 MG/10 ML VIAL IV ONE (05:00)
[2017-07-22] MEDS ORDERED: ETOMIDATE 20 MG/10 ML VIAL IV ONE (05:00)
[2017-07-22] MEDS: PIPERACILLIN/TAZO 3.375 GM/DEX 50 ML IV SCH ×3 (05:44→17:11)
[2017-07-22] MEDS ORDERED: ETOMIDATE 40 MG/20 ML INJ IV ONE (05:45)
--- NOTE | 2017-07-22 07:28 | HOSPPROG ---
Hospitalist Progress Note Assessment/Plan: DIAGNOSES: -acute hypoxemic resp failure requiring mechanical ventilation, intubation -acute severe aspiration pneumonitis, a recurrent syndrome for her with hx of chronic aspiration on PEG feedings chronically -acute sepsis -epistaxis with recent admission for that, required repacking of nose at this admission -acute blood loss anemia due to above -chronic hypoxemic resp failure -DM type 2 it is noted in the history and physical that the patient has an indeterminate troponin but on my review of her blood tests all of her troponins here were normal at this time; I do not see any indication that there is a acute cardiac abnormality occurring Seen by me on hospitalist rounds as well as multidisciplinary rounds today I reviewed in detail with Dr. Lee Patterson PLANS: -continue ventilatory support and respiratory care -sedation as needed with holidays -continue empiric antibiotics following cultures -follow closely for any further epistaxis, will repeat blood counts tomorrow -follow sugars closely and manage as indicated SUBJECTIVE: Patient sedated on ventilator so the symptom assessment available OBJECTIVE Vitals reviewed: Currently stable vitals without fever Protection Agent, my review: Sinus Exam: Sedated on ventilator skin warm dry color ok resps per ventilator lungs very diminished breath sounds with some rales heart regular abd soft nondistended nontender, bowel sounds present limbs warm, no edema iv site ok Laboratory data: More anemic today, white blood cell count normal Sugars in reasonable range so far stable renal function Objective: Vital Signs Temp Pulse Resp BP Pulse Ox 38.7 C H 73 20 145/57 H 95 07/22/17 06:00 07/22/17 06:00 07/22/17 06:00 07/22/17 06:00 07/22/17 06:00 Laboratory Results 07/22/17 04:03 07/22/17 04:03 07/21/17 07/22/17 07/23/17 06:59 06:59 06:59 Intake Total 3823.4 Output Total 575 Balance 3248.4 PT 14.8 SEC (12.0-15.0) 07/21/17 14:41 INR 1.14 (0.83-1.16) 07/21/17 14:41 - Time Spent With Patient Time Spent with Patient: greater than 35 minutes Time Spent with Patient: Greater than 35 minutes spent on this patients care, greater than 50% of time spent counseling, educating, and coordinating care regarding the above mentioned plan. ICD10 Worksheet Patient Problems: Problems Problem Status Onset Aspiration pneumonia Acute Fever Acute Generalized weakness Acute Hx: recurrent pneumonia Acute Hypoxia Acute Palliative care encounter Acute Periorbital hematoma Acute Pneumonia Acute Pneumonia Acute Posterior epistaxis Acute
[2017-07-22] MEDS ORDERED: ACETAMINOPHEN 650 MG/20.3 ML UDCUP PO PRN (08:10)
[2017-07-22] MEDS: INSULIN REGULAR, HUMAN 100 UNIT/1 ML VIAL STANDARD SC SCH ×4 (08:42→21:34)
[2017-07-22] MEDS: CHLORHEXIDINE GLUCONATE 15 ML UDL PO SCH ×2 (08:42→20:32)
[2017-07-22] MEDS: FAMOTIDINE 20 MG/NACL 50 ML IV SCH ×2 (08:43→20:32)
[2017-07-22] MEDS: NYSTATIN SUSP 500000 UNIT/5 ML UDCUP PO SCH ×2 (08:44→20:32)
[2017-07-22] MEDS: busPIRone 5 MG TAB TUBE SCH ×2 (08:45→20:34)
[2017-07-22] MEDS: FLUoxetine 20 MG CAP TUBE SCH (08:45)
[2017-07-22] MEDS: POLYETHYLENE GLYCOL 3350 17 GM PKT TUBE SCH (08:45)
[2017-07-22] MEDS: OXYMETAZOLINE 30 ML NASAL SPRAY EACHNARE SCH ×2 (08:46→21:36)
[2017-07-22] MEDS: SODIUM CL NASAL 45 ML BTL EACHNARE SCH ×3 (08:46→23:17)
[2017-07-22] MEDS: ALBUTEROL 3 ML DEYVIAL IH SCH (09:29)
--- NOTE | 2017-07-22 11:02 | WOCRNPDOC ---
WOCRN Advanced Assessment Note - Skin Integrity Problem, Advanced Assess Sacrum Pressure Injury Dressing Type: Mepilex Border Carolyn Wound Tissue: Blanching, Erythema Site Measurement - Head-to-Toe Length X Width X Depth (cm): 2x2x0, 1x1x0 Pressure Injury Stage: Stage 1 Pressure Injury Present on Admit: Yes Skin Integrity Problem Comment: Two small non blanching areas present. One on left sacrum and the other on the coccyx. Of note, patient has a congentital dimple in her skin over her coccyx area which is not a pressure related opening. Wound care will sign off. Discussed findings with family present in room. Glory Rn in room and Breana NAVARRO.
--- NOTE | 2017-07-22 13:46 | PDINTPN ---
Ip Counsel Progress Note Assessment/Plan: Assessment: Aspiration Pneumonia: Worsened overnight, now intubated. ? due to nasal bleeding vs. TF aspiration? Oxygenation OK, comfortable on vent. On Zosyn Diabetes: BSs a bit high. On SSI Elevated BNP. Plan: Check sputum Cs. Add Vanco. Wean ventilator as tolerated. Hold TF for now. Discussed with family. She's been progressively getting weaker at home, rarely does more that walk room to room, needs 2 people to get into a car. She's likely going to have worsened physical and mental functional capacity at discharge and will require an extended SNF stay. It's possible that she won't be able to get back to her current living situation with her son. More discussions as her hospitalization progresses. 07/22/17 15:02 Subjective: Intubated, sedated. Objective: Vital Signs Temp Pulse Resp BP Pulse Ox 38.5 C H 79 20 105/53 L 100 07/22/17 12:00 07/22/17 12:00 07/22/17 12:00 07/22/17 12:00 07/22/17 12:00 Laboratory Results 07/22/17 04:03 07/22/17 04:03 07/21/17 07/22/17 07/23/17 05:59 05:59 05:59 Intake Total 3823.4 Output Total 575 Balance 3248.4 PT 14.8 SEC (12.0-15.0) 07/21/17 14:41 INR 1.14 (0.83-1.16) 07/21/17 14:41 CXR: RLL and MARGOTH infiltrates persist. Images reviewed by me. Laboratory Tests 07/21/17 07/22/17 20:25 04:10 pCO2 40 H pO2 83 H Total CO2 24 ABG pH 7.38 ABG PO2/FiO2 Ratio 104 VBG Lactic Acid 2.3 H D O2 Concentration % 80 Actual Respiration Rate 24 SIMV YES Tidal Volume 460 PEEP 5 Pressure Support 7 Physical Exam - Physical Exam General Appearance: no apparent distress, No alert EENT: normal ENT inspection Neck: normal inspection Respiratory: lungs clear, normal breath sounds Cardiac/Chest: regular rate, rhythm, No edema Abdomen: normal bowel sounds, non-tender, other (PEG tube) Skin: normal color, warm/dry Extremities: normal inspection Neuro/Psych: No alert ICD10 Worksheet Patient Problems: Problems Problem Status Onset Aspiration pneumonia Acute Fever Acute Generalized weakness Acute Hx: recurrent pneumonia Acute Hypoxia Acute Palliative care encounter Acute Periorbital hematoma Acute Pneumonia Acute Pneumonia Acute Posterior epistaxis Acute
--- NOTE | 2017-07-22 14:00 | GCON ---
[f rep st] CONSULTATION PULMONARY/CRITICAL CARE CONSULTATION DATE OF CONSULTATION: 07/21/2017 REFERRING PHYSICIAN: Jonny Hernández MD REASON FOR REFERRAL: Evaluation and management of respiratory failure and probable aspiration pneumo donny. HISTORY: The patient is an 87-year-old woman who was just discharged from the hospital after being a dmitted for epistaxis. She has a history of chronic aspiration. She went home, and shortly after ge tting home, had increased respiratory distress. She presented to the emergency department, where she was found to be hypoxemic, with oxygen saturations of 80% on room air. She was placed on BiPAP and has been more comfortable. PAST MEDICAL HISTORY: Diabetes, hypertension, history of aspiration pneumonia with a G-tube in place , history of reflux. MEDICATIONS: At the time of admission include albuterol, amlodipine, amoxicillin, vitamin C, iron, l osartan, metformin, pantoprazole, albuterol, buspirone, fluoxetine, Flovent, guaifenesin, dextrometho rphan, hydrocodone, insulin, metoclopramide, nystatin, and MiraLAX. ALLERGIES: None. SOCIAL HISTORY: The patient does not drink or smoke. She lives with her son. FAMILY HISTORY: Unremarkable. REVIEW OF SYSTEMS: A 10-point review of systems is difficult to obtain due to the patient being on B iPAP and somewhat sedated and hard of hearing. PHYSICAL EXAMINATION: VITAL SIGNS: The patient is hypertensive, with a blood pressure of 153/98. H eart rate 97. She is afebrile. Oxygen saturations are 92% on BiPAP, with 60% oxygen. HEENT: Normo cephalic and atraumatic. She has a left nasal packing in place. No icterus. NECK: No JVD. Trache a is midline. CHEST: Basilar rales bilaterally. CARDIAC: Regular rate and rhythm, without murmur. ABDOMEN: Soft, nontender. Bowel sounds are present. EXTREMITIES: No clubbing, cyanosis, or edilia a. NEURO: The patient is somewhat sedated. She is moving all extremities, but not reliably to comm and. LABORATORY DATA: Hemoglobin is 12.1. White blood count is 9.0. Chemistry group is remarkable for a carbon dioxide level of 32, with an anion gap of 8. BUN is 28, with a creatinine of 0.4, glucose 25 6. A BNP is 1260. A lactate level is 3.7. Chest x-ray shows right basilar infiltrate with a small effusion. Images reviewed by me. ASSESSMENT: 1. Acute hypoxemic respiratory failure. This is likely due to aspiration. The patient has a prior history of aspiration despite placement of a PEG tube with tube feedings. She is currently fairly st able, with good gas exchange on BiPAP. She appears fairly comfortable. 2. Sepsis. The patient presented with hypoxemia and an elevated lactate, suggesting aspiration pneu monia. Her vital signs are otherwise stable, and she has no other signs of organ dysfunction. She h as been started empirically on Zosyn. 3. Aspiration. This could be due to blood from her nasal packing or aspirated tube feeds. RECOMMENDATIONS: 1. Will check a blood gas. 2. Continue BiPAP. 3. ENT to evaluate timing of nasal packing removal. /[id number]/MODL
--- NOTE | 2017-07-22 14:21 | ASMTCASEMG ---
Living Arrangements What is your living Answers: With Child(chris) arrangement? Who do you live with? Type Of Residence What kind of residence do Answers: House you live in? Discharge Plan Comments Coordination Status Comments Notes: Patient is an 87yo female who was admitted for sepsis, aspiration pneumonia, hypoxic respiratory failure, elevated BNP. Patient has a hx of chronic hypoxic respiratory failure, type 2 diabetes, reflux and hypertension. OT and wound care ordered. Patient does live in her own home with her son. D/C plan TBD. CM will follow. Date Signed: 07/22/2017 02:20 PM Electronically Signed By:Cathy Miranda LCSW
--- NOTE | 2017-07-22 15:51 | PDMN ---
Medical Necessity Medical necessity: est los>2mn for acute on chronic hypoxemic resp failure and sepsis r/t aspiration PNA, likely blood from recent epistaxis, elevated BNP and indeterminate troponin; admit for IVF, IV abx, and monitoring in ICU; comorbid DM, HTN, hx aspiration pna w/PEG tube in place; per order and H&P 07/21/17
[2017-07-22] MEDS: GUAIFENESIN/DM 10 ML UDCUP TUBE PRN (17:09)
[2017-07-22] MEDS: ACETAMINOPHEN 650 MG/20.3 ML UDCUP TUBE PRN (17:09)
[2017-07-22] MEDS: ALBUTEROL 60 PUFFS/8 GM MDI IH PRN (19:41)
[2017-07-22] MEDS: FLUTICASONE HFA 44 MCG MDI IH SCH (19:42)
[2017-07-22] MEDS: INSULIN GLARGINE 100 UNITS/ML SYRINGE SC SCH (20:33)
[2017-07-22] MEDS: HYDROCODONE/APAP 5/325 TAB TUBE SCH (20:34)
[2017-07-23] MEDS: PIPERACILLIN/TAZO 3.375 GM/DEX 50 ML IV SCH ×4 (00:01→18:13)
--- NOTE | 2017-07-23 03:51 | CPEKG ---
Heart Rate: 66 RR Interval: 909 QRSD Interval: 74 QT Interval: 396 QTC Interval: 415 QRS [place]: 102 T Wave [place]: -3 EKG Severity - ABNORMAL ECG - EKG Impression: ATRIAL FIBRILLATION EKG Impression: RIGHT AXIS DEVIATION EKG Impression: CONSIDER ANTERIOR INFARCT EKG Impression: BORDERLINE T ABNORMALITIES, INFERIOR LEADS EKG Impression: ATRIAL FIBRILLATION IS NEW IN COMPARISON TO PRIOR ECG Electronically Signed By: Karlo Trujillo 23-Jul-2017 22:59:05
[2017-07-23] MEDS: ALBUTEROL 60 PUFFS/8 GM MDI IH PRN ×6 (04:58→23:54)
--- NOTE | 2017-07-23 07:17 | HOSPPROG ---
Hospitalist Progress Note Assessment/Plan: XC: Notified of blood culture positive for MRSA. Noting patient persistently febrile will start Vancomycin IV. Objective: Vital Signs Temp Pulse Resp BP Pulse Ox 38.2 C 67 20 122/50 H 98 07/23/17 06:00 07/23/17 06:00 07/23/17 06:00 07/23/17 06:00 07/23/17 06:00 Microbiology 07/22/17 17:20 - Final Sputum, Induced/Suctioned Laboratory Results 07/22/17 04:03 07/22/17 04:03 07/22/17 07/23/17 07/24/17 05:59 05:59 05:59 Intake Total 3823.4 1433.2 Output Total 575 625 Balance 3248.4 808.2 PT 14.8 SEC (12.0-15.0) 07/21/17 14:41 INR 1.14 (0.83-1.16) 07/21/17 14:41 ICD10 Worksheet Patient Problems: Problems Problem Status Onset Aspiration pneumonia Acute Fever Acute Generalized weakness Acute Hx: recurrent pneumonia Acute Hypoxia Acute Palliative care encounter Acute Periorbital hematoma Acute Pneumonia Acute Pneumonia Acute Posterior epistaxis Acute
[2017-07-23] MEDS ORDERED: VANCOMYCIN 750 MG in D5W 150 ML IV SCH (08:00)
[2017-07-23] MEDS: INSULIN REGULAR, HUMAN 100 UNIT/1 ML VIAL STANDARD SC SCH ×4 (08:52→20:54)
[2017-07-23] MEDS: FAMOTIDINE 20 MG/NACL 50 ML IV SCH ×2 (08:58→20:53)
[2017-07-23] MEDS: POLYETHYLENE GLYCOL 3350 17 GM PKT TUBE SCH (09:00)
[2017-07-23] MEDS: CHLORHEXIDINE GLUCONATE 15 ML UDL PO SCH ×2 (09:00→20:54)
[2017-07-23] MEDS: FLUoxetine 20 MG CAP TUBE SCH (09:00)
[2017-07-23] MEDS: OXYMETAZOLINE 30 ML NASAL SPRAY EACHNARE SCH (09:00)
[2017-07-23] MEDS: busPIRone 5 MG TAB TUBE SCH ×2 (09:00→20:54)
[2017-07-23] MEDS: NYSTATIN SUSP 500000 UNIT/5 ML UDCUP PO SCH ×2 (09:00→20:54)
[2017-07-23] MEDS: SODIUM CL NASAL 45 ML BTL EACHNARE SCH ×3 (09:01→21:01)
[2017-07-23] MEDS: VANCOMYCIN 750 MG in NS 150 ML IV SCH (09:37)
[2017-07-23] MEDS ORDERED: FUROSEMIDE 40 MG/4 ML VIAL IVP ONE (11:46)
--- NOTE | 2017-07-23 11:46 | PDINTPN ---
[facility] Progress Note Assessment/Plan: Assessment: Aspiration Pneumonia: MRSA in blood. Intubated 4/25 AM. ? due to nasal bleeding vs. TF aspiration? Oxygenation OK, comfortable on vent. On Zosyn/Vanco Diabetes: BSs a bit high. On SSI Elevated BNP. Plan: Continue Zosyn/Vanco. Wean ventilator as tolerated, ? extubate tomorrow. Dose of Lasix OK to resume TF. Discussed with family. She's been progressively getting weaker at home, rarely does more that walk room to room, needs 2 people to get into a car. She's likely going to have worsened physical and mental functional capacity at discharge and will require an extended SNF stay. It's possible that she won't be able to get back to her current living situation with her son. More discussions as her hospitalization progresses. 07/23/17 11:47 Subjective: Intubated, sedated Objective: Vital Signs Temp Pulse Resp BP Pulse Ox 38.1 C 63 20 122/50 H 99 07/23/17 07:46 07/23/17 07:46 07/23/17 07:46 07/23/17 06:00 07/23/17 07:46 Microbiology 07/22/17 17:20 - Final Sputum, Induced/Suctioned 07/22/17 07/23/17 07/24/17 05:59 05:59 05:59 Intake Total 3823.4 1433.2 Output Total 575 625 Balance 3248.4 808.2 PT 14.8 SEC (12.0-15.0) 07/21/17 14:41 INR 1.14 (0.83-1.16) 07/21/17 14:41 Microbiology 07/21/17 14:21 Blood Blood Panel (PCR) - Final MRSA 07/21/17 14:21 Blood Blood Culture - Preliminary 07/21/17 14:21 Blood Gram Positive Cocci Clusters Physical Exam - Physical Exam General Appearance: alert, no apparent distress EENT: normal ENT inspection Neck: normal inspection Respiratory: lungs clear, normal breath sounds Cardiac/Chest: regular rate, rhythm, No edema Abdomen: normal bowel sounds, non-tender Skin: normal color, warm/dry Extremities: normal inspection Neuro/Psych: alert, normal mood/affect, oriented x 3 ICD10 Worksheet Patient Problems: Problems Problem Status Onset Aspiration pneumonia Acute Fever Acute Generalized weakness Acute Hx: recurrent pneumonia Acute Hypoxia Acute Palliative care encounter Acute Periorbital hematoma Acute Pneumonia Acute Pneumonia Acute Posterior epistaxis Acute
[2017-07-23 11:59] LABS: PLATELET COUNT 150 10^3/uL (150-400)
--- NOTE | 2017-07-23 15:31 | HOSPPROG ---
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 -acute sepsis -possible MRSA bacteremia with MRSA growing in a single blood culture set so far -epistaxis with recent admission for that, required repacking of nose at this admission -acute blood loss anemia due to above; * anemia worse today uncertain of the cause of this worsening -chronic hypoxemic resp failure -DM type 2 * Sugars remain in very good shape at this time it is noted in the history and physical that the patient has an indeterminate troponin but on my review of her blood tests all of her troponins here were normal at this time; I do not see any indication that there is a acute cardiac abnormality occurring Seen by me on hospitalist rounds as well as multidisciplinary rounds today I reviewed in detail with Dr. Lee Patterson PLANS: -recheck her hemoglobin this afternoon and again in the morning, if persistent drop may need to have ENT reassess her for possible nasal bleeding, search for other sources -continue ventilatory support and respiratory care -sedation as needed with holidays -continue empiric antibiotics including vancomycin for MRSA, following cultures -follow closely for any further epistaxis -follow sugars closely and manage as indicated SUBJECTIVE: Patient sedated on ventilator so the symptom assessment available OBJECTIVE Vitals reviewed: Currently stable vitals without fever Patient Case Manager, my review: Sinus Exam: Sedated on ventilator Have not found signs of any bleeding assessing her at this time though assessing for possible posterior nasal bleeding somewhat difficult skin warm dry color ok resps per ventilator lungs very diminished breath sounds with some rales heart regular abd soft nondistended nontender, bowel sounds present limbs warm, no edema iv site ok Laboratory data: More anemic today, with hemoglobin down to 7.8, white blood cell count normal Sugars in reasonable range so far stable renal function, potassium low today at 3.0 Microbiology: Now with MRSA in blood cultures from at least 1 set Objective: Vital Signs Temp Pulse Resp BP Pulse Ox 38 C 62 20 134/47 H 99 07/23/17 12:00 07/23/17 13:00 07/23/17 13:00 07/23/17 13:00 07/23/17 13:00 Microbiology 07/22/17 17:20 - Final Sputum, Induced/Suctioned Laboratory Results 07/23/17 11:32 07/23/17 11:32 07/22/17 07/23/17 07/24/17 06:59 06:59 06:59 Intake Total 3823.4 1433.2 Output Total 575 625 Balance 3248.4 808.2 PT 14.8 SEC (12.0-15.0) 07/21/17 14:41 INR 1.14 (0.83-1.16) 07/21/17 14:41 - Time Spent With Patient Time Spent with Patient: greater than 35 minutes Time Spent with Patient: Greater than 35 minutes spent on this patients care, greater than 50% of time spent counseling, educating, and coordinating care regarding the above mentioned plan. ICD10 Worksheet Patient Problems: Problems Problem Status Onset Aspiration pneumonia Acute Fever Acute Generalized weakness Acute Hx: recurrent pneumonia Acute Hypoxia Acute Palliative care encounter Acute Periorbital hematoma Acute Pneumonia Acute Pneumonia Acute Posterior epistaxis Acute
[2017-07-23] MEDS: PROPOFOL/EMULSION 100 ML IV SCH (16:54)
[2017-07-23] MEDS: ACETAMINOPHEN 650 MG/20.3 ML UDCUP TUBE PRN (18:14)
[2017-07-23] MEDS ORDERED: PROTOCOL MAGNESIUM 1 DOSE IV PRN (19:49)
[2017-07-23] MEDS ORDERED: PROTOCOL POTASSIUM 1 DOSE MISC PRN (19:49)
[2017-07-23] MEDS: HYDROCODONE/APAP 5/325 TAB TUBE SCH (20:54)
[2017-07-23] MEDS: INSULIN GLARGINE 100 UNITS/ML SYRINGE SC SCH (20:54)
[2017-07-23] MEDS: POTASSIUM Cl (KCl) 50 ML IV SCH ×2 (21:10→22:12)
[2017-07-23] MEDS: FLUTICASONE HFA 44 MCG MDI IH SCH (21:15)
[2017-07-24] MEDS: PIPERACILLIN/TAZO 3.375 GM/DEX 50 ML IV SCH ×4 (00:30→18:34)
[2017-07-24] MEDS ORDERED: POTASSIUM Cl (KCl) 50 ML IV ONE ×2 (01:35→19:19)
[2017-07-24 04:14] LABS: PLATELET COUNT 165 10^3/uL (150-400)
[2017-07-24] MEDS: ALBUTEROL 60 PUFFS/8 GM MDI IH PRN ×2 (04:58→08:10)
[2017-07-24] MEDS: PROPOFOL/EMULSION 100 ML IV SCH (05:59)
[2017-07-24] MEDS: INSULIN REGULAR, HUMAN 100 UNIT/1 ML VIAL STANDARD SC SCH ×3 (08:14→18:43)
[2017-07-24] MEDS: CHLORHEXIDINE GLUCONATE 15 ML UDL PO SCH (08:16)
[2017-07-24] MEDS: VANCOMYCIN 750 MG in NS 150 ML IV SCH (08:16)
[2017-07-24] MEDS: FAMOTIDINE 20 MG/NACL 50 ML IV SCH ×2 (08:16→19:46)
[2017-07-24] MEDS: FLUoxetine 20 MG CAP TUBE SCH (08:18)
[2017-07-24] MEDS: busPIRone 5 MG TAB TUBE SCH ×2 (08:19→19:45)
[2017-07-24] MEDS: SODIUM CL NASAL 45 ML BTL EACHNARE SCH ×3 (08:19→22:42)
[2017-07-24] MEDS: NYSTATIN SUSP 500000 UNIT/5 ML UDCUP PO SCH ×2 (08:19→19:45)
[2017-07-24] MEDS: POLYETHYLENE GLYCOL 3350 17 GM PKT TUBE SCH (08:19)
--- NOTE | 2017-07-24 10:35 | HOSPPROG ---
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 -acute sepsis -possible MRSA bacteremia with MRSA growing in a single blood culture set so far -recent severe epistaxis with recent admission for that -acute blood loss anemia due to above; * anemia had been worsening, but is now stable today -chronic hypoxemic resp failure -DM type 2 * Sugars higher today, likely due to resumption of her tube feeds; will need increased tx it is noted in the history and physical that the patient has an indeterminate troponin but on my review of her blood tests all of her troponins here were normal at this time; I do not see any indication that there is a acute cardiac abnormality occurring Seen by me on hospitalist rounds as well as multidisciplinary rounds today I reviewed in detail with Dr. Howard Minor PLANS: -resume metformen by tube today, and if needed increase insulin -recheck her hemoglobin in a.m. -follow respiratory status very closely currently on Vapotherm after extubation today -continue empiric antibiotics including vancomycin for MRSA, following cultures -follow closely for any further epistaxis SUBJECTIVE: Patient sedated on ventilator so the symptom assessment available OBJECTIVE Vitals reviewed: Currently stable vitals without fever Utility Spray Operator, my review: Sinus Exam: Sedated on ventilator Have not found signs of any bleeding assessing her at this time though assessing for possible posterior nasal bleeding somewhat difficult skin warm dry color ok resps per ventilator lungs very diminished breath sounds with some rales heart regular abd soft nondistended nontender, bowel sounds present limbs warm, no edema iv site ok Laboratory data: More anemic today, with hemoglobin down to 7.8, white blood cell count normal Sugars in reasonable range so far stable renal function, potassium low today at 3.0 Microbiology: Now with MRSA in blood cultures from at least 1 set Objective: Vital Signs Temp Pulse Resp BP Pulse Ox 38 C 65 20 141/51 H 99 07/24/17 06:00 07/24/17 08:05 07/24/17 08:05 07/24/17 06:00 07/24/17 08:05 Microbiology 07/22/17 17:20 - Final Sputum, Induced/Suctioned Laboratory Results 07/24/17 04:00 07/24/17 04:00 07/23/17 07/24/17 07/25/17 06:59 06:59 06:59 Intake Total 1433.2 2480.3 Output Total 625 1825 Balance 808.2 655.3 PT 14.8 SEC (12.0-15.0) 07/21/17 14:41 INR 1.14 (0.83-1.16) 07/21/17 14:41 ICD10 Worksheet Patient Problems: Problems Problem Status Onset Aspiration pneumonia Acute Fever Acute Generalized weakness Acute Hx: recurrent pneumonia Acute Hypoxia Acute Palliative care encounter Acute Periorbital hematoma Acute Pneumonia Acute Pneumonia Acute Posterior epistaxis Acute
--- NOTE | 2017-07-24 11:21 | PDINTPN ---
Fence Builder Progress Note Assessment/Plan: Assessment: Aspiration Pneumonia: MRSA in blood. Intubated 4/25 AM. ? due to nasal bleeding vs. TF aspiration? Oxygenation OK, comfortable on vent. On Zosyn/Vanco. Infiltrates, oxygenation improved. Diabetes: BSs still a bit high. On SSI Elevated BNP. Plan: Continue Zosyn/Vanco. Wean sedation as tolerated, CPAP trial and ? extubate today Repeat dose of Lasix Follow BSs. Will increase insulin if remains hyperglycemic after extubation. Continue TF Discussed with family. She's been progressively getting weaker at home, rarely does more that walk room to room, needs 2 people to get into a car. She's likely going to have worsened physical and mental functional capacity at discharge and will require an extended SNF stay. It's possible that she won't be able to get back to her current living situation with her son. 07/24/17 11:46 Subjective: Intubated, sedated. Objective: Vital Signs Temp Pulse Resp BP Pulse Ox 38 C 65 20 141/51 H 99 07/24/17 06:00 07/24/17 08:05 07/24/17 08:05 07/24/17 06:00 07/24/17 08:05 Microbiology 07/22/17 17:20 - Final Sputum, Induced/Suctioned Laboratory Results 07/24/17 04:00 07/24/17 04:00 07/23/17 07/24/17 07/25/17 05:59 05:59 05:59 Intake Total 1433.2 2480.3 Output Total 625 1825 Balance 808.2 655.3 PT 14.8 SEC (12.0-15.0) 07/21/17 14:41 INR 1.14 (0.83-1.16) 07/21/17 14:41 CXR: Decreased infiltrates. Images reviewed by me. Physical Exam - Physical Exam General Appearance: alert EENT: normal ENT inspection Neck: normal inspection Respiratory: normal breath sounds Cardiac/Chest: regular rate, rhythm, No edema Abdomen: normal bowel sounds, non-tender Skin: normal color, warm/dry Extremities: normal inspection Neuro/Psych: oriented x 3, No alert ICD10 Worksheet Patient Problems: Problems Problem Status Onset Aspiration pneumonia Acute Fever Acute Generalized weakness Acute Hx: recurrent pneumonia Acute Hypoxia Acute Palliative care encounter Acute Periorbital hematoma Acute Pneumonia Acute Pneumonia Acute Posterior epistaxis Acute
[2017-07-24] MEDS ORDERED: FUROSEMIDE 20 MG/2 ML VIAL IVP ONE ×2 (11:45→18:00)
[2017-07-24] MEDS ORDERED: ALBUMIN 25% 100 ML IV ONE (14:44)
[2017-07-24] MEDS ORDERED: ALBUMIN 25% 100 ML SOLN IV ONE (15:08)
--- NOTE | 2017-07-24 15:33 | ASMTCMCOM ---
CM Note CM Note Notes: Spoke with patient's son, Jose Carlos who prefers [facility] for his mother to do rehab. She has been there before and they had a good experience. Jose Carlos would like for his mother to have a private room if possible. Referral was sent to [facility] as a second choice but Jose Carlos prefers [facility] because they know his mother. Spoke with Dr. Guevara who states patient will definitely need rehab as the patient is in a weakened state. Referrals sent today for SNF rehab. CM will follow. Date Signed: 07/24/2017 03:32 PM Electronically Signed By:Cathy Miranda LCSW
[2017-07-24] MEDS: POTASSIUM Cl (KCl) 50 ML IV SCH ×3 (16:02→16:33)
[2017-07-24] MEDS: ACETAMINOPHEN 650 MG/20.3 ML UDCUP TUBE PRN (18:33)
[2017-07-24] MEDS: HYDROCODONE/APAP 5/325 TAB TUBE SCH (19:45)
[2017-07-24] MEDS: INSULIN GLARGINE 100 UNITS/ML SYRINGE SC SCH (20:19)
[2017-07-24] MEDS: FLUTICASONE HFA 44 MCG MDI IH SCH (21:40)
[2017-07-24] MEDS ORDERED: INSULIN LISPRO 100 UNIT/ML SC SCH (22:00)
[2017-07-25] MEDS: PIPERACILLIN/TAZO 3.375 GM/DEX 50 ML IV SCH ×4 (00:06→17:58)
[2017-07-25] MEDS: INSULIN LISPRO 100 UNIT/ML SC SCH ×4 (00:19→17:58)
[2017-07-25] MEDS ORDERED: POTASSIUM Cl (KCl) 50 ML IV ONE ×2 (02:30→07:09)
[2017-07-25] MEDS ORDERED: POTASSIUM Cl (KCl) 100 ML IV ONE (03:30)
[2017-07-25] MEDS: ALBUTEROL 3 ML DEYVIAL IH PRN (04:24)
[2017-07-25 05:10] LABS: PLATELET COUNT 193 10^3/uL (150-400)
[2017-07-25] MEDS: ACETAMINOPHEN 650 MG/20.3 ML UDCUP TUBE PRN ×3 (06:26→18:20)
[2017-07-25] MEDS: NYSTATIN SUSP 500000 UNIT/5 ML UDCUP PO SCH ×2 (07:47→21:16)
[2017-07-25] MEDS: FAMOTIDINE 20 MG/NACL 50 ML IV SCH (07:47)
[2017-07-25] MEDS: metFORMIN HCL 500 MG TAB TUBE SCH (07:48)
[2017-07-25] MEDS: POLYETHYLENE GLYCOL 3350 17 GM PKT TUBE SCH (07:48)
[2017-07-25] MEDS: busPIRone 5 MG TAB TUBE SCH ×2 (07:48→21:16)
[2017-07-25] MEDS: FLUoxetine 20 MG CAP TUBE SCH (07:48)
[2017-07-25] MEDS: FAMOTIDINE 20 MG TAB TUBE SCH ×2 (07:52→21:16)
[2017-07-25] MEDS ORDERED: VANCOMYCIN 1 GM in NS 250 ML IV SCH (08:00)
[2017-07-25] MEDS: SODIUM CL NASAL 45 ML BTL EACHNARE SCH ×3 (08:28→22:48)
[2017-07-25] MEDS ORDERED: FUROSEMIDE 20 MG/2 ML VIAL IVP ONE ×2 (10:41→14:16)
[2017-07-25] MEDS ORDERED: POTASSIUM Cl (KCl) 50 ML IV SCH (14:09)
--- NOTE | 2017-07-25 14:11 | PDINTPN ---
Chemistry Quality Control Analyst Progress Note Assessment/Plan: Assessment: Aspiration Pneumonia: MRSA in blood. Intubated 25 AM. ? due to nasal bleeding vs. TF aspiration? Oxygenation OK, comfortable on vent. On Zosyn/Vanco. Infiltrates, oxygenation improved. Diabetes: BSs still a bit high. On SSI Elevated BNP. Hypernatremia: UP again today, possible exacerbated by diuresis. Tachycardia: ? ST with ectopy vs. AF. Plan: Continue Zosyn/Vanco. Increase Vanco dose, as level is subtherapeutic Repeat dose of Lasix Increase Free H2O Check ECG Follow BSs. Will increase insulin if remains hyperglycemic after extubation. Continue TF Follow CXR Repeat Blood Cx Discussed with family. She's been progressively getting weaker at home, rarely does more that walk room to room, needs 2 people to get into a car. She's likely going to have worsened physical and mental functional capacity at discharge and will require an extended SNF stay. It's possible that she won't be able to get back to her current living situation with her son. 07/25/17 14:15 Subjective: Still quite weak. No complaints Objective: Vital Signs Temp Pulse Resp BP Pulse Ox 38.3 C 123 H 26 H 135/76 H 93 07/25/17 14:00 07/25/17 14:00 07/25/17 14:00 07/25/17 14:00 07/25/17 14:00 Microbiology 07/22/17 17:20 - Final Sputum, Induced/Suctioned Laboratory Results 07/25/17 04:52 07/25/17 11:59 07/24/17 07/25/17 07/26/17 05:59 05:59 05:59 Intake Total 2480.3 1778 Output Total 1825 4920 900 Balance 655.3 -3142 -900 PT 14.8 SEC (12.0-15.0) 07/21/17 14:41 INR 1.14 (0.83-1.16) 07/21/17 14:41 CXR: IMproved right lung, increased left base infiltrate. Images reviewed by me. Physical Exam - Physical Exam General Appearance: alert, no apparent distress EENT: normal ENT inspection Neck: normal inspection Respiratory: lungs clear, normal breath sounds Cardiac/Chest: regular rate, rhythm, No edema Abdomen: normal bowel sounds, non-tender Skin: normal color, warm/dry, No cyanosis Extremities: normal inspection Neuro/Psych: alert, No normal mood/affect (flat) ICD10 Worksheet Patient Problems: Problems Problem Status Onset Aspiration pneumonia Acute Fever Acute Generalized weakness Acute Hx: recurrent pneumonia Acute Hypoxia Acute Palliative care encounter Acute Periorbital hematoma Acute Pneumonia Acute Pneumonia Acute Posterior epistaxis Acute
[2017-07-25] MEDS ORDERED: POTASSIUM CL 20 MEQ/15 ML UDCUP TUBE ONE (14:15)
--- NOTE | 2017-07-25 14:34 | CPEKG ---
Heart Rate: 144 RR Interval: 417 P-R Interval: 150 QRSD Interval: 72 QT Interval: 300 QTC Interval: 465 P Clemons: 82 QRS Clemons: 115 T Wave Clemons: -62 EKG Severity - ABNORMAL ECG - EKG Impression: Atrial fibrillation EKG Impression: RIGHT AXIS DEVIATION Electronically Signed By: Fabian Ramírez 27-Jul-2017 06:17:09
--- NOTE | 2017-07-25 19:23 | HOSPPROG ---
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 -acute sepsis -possible MRSA bacteremia with MRSA growing in a single blood culture set so far -recent severe epistaxis with recent admission for that -acute blood loss anemia due to above; * anemia had been worsening, but is now stable today -chronic hypoxemic resp failure -DM type 2 * Sugars higher today, likely due to resumption of her tube feeds; will need increased tx it is noted in the history and physical that the patient has an indeterminate troponin but on my review of her blood tests all of her troponins here were normal at this time; I do not see any indication that there is a acute cardiac abnormality occurring Seen by me on hospitalist rounds as well as multidisciplinary rounds today I reviewed in detail with Dr. Howard Minor PLANS: -continue metformen by tube, and if needed increase insulin -recheck her hemoglobin in a.m. -follow respiratory status very closely currently on Vapotherm after extubation today -continue empiric antibiotics including vancomycin for MRSA, following cultures -follow closely for any further epistaxis SUBJECTIVE: now on vapotherm, but very sleepy and weak, nonconversant so no symptom assesment available OBJECTIVE Vitals reviewed: Currently stable vitals without fever Information Technology Program Manager, my review: Sinus Exam: minimally arousable, quite weak, not really moving or speaking skin warm dry color ok respsmildly labored on vapotherm lungs very diminished breath sounds with some rales heart regular abd soft nondistended nontender, bowel sounds present limbs warm, no edema iv site ok Laboratory data: wbc a bit higher rest of cbc stable chems stable Microbiology: Now with MRSA in blood cultures from at least 1 set and sputum w mrsa Objective: Vital Signs Temp Pulse Resp BP Pulse Ox 38.4 C H 103 H 33 H 160/83 H 96 07/25/17 18:00 07/25/17 18:00 07/25/17 18:00 07/25/17 18:00 07/25/17 18:00 Microbiology 07/22/17 17:20 - Final Sputum, Induced/Suctioned Laboratory Results 07/25/17 04:52 07/25/17 17:15 07/24/17 07/25/17 07/26/17 06:59 06:59 06:59 Intake Total 2480.3 1778 2280 Output Total 1825 4920 3100 Balance 655.3 -3142 -820 PT 14.8 SEC (12.0-15.0) 07/21/17 14:41 INR 1.14 (0.83-1.16) 07/21/17 14:41 - Time Spent With Patient Time Spent with Patient: greater than 35 minutes Time Spent with Patient: Greater than 35 minutes spent on this patients care, greater than 50% of time spent counseling, educating, and coordinating care regarding the above mentioned plan. ICD10 Worksheet Patient Problems: Problems Problem Status Onset Aspiration pneumonia Acute Fever Acute Generalized weakness Acute Hx: recurrent pneumonia Acute Hypoxia Acute Palliative care encounter Acute Periorbital hematoma Acute Pneumonia Acute Pneumonia Acute Posterior epistaxis Acute
[2017-07-25] MEDS ORDERED: VANCOMYCIN 750 MG in D5W 150 ML IV SCH (20:00)
[2017-07-25] MEDS: FLUTICASONE HFA 44 MCG MDI IH SCH (20:54)
[2017-07-25] MEDS: VANCOMYCIN 750 MG in NS 150 ML IV SCH (21:13)
[2017-07-25] MEDS: INSULIN GLARGINE 100 UNITS/ML SYRINGE SC SCH (21:13)
[2017-07-25] MEDS: HYDROCODONE/APAP 5/325 TAB TUBE SCH (21:16)
[2017-07-26] MEDS: PIPERACILLIN/TAZO 3.375 GM/DEX 50 ML IV SCH ×3 (00:22→12:41)
[2017-07-26] MEDS: INSULIN LISPRO 100 UNIT/ML SC SCH ×4 (00:22→17:43)
[2017-07-26] MEDS ORDERED: POTASSIUM Cl (KCl) 50 ML IV ONE ×2 (05:43→05:55)
[2017-07-26] MEDS ORDERED: POTASSIUM Cl (KCl) 100 ML IV SCH (05:45)
[2017-07-26] MEDS: VANCOMYCIN 750 MG in NS 150 ML IV SCH ×2 (08:15→21:10)
[2017-07-26] MEDS: SODIUM CL NASAL 45 ML BTL EACHNARE SCH ×3 (08:21→21:42)
[2017-07-26] MEDS: FAMOTIDINE 20 MG TAB TUBE SCH ×2 (08:21→21:10)
[2017-07-26] MEDS: FLUoxetine 20 MG CAP TUBE SCH (08:21)
[2017-07-26] MEDS: busPIRone 5 MG TAB TUBE SCH ×2 (08:21→21:09)
[2017-07-26] MEDS: ACETAMINOPHEN 650 MG/20.3 ML UDCUP TUBE PRN ×2 (08:21→13:02)
[2017-07-26] MEDS: metFORMIN HCL 500 MG TAB TUBE SCH (08:25)
[2017-07-26] MEDS: POLYETHYLENE GLYCOL 3350 17 GM PKT TUBE SCH (08:32)
[2017-07-26] MEDS ORDERED: ONDANSETRON DISINTEGRATING 4 MG TAB TUBE PRN (09:30)
[2017-07-26] MEDS ORDERED: NS 500 ML IV ONE (09:35)
--- NOTE | 2017-07-26 09:57 | HOSPPROG ---
Hospitalist Progress Note Assessment/Plan: 87 yo F w sepsis, aspiration pneumonia sepsis: as evidenced by tachycardia, fever and elevated lactate volume resuscitation on vanc zosyn pneumonia: suspected aspiration R lung base cleared from admit (interp by me) but L lung worse staph bacteremia: 1/2 on admit repeat pending sari picc placed 07/21, which may need to come out ID to see diabetes: continue insulin hold metformin given critical illness proph: lmwh code: full 35 min crit care Subjective: febrile and tachycardic. case d/w dr marrero Objective: Vital Signs Temp Pulse Resp BP Pulse Ox 38.5 C H 118 H 23 H 160/73 H 96 07/26/17 08:00 07/26/17 08:00 07/26/17 08:00 07/26/17 08:00 07/26/17 08:00 Microbiology 07/22/17 17:20 - Final Sputum, Induced/Suctioned Laboratory Results 07/25/17 04:52 07/26/17 03:55 07/25/17 07/26/17 07/27/17 05:59 05:59 05:59 Intake Total 1778 2526 750 Output Total 4920 4050 Balance -3142 -1524 750 PT 14.8 SEC (12.0-15.0) 07/21/17 14:41 INR 1.14 (0.83-1.16) 07/21/17 14:41 - Physical Exam Constitutional: no apparent distress, chronically ill appearing Eyes: PERRL, anicteric sclera Ears, Nose, Mouth, Throat: moist mucous membranes, hearing normal, other (no further nosebleed) Cardiovascular: no murmur, rub, or gallop, tachycardia, No systolic murmur Respiratory: other (rhonchorous andterolat), No expiratory wheeze Gastrointestinal: normoactive bowel sounds, soft, non-tender abdomen Genitourinary: no bladder fullness, wilburn in urethra Skin: warm, normal color Musculoskeletal: No full muscle strength Neurologic: No AAOx3 Psychiatric: interacting appropriately Lymph, Heme, Immunologic: no cervical LAD ICD10 Worksheet Patient Problems: Problems Problem Status Onset Aspiration pneumonia Acute Fever Acute Generalized weakness Acute Hx: recurrent pneumonia Acute Hypoxia Acute Palliative care encounter Acute Periorbital hematoma Acute Pneumonia Acute Pneumonia Acute Posterior epistaxis Acute
[2017-07-26 10:59] LABS: PLATELET COUNT 224 10^3/uL (150-400)
--- NOTE | 2017-07-26 12:07 | GCON ---
[f rep st] CONSULTATION INFECTIOUS DISEASE CONSULTATION DATE OF CONSULTATION: 07/26/2017 REQUESTING PHYSICIAN: Dr. Jonny Hernández REASON FOR CONSULT: To assist in the management of this 87-year-old female with methicillin-resistant Staphylococcus aureus bacteremia and pneumonia. HISTORY OF PRESENT ILLNESS: The patient is an 87-year-old female, whose previous medical history is notable for the followin. Diabetes mellitus. 2. Hypertension. 3. History of recurrent aspiration pneumonia with G-tube in place. 4. History of GERD. Regarding her present issues, the patient's son tells me that the [facility] through July 20 when she presented with severe epistaxis, notably in the left nostril. This was packed, and the patient was discharged in stable condition with nasal packing in place, and on oral amoxicillin 500 mg t.i.d. The patient's son tells me that as soon as they went home, she spiked a fever, and he tells me, "I had to bring her right back." The patient was found to be febrile to 38, and hypoxic. A chest x-ray showed a new left upper and right lower lung predominant multifocal pneumonia and small right pleural effusion. In the emergency room, the patient was given a dose of clindamycin and levofloxacin. She was then admitted to the unit, where these medications were discontinued, and Zosyn was started. On July 23, blood cultures grew gram-positive cocci in clusters in 1/4 bottles, so vancomycin was initiated, and she was given 750 mg x1. A sputum culture obtained on admission also notably grew 2+ MRSA without other organisms. Regarding her vancomycin, as outlined above, she was given 750 mg x1 on the , then 750 mg x1 on the . A trough was found to be less than 5 yesterday, so she was given a gram in the morning and 750 in the evening. A trough this morning is 11, and she has been started on 750 mg twice daily. The patient is persistently febrile and hypoxic, so I am asked to assist in her management. In speaking with the son today, who is her primary caregiver, he states that she has not had influenza recently. He acknowledges her recurrent aspiration events. The patient has frequent loose stools, but he has not noted a change in her loose stools since admission, per se. No recent travel, no other unusual epidemiologic exposure. She is essentially homebound. The patient's son states that he has a nurse come to the house 3 times weekly. PAST MEDICAL HISTORY: As outlined above. ALLERGIES: The patient has Augmentin listed as an allergy, but this will need to be clarified, as by report the son has mentioned that this "does not work," but it is not clear to me whether she has a true allergy to this. MEDICATIONS: Presently include vancomycin 750 mg IV q.12 hours, piperacillin/ tazobactam 3.375 g IV q.6 hours (day #5), Prozac 60 mg per the tube daily, Pepcid 20 mg twice daily, BuSpar 5 mg b.i.d., Proventil inhaler, [place], Tylenol. SOCIAL HISTORY: The patient is cared for by her son. 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 They have no pets. No recent travel. No tobacco. No alcohol. FAMILY HISTORY: Noncontributory. PHYSICAL EXAM: VITAL SIGNS: T-current is 38.3, T-max 38.5, heart rate 109, blood pressure 157/91, 95% on 40% high-flow. GENERAL: An elderly female, lying in bed, very hard of hearing with hearing aid in the right ear. Nontoxic appearing. Coughing intermittently. HEENT: Atraumatic, normocephalic. Pupils equal, round, reactive to light. Extraocular movements are intact. No conjunctival injection, icterus, petechiae. No sinus tenderness or discharge from the nares. There is no obvious bleeding from her nostrils or sinus process tenderness. Mucous membranes are moist. No oral lesions noted and no thrush. She is edentulous. NECK: Trachea is midline. No cervical or supraclavicular adenopathy. CARDIOVASCULAR: S1, S2. Difficult to hear heart sounds secondary to adventitious noise from her lungs. LUNGS: Mildly increased respiratory effort. Diffuse coarse breath sounds throughout with rales and rhonchi noted throughout all lung cordero anteriorly. ABDOMEN: Slightly distended, but soft. G-tube in place. The base of the G-tube has no obvious evidence of cellulitis. EXTREMITIES: The patient has a PICC line in the right upper extremity. Her hand is slightly puffy, but the arm itself looks without tenderness or swelling. 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 Otherwise, no embolic phenomenon or evidence of endocarditis. She is missing her great toenails. NEUROLOGIC: She is awake and alert and is moving all 4 extremities. LABORATORY DATA: Blood cultures x2 on July 21 are growing 1/4 bottles of MRSA with a vancomycin FELIPE of 1. Sputum culture with 2+ MRSA and no other pathogens. Gram stain showed no organisms, but 2+ polys. Vancomycin FELIPE of 1. Repeat blood cultures x2 are pending from the . White blood cell count of 12.3 (up from 10.5), hematocrit 28, platelet count of 224, BUN and creatinine 20/0.5. AST 18, ALT 40, alkaline phosphatase 98, total bilirubin of 0.5, albumin of 2.5. Vancomycin trough on less than 5, then on the 10.9. Urinalysis with 2+ protein. Radiographic data as outlined above. IMPRESSION: 87-year-old female with multiple medical problems, now admitted with methicillin -resistant Staph aureus bacteremia, likely secondary to multilobar pneumonia. She does not appear to have other pathogens in her sputum at this time other than MRSA, and she has only been on 1 therapeutic day of Vancomycin given her undetectable trough yesterday. There is no evidence of toxic shock syndrome in the setting of her recent nasal packing, or endovascular infection. PLAN: 1. Would obtain CT scan of the chest to further evaluate for parapneumonic effusion, etc. 2. Repeat blood cultures are pending. 3. Agree with discontinuing the PICC line and replacing it ultimately when blood cultures have sterilized, given that this was placed in the setting of bacteremia. 4. Continue Vancomycin 750 mg IV q.12 hours and follow trough. Would aim for higher trough in the setting of pneumonia, but will need to tread slightly in the setting of her age. 5. Discontinue piperacillin/tazobactam. This is her 5th day, and doubt this is adding any benefit. The combination of vancomycin and Zosyn can contribute to renal toxicity and she does not appear to have a need for this antibiotic. 6. Obtain TTE for completeness sake in the setting of Staph aureus bacteremia, although no obvious evidence of endovascular infection at this time. 7. Continue contact isolation for MRSA as you are. Thank you very much for consulting Infectious Diseases. We will continue to follow this patient with you. /[id number]/[id number]
[2017-07-26] MEDS: NYSTATIN SUSP 500000 UNIT/5 ML UDCUP PO SCH ×2 (12:54→21:09)
--- NOTE | 2017-07-26 14:38 | ECHO ---
[email or web address] [address] Main: [phone] Fax: [email or web address] Echocardiogram Name: SANFORD MACKENZIE MR#: [id number] Study Date: 07/26/2017 Study Time: 01:05 PM Date of : 1930 Age: 87 year(s) Height: 149.9 cm (59 in.) Weight: 63.5 kg (140 lb.) BSA: 1.58 m2 Gender: Female Examination: Echo Indication: Image Quality: Adequate Contrast: Requested by: Gaye Burns BP: 149 mmHg/84 mmHg Heart Rate: Rhythm: Indication: Procedure Staff Planting Material Carrier: Sveta Robertson RDCS Reading Physician: Ricardo Greenwood MD Requesting Provider: Conclusions: Asymmetrical septal LV hypertrophy. Normal global systolic LV function. EF is 71 %. Hyperdynamic LV with increased LVOT velocities. Peak gradient 33 mmhg mid septum. Patient is unable to valsava. Mild mitral valve regurgitation is present. Mild tricuspid regurgitation is present. Measurements: Chambers Valvular Assessment AV/MV Valvular Assessment TV/PV Normal Normal Normal Name Value Range Name Value Range Name Value Range Ao Chery (2D): 2.8 cm (1.4 cm-2.6 AV meanP mmHg ( - ) TR Vmax: 2.70 mm/s ( - ) cm) MV E Vmax: 0.53 m/s ( - ) TR PGmax: 29 mmHg ( - ) IVSd (2D): 1.6 cm (0.6 cm-1.1 MV A Vmax: 1.24 m/s ( - ) syst. PAP: 34 mmHg ( - ) cm) MV E/A: 0.43 ( - ) PV Vmax: 0.92 m/s (0.6 m/s-0.9 LVDd (2D): 3.2 cm (3.9 cm-5.3 MV PHT: 0.086 s ( - ) m/s) cm) MVA (PHT): 2.6 s ( - ) PV PGmax: 3 mmHg ( - ) LVDs (2D): 2.3 cm (2.1 cm-4 cm) LVPWd (2D): 1.1 cm ( - ) LVEF (BP): 71 % (>=55 %) RVDd(2D): 2.4 cm (1.9 cm-3.8 cmmm) Continued Measurements: Chambers Valvular Assessment AV/MV Valvular Assessment TV/PV Name Value Name Value Name Value LADs Lon.7 cm MV DecTime: 264 m/s CVP (est.): 5 mmHg Patient: SANFORD MACKENZIE Study Date: 07/26/2017 Page 1 of 2 01:05 PM LA Area: 13.6 cm2 MV E/E' Lateral: 4.00 LA Volume: 43 ml LA Volume Index: 27.2 ml/m2 Additional Vessels Name Value Ao Ascendin.8 cm Inferior Vena Cava: 1.0 cm Findings: Left Ventricle: Normal size left ventricle. Asymmetrical septal LV hypertrophy. Normal global systolic LV function. EF is 71 %. No regional wall motion abnormality. Unable to assess diastolic dysfunction. Hyperdynamic LV with increased LVOT velocities. Peak gradient 33 mmhg mid septum. Patient is unable to valsava. Right Ventricle: Normal size right ventricle. Normal RV function. Left Atrium: The left atrium is normal in size. Right Atrium: The right atrium is normal in size. Mitral Valve: The mitral valve is normal in appearance and function. Mild mitral valve regurgitation is present. No mitral stenosis is present. Aortic Valve: The aortic valve is normal in appearance and function. There is no significant aortic valve regurgitation. No aortic valve stenosis is present. Tricuspid Valve: The tricuspid valve is normal in appearance and function. Mild tricuspid regurgitation is present. The pulmonary artery pressure is normal. Right ventricular systolic pressure measures 34mmHg. Pulmonic Valve: The pulmonic valve is normal in appearance and function. There is no pulmonic regurgitation seen. Aorta: The aorta is normal. Normal size aortic root measuring 2.8 cm. Normal size ascending aorta measuring 2.8 cm. Pericardium: No pericardial effusion. No pleural effusion. Exam Comments: Technically difficult exam patient supine in ICU on breathing treatments. (No Signature Object) Patient: SANFORD MACKENZIE Study Date: 07/26/2017 Page 2 of 2 01:05 PM [id number]
--- NOTE | 2017-07-26 14:47 | PDINTPN ---
Merchandising Professor Progress Note Assessment/Plan: Assessment: Aspiration Pneumonia: MRSA in blood and sputum. Intubated 4/25 AM. ? due to nasal bleeding vs. TF aspiration? Oxygenation OK, comfortable on vent. On Zosyn/ Vanco. Vanco level was low, now therapeutic on higher dose. Infiltrates, oxygenation improved. Diabetes: BSs still a bit high. On SSI Elevated BNP. Hypernatremia: Down today Tachycardia: Stable Plan: Continue Vanco. Discontinue Zosyn. Increase Free H2O Follow BSs. Will increase insulin if remains hyperglycemic after extubation. Continue TF Follow CXR Follow repeat Blood Cx Mucinex, mucomyst to help with secretions. Consider bronch if not getting better. Probably should remove PICC to ensure that it's not been seeded with MRSA. Discussed with family. She's been progressively getting weaker at home, rarely does more that walk room to room, needs 2 people to get into a car. She's likely going to have worsened physical and mental functional capacity at discharge and will require an extended SNF stay. It's possible that she won't be able to get back to her current living situation with her son. 07/26/17 14:49 Subjective: Still quite weak. Frequent cough with posterior pharyngeal secretions she can't cough all the way up. Objective: Vital Signs Temp Pulse Resp BP Pulse Ox 38.0 C 115 H 35 H 173/82 H 99 07/26/17 11:35 07/26/17 11:35 07/26/17 10:00 07/26/17 11:35 07/26/17 11:35 Microbiology 07/22/17 17:20 - Final Sputum, Induced/Suctioned Sputum Culture - Final MRSA Laboratory Results 07/26/17 10:05 07/26/17 10:05 07/25/17 07/26/17 07/27/17 05:59 05:59 05:59 Intake Total 1778 2526 750 Output Total 4920 4050 500 Balance -3142 -1524 250 PT 14.8 SEC (12.0-15.0) 07/21/17 14:41 INR 1.14 (0.83-1.16) 07/21/17 14:41 CXR: Improved bilateral infiltrates. Images reviewed. CT: Bibasilar areas of consolidation, with patchy upper lung airspace infiltrates. Some mucous plugs on the right. Images reviewed. ECG: ST with ectopy. Physical Exam - Physical Exam General Appearance: alert, no apparent distress EENT: PERRL/EOMI Neck: normal inspection Respiratory: lungs clear, normal breath sounds, other (upper airway rhonchi) Cardiac/Chest: regular rate, rhythm, No edema Abdomen: normal bowel sounds, non-tender Skin: normal color, warm/dry Extremities: normal inspection ICD10 Worksheet Patient Problems: Problems Problem Status Onset Aspiration pneumonia Acute Fever Acute Generalized weakness Acute Hx: recurrent pneumonia Acute Hypoxia Acute Palliative care encounter Acute Periorbital hematoma Acute Pneumonia Acute Pneumonia Acute Posterior epistaxis Acute
[2017-07-26] MEDS ORDERED: guaiFENesin 600 MG TAB.ER PO SCH (15:00)
[2017-07-26] MEDS: GUAIFENESIN/DM 10 ML UDCUP TUBE PRN (15:09)
[2017-07-26] MEDS: ALBUTEROL 3 ML DEYVIAL IH PRN ×2 (17:15→19:38)
[2017-07-26] MEDS: ACETYLCYSTEINE 20% IH/PO 4 ML VIAL IH SCH ×2 (17:15→19:37)
[2017-07-26] MEDS: guaiFENesin 200 MG/10 ML UDL TUBE SCH (17:40)
[2017-07-26] MEDS: FLUTICASONE HFA 44 MCG MDI IH SCH (19:38)
[2017-07-26] MEDS: INSULIN GLARGINE 100 UNITS/ML SYRINGE SC SCH (21:10)
[2017-07-26] MEDS: HYDROCODONE/APAP 5/325 TAB TUBE SCH (21:10)
[2017-07-27] MEDS: INSULIN LISPRO 100 UNIT/ML SC SCH ×4 (01:36→17:14)
[2017-07-27] MEDS: guaiFENesin 200 MG/10 ML UDL TUBE SCH ×4 (01:36→17:07)
[2017-07-27] MEDS: ACETYLCYSTEINE 20% IH/PO 4 ML VIAL IH SCH ×5 (04:10→23:02)
[2017-07-27] MEDS: ALBUTEROL 3 ML DEYVIAL IH PRN ×3 (04:10→23:02)
[2017-07-27] MEDS: ACETAMINOPHEN 650 MG/20.3 ML UDCUP TUBE PRN ×2 (04:27→17:13)
[2017-07-27 06:02] LABS: PLATELET COUNT 241 10^3/uL (150-400)
[2017-07-27] MEDS: POTASSIUM Cl (KCl) 100 ML IV SCH ×2 (06:29→08:40)
[2017-07-27] MEDS: NYSTATIN SUSP 500000 UNIT/5 ML UDCUP PO SCH ×2 (08:39→20:26)
[2017-07-27] MEDS: VANCOMYCIN 750 MG in NS 150 ML IV SCH ×2 (08:39→20:26)
[2017-07-27] MEDS: POLYETHYLENE GLYCOL 3350 17 GM PKT TUBE SCH (08:39)
[2017-07-27] MEDS: busPIRone 5 MG TAB TUBE SCH ×2 (08:39→20:26)
[2017-07-27] MEDS: FAMOTIDINE 20 MG TAB TUBE SCH ×2 (08:39→20:26)
[2017-07-27] MEDS: FLUoxetine 20 MG CAP TUBE SCH (08:39)
[2017-07-27] MEDS: SODIUM CL NASAL 45 ML BTL EACHNARE SCH ×3 (08:40→22:15)
--- NOTE | 2017-07-27 08:57 | HOSPPROG ---
Hospitalist Progress Note Assessment/Plan: 87 yo F w sepsis, aspiration pneumonia. persistently febrile and tachycardic ?PE: echo w pulm htn w tachycardia not on prophylaxis PE workup today fever: CT abd and pelvis today belly soft, lft's ok picc site (removed) ok repeat blood cx neg thus far sepsis: as evidenced by tachycardia, fever and elevated lactate volume resuscitation on vanc repeat lactate this AM pneumonia: suspected aspiration R lung base cleared from admit (interp by me) but L lung worse staph bacteremia: 1/2 on admit repeat pending sari picc placed 07/21, which may need to come out ID to see diabetes: continue insulin hold metformin given critical illness proph: lmwh code: full 35 min crit care Subjective: case d/w dr coleman. febrile overnight Objective: Vital Signs Temp Pulse Resp BP Pulse Ox 38.0 C 136 H 34 H 163/92 H 95 07/27/17 07:26 07/27/17 07:26 07/27/17 07:26 07/27/17 07:26 07/27/17 07:26 Microbiology 07/22/17 17:20 - Final Sputum, Induced/Suctioned Sputum Culture - Final MRSA Laboratory Results 07/27/17 05:31 07/27/17 05:31 07/26/17 07/27/17 07/28/17 05:59 05:59 05:59 Intake Total 2526 3390 Output Total 4050 1800 Balance -1524 1590 PT 14.8 SEC (12.0-15.0) 07/21/17 14:41 INR 1.14 (0.83-1.16) 07/21/17 14:41 - Physical Exam Constitutional: no apparent distress, appears nourished Eyes: PERRL, anicteric sclera Ears, Nose, Mouth, Throat: moist mucous membranes, hearing normal Cardiovascular: no murmur, rub, or gallop, tachycardia Respiratory: no respiratory distress, no rales or rhonchi Gastrointestinal: normoactive bowel sounds, soft, non-tender abdomen, No guarding, No rebound Genitourinary: wilburn in urethra Skin: warm, normal color Musculoskeletal: No full muscle strength Neurologic: AAOx3 Psychiatric: interacting appropriately ICD10 Worksheet Patient Problems: Problems Problem Status Onset Aspiration pneumonia Acute Fever Acute Generalized weakness Acute Hx: recurrent pneumonia Acute Hypoxia Acute Palliative care encounter Acute Periorbital hematoma Acute Pneumonia Acute Pneumonia Acute Posterior epistaxis Acute
[2017-07-27] MEDS ORDERED: METOPROLOL TARTRATE 5 MG/5 ML INJ IVP ONE (10:24)
[2017-07-27] MEDS ORDERED: ALTEPLASE 2 MG VIAL IVP PRN (12:45)
[2017-07-27] MEDS ORDERED: METOPROLOL TARTRATE 5 MG/5 ML INJ ONE (14:09)
[2017-07-27] MEDS ORDERED: IOPAMIDOL (ISOVUE 370) 100 ML BTL IV ONE (14:48)
--- NOTE | 2017-07-27 16:14 | PDRADPN ---
Radiology Procedure Note Date of Procedure: 07/27/17 Radiologist: Luis Lynch Anesthesia: Local (Specify) Pre-op Diagnosis: access for med Post-op Diagnosis: same Indication: poor peripheral access Procedure: RUE PICC Finding(s): 40cm length. ok to use. Inf/Abcess present in the surg proc area at time of surgery?: No EBL: Minimal Complications: none
--- NOTE | 2017-07-27 16:15 | ASMTCMCOM ---
CM Note CM Note Notes: Patient to have scan today to look for other clots. Patient has been in and out of Afib. Palliative consult might be appropriate. Date Signed: 07/27/2017 04:15 PM Electronically Signed By:Swati Dozier LCSW
--- NOTE | 2017-07-27 17:30 | PDINTPN ---
Swing Tender Progress Note Assessment/Plan: Assessment: Aspiration Pneumonia: MRSA in blood and sputum. Intubated 07/22, extubated. On low-flow oxygen however secretions and laryngeal stridor to some degree persists. Zosyn stopped by Infectious Disease, on bronchodilators, mucolytics. MRSA bacteremia, with the same in sputum. On vancomycin. Diabetes: BSs high. On SSI Hypernatremia: Resolved Tachycardia/AFib: Blood pressure is tolerating this. Will add metoprolol Prophylaxis: On famotidine for GI, SCDs for DVT. Will add Lovenox tomorrow if no contraindications. FTT: She's been progressively getting weaker at home, rarely does more that walk room to room, needs 2 people to get into a car. She's likely going to have worsened physical and mental functional capacity at discharge and will require an extended SNF stay. It's possible that she won't be able to get back to her current living situation with her son. Palliative care consultation likely indicated, and DNR status needs to be discussed. Will discuss with the patient' s son. Plan: Continue supportive care in the intensive care unit Continue Vanco. Will discuss antibiotic coverage for aspiration and anaerobes with Infectious Disease Continue Free H2O Follow BSs - cover by sliding scale. Continue TFs per PEG tube Repeat CXR in a.m. Mucinex, mucomyst to help with secretions. Consider therapeutic bronchoscopy tomorrow if significant secretions persist. Agree with their PICC line for venous access. 40 min of critical care time spent directly with the patient - discussed with the patient's son, RT, nursing and hospitalist Subjective: In bed sitting up. Relatively nonverbal. Course audible respirations with secretions and inspiratory harshness Objective: Vital Signs Temp Pulse Resp BP Pulse Ox 37.8 C 120 H 26 H 158/84 H 100 07/27/17 15:40 07/27/17 15:40 07/27/17 15:40 07/27/17 15:40 07/27/17 15:40 Microbiology 07/22/17 17:20 - Final Sputum, Induced/Suctioned Sputum Culture - Final MRSA Laboratory Results 07/27/17 05:31 07/26/17 07/27/17 07/28/17 05:59 05:59 05:59 Intake Total 2526 3390 1074 Output Total 4050 1800 Balance -1524 1590 1074 PT 14.8 SEC (12.0-15.0) 07/21/17 14:41 INR 1.14 (0.83-1.16) 07/21/17 14:41 Laboratory Tests 07/27/17 07/27/17 07/27/17 01:59 05:31 09:51 D-Dimer VBG Lactic Acid Calcium 8.6 Total Bilirubin 0.5 AST 24 ALT 27 NT-Pro-B Natriuret Pep 4080 H Albumin 2.7 L TSH 2.190 C. difficile Tox (PCR) NEGATIVE 07/27/17 07/27/17 14:23 14:25 D-Dimer 3.60 H VBG Lactic Acid 1.3 D Calcium Total Bilirubin AST ALT NT-Pro-B Natriuret Pep Albumin TSH C. difficile Tox (PCR) CT angiogram: No pulmonary emboli. Patchy infiltrates, unchanged over 24 hr, consistent with aspiration pneumonitis. Increased lateral right middle lobe atelectasis, probably secondary to mucus plugging. CT abdomen: Negative for abscess, bowel obstruction, etc. Physical Exam - Physical Exam General Appearance: mild distress (Secondary to secretions and breathing), other (Looks to voice, not answering questions to me. Will nod head) EENT: PERRL/EOMI, other (OxyMask in place at 5 L) Neck: normal inspection (No obvious JVD but large neck) Respiratory: respiratory distress (Mild), rhonchi (And central secretions bilaterally), stridor (No suki stridor but inspiratory and expiratory harshness present), wheezing (Present in exhalation secondary to secretions), No lungs clear, No normal breath sounds Cardiac/Chest: tachycardia, irregularly irregular Abdomen: normal bowel sounds, non-tender, soft, other (Peg tube in place) Pelvic Exam: other (Garcia catheter in place, overall good urine output) Skin: warm/dry, pallor Extremities: pedal edema Neuro/Psych: no motor/sensory deficits (Moves all extremities equally), cognition abnormalities (Hard to assess. Confused, does not appear to be oriented.) ICD10 Worksheet Patient Problems: Problems Problem Status Onset Aspiration pneumonia Acute Pneumonia Acute Periorbital hematoma Acute Fever Acute Hypoxia Acute Generalized weakness Acute Hx: recurrent pneumonia Acute Palliative care encounter Acute Pneumonia Acute Posterior epistaxis Acute
--- NOTE | 2017-07-27 17:48 | PCMIDPN ---
Assessment/Plan: Assessment/Plan: * MRSA bacteremia/multifocal pneumonia: Repeat blood culture show no growth to date. Persistent fever and leukocytosis. Repeat CT scan of chest and CT scan of abdomen and pelvis showed no focal areas of persistence other than no pneumonia. Pleural effusion remains small in stable in size. May simply need more time on antibiotic therapy to see improvement. Continue vancomycin and monitor clinically over time. Will reassess vancomycin trough tomorrow. 07/27/17 17:45 Subjective: Patient follows commands but does not interact further during course of exam today. Objective: Vital Signs Temp Pulse Resp BP Pulse Ox 37.8 C 120 H 26 H 158/84 H 100 07/27/17 15:40 07/27/17 15:40 07/27/17 15:40 07/27/17 15:40 07/27/17 15:40 Microbiology 07/22/17 17:20 - Final Sputum, Induced/Suctioned Sputum Culture - Final MRSA Laboratory Results 07/27/17 05:31 07/26/17 07/27/17 07/28/17 05:59 05:59 05:59 Intake Total 2526 3390 1074 Output Total 4050 1800 Balance -1524 1590 1074 Vancomycin # 4 Blood cultures 07/25/17 no growth Temperature maximum 38.3 CT chest, abdomen, pelvis: Multifocal pneumonia with stable, small pleural effusion; no evidence intra-abdominal abscess Echocardiogram with mild TR, MR - Physical Exam General Appearance: alert, non-toxic EENT: No scleral icterus, No conjunctival petechiae Respiratory: coarse breath sounds, other (Increased respiratory effort present) Cardiac/Chest: tachycardia, No systolic murmur Abdomen: non-tender, No distended - Line/s RUE PICC Lines: No drainage, No erythema ICD10 Worksheet Patient Problems: Problems Problem Status Onset Aspiration pneumonia Acute Fever Acute Generalized weakness Acute Hx: recurrent pneumonia Acute Hypoxia Acute Palliative care encounter Acute Periorbital hematoma Acute Pneumonia Acute Pneumonia Acute Posterior epistaxis Acute
[2017-07-27] MEDS: METOPROLOL TARTRATE 5 MG/5 ML INJ IVP SCH (18:08)
[2017-07-27] MEDS: HYDROCODONE/APAP 5/325 TAB TUBE SCH (20:26)
[2017-07-27] MEDS: INSULIN GLARGINE 100 UNITS/ML SYRINGE SC SCH (20:26)
[2017-07-27] MEDS: FLUTICASONE HFA 44 MCG MDI IH SCH (22:14)
[2017-07-28] MEDS: INSULIN LISPRO 100 UNIT/ML SC SCH ×4 (00:10→17:32)
[2017-07-28] MEDS: guaiFENesin 200 MG/10 ML UDL TUBE SCH ×4 (00:14→17:19)
[2017-07-28] MEDS: METOPROLOL TARTRATE 5 MG/5 ML INJ IVP SCH ×2 (00:14→06:07)
[2017-07-28 04:47] LABS: PLATELET COUNT 290 10^3/uL (150-400)
[2017-07-28] MEDS ORDERED: POTASSIUM Cl (KCl) 50 ML IV ONE ×2 (05:52→19:55)
[2017-07-28] MEDS: ACETYLCYSTEINE 20% IH/PO 4 ML VIAL IH SCH ×4 (06:05→23:46)
[2017-07-28] MEDS: ALBUTEROL 3 ML DEYVIAL IH PRN ×4 (06:06→23:46)
[2017-07-28] MEDS: POLYETHYLENE GLYCOL 3350 17 GM PKT TUBE SCH (08:03)
[2017-07-28] MEDS: FAMOTIDINE 20 MG TAB TUBE SCH ×2 (08:34→20:08)
[2017-07-28] MEDS: FLUoxetine 20 MG CAP TUBE SCH (08:34)
[2017-07-28] MEDS: busPIRone 5 MG TAB TUBE SCH ×2 (08:34→20:08)
[2017-07-28] MEDS: SODIUM CL NASAL 45 ML BTL EACHNARE SCH ×3 (08:35→22:36)
[2017-07-28] MEDS: NYSTATIN SUSP 500000 UNIT/5 ML UDCUP PO SCH ×2 (08:35→20:08)
[2017-07-28] MEDS: VANCOMYCIN 750 MG in NS 150 ML IV SCH ×2 (09:13→20:07)
--- NOTE | 2017-07-28 09:56 | HOSPPROG ---
Hospitalist Progress Note Assessment/Plan: 87 yo F w sepsis, aspiration pneumonia. persistently febrile and tachycardic ?PE: neg PE study tachycardia: fevers and albuterol euvolemic fever: CT abd and pelvis neg for abscess. (images reviewed/interp by me) belly soft, lft's ok picc site (removed) ok repeat blood cx neg thus far AHRF: SUSPECT ASPIRATION possible bronch today sepsis: as evidenced by tachycardia, fever and elevated lactate lactate normalized volume resuscitation on vanc repeat lactate this AM pneumonia: suspected aspiration R lung base cleared from admit (interp by me) but L lung worse staph bacteremia: 1/ on admit repeat pending sari picc placed 07/21, which may need to come out ID to see 07/25 blood cx neg plan of care: she is doing poorly, persistently febrile w minimal progress in setting of outpt functional decline she reamins full code per her wishes son acknowledges her decline and hopes for the best palliative care consult today diabetes: continue insulin hold metformin given critical illness proph: lmwh code: full 35 min crit care Subjective: cxr unchanged (interp by me). febrile overnight. case d.w dr coleman Objective: Vital Signs Temp Pulse Resp BP Pulse Ox 36.9 C 101 H 40 H 159/65 H 94 07/28/17 07:42 07/28/17 07:42 07/28/17 07:42 07/28/17 09:20 07/28/17 07:42 Laboratory Results 07/28/17 04:15 07/28/17 04:15 07/27/17 07/28/17 07/29/17 05:59 05:59 05:59 Intake Total 3390 2220 200 Output Total 1800 1525 Balance 1590 695 200 PT 14.8 SEC (12.0-15.0) 07/21/17 14:41 INR 1.14 (0.83-1.16) 07/21/17 14:41 - Physical Exam Constitutional: chronically ill appearing, cachectic, other (tachypneic) Eyes: PERRL, anicteric sclera Ears, Nose, Mouth, Throat: moist mucous membranes, hearing normal Cardiovascular: no murmur, rub, or gallop, tachycardia Respiratory: other (crackles anterolat, tachypneic) Gastrointestinal: normoactive bowel sounds, soft, non-tender abdomen Genitourinary: no bladder fullness, wilburn in urethra Skin: warm, normal color Musculoskeletal: full muscle strength, no muscle tenderness Neurologic: AAOx3 ICD10 Worksheet Patient Problems: Problems Problem Status Onset Aspiration pneumonia Acute Fever Acute Generalized weakness Acute Hx: recurrent pneumonia Acute Hypoxia Acute Palliative care encounter Acute Periorbital hematoma Acute Pneumonia Acute Pneumonia Acute Posterior epistaxis Acute
[2017-07-28] MEDS ORDERED: LIDOCAINE 2% JELLY 5 ML TUBE TP ONE (11:44)
[2017-07-28] MEDS ORDERED: LIDOCAINE 1% 300 MG/30 ML SDV MISC ONE (11:44)
[2017-07-28] MEDS ORDERED: LIDOCAINE 1% 300 MG/30 ML SDV ONE (11:45)
[2017-07-28] MEDS ORDERED: LIDOCAINE 2% JELLY 5 ML TUBE ONE (11:46)
[2017-07-28] MEDS ORDERED: MIDAZOLAM 2 MG/2 ML VIAL ONE (11:49)
--- NOTE | 2017-07-28 11:51 | CPEKG ---
Heart Rate: 105 RR Interval: 571 P-R Interval: 158 QRSD Interval: 72 QT Interval: 264 QTC Interval: 349 P [place]: 0 QRS [place]: 128 T Wave [place]: 207 EKG Severity - ABNORMAL ECG - EKG Impression: SINUS TACHYCARDIA EKG Impression: LEFT POSTERIOR FASCICULAR BLOCK EKG Impression: ABNRM R PROG, CONSIDER ASMI OR LEAD PLACEMENT Electronically Signed By: Manny Mcgill 29-Jul-2017 08:52:22
[2017-07-28] MEDS ORDERED: MIDAZOLAM 2 MG/2 ML VIAL IVP ONE (12:00)
--- NOTE | 2017-07-28 12:45 | PDINTPN ---
Financial Compliance Officer Progress Note Assessment/Plan: Assessment: Aspiration Pneumonia: MRSA in blood and sputum. Intubated 07/22, extubated. On Oxymizer at 10 L. Secretions and laryngeal stridor persist. Zosyn stopped by Infectious Disease, on bronchodilators, mucolytics. MRSA bacteremia, with the same in sputum. On vancomycin. Diabetes: BSs high. On SSI Hypernatremia: Resolved Tachycardia/AFib: Blood pressure is tolerating this. Will add metoprolol Prophylaxis: On famotidine for GI. SCDs and Lovenox for DVT. FTT: She's been progressively getting weaker at home, rarely does more that walk room to room, needs 2 people to get into a car. She has continued to deteriorate in here, very weak, unable to cough or clear secretions, obtunded now. Prognosis would appear to be quite poor. I would favor a DNR status at this point. Palliative care to visit with family today.. Plan: Continue supportive care in the intensive care unit Palliative care conference today Continue Vanco. Bronchoscopy today to assess upper and lower airways. Will obtain cultures. Discuss antibiotic coverage for aspiration and anaerobes with Infectious Disease Continue Free H2O Follow BSs - cover by sliding scale. Continue TFs per PEG tube Repeat CXR in a.m. Continue Mucinex, mucomyst to help with secretions. 35 min of critical care time spent directly with the patient, not including bronchoscopy - discussed with the patient's son and 1 daughter, RT, nursing and hospitalist Subjective: Obtunded, arouses weakly, opens eyes. Nonverbal for me. Objective: Vital Signs Temp Pulse Resp BP Pulse Ox 37.6 C 95 34 H 151/72 H 99 07/28/17 10:58 07/28/17 12:25 07/28/17 12:25 07/28/17 12:25 07/28/17 12:25 Laboratory Results 07/28/17 04:15 07/28/17 04:15 07/27/17 07/28/17 07/29/17 05:59 05:59 05:59 Intake Total 3390 2220 980 Output Total 1800 1525 Balance 1590 695 980 PT 14.8 SEC (12.0-15.0) 07/21/17 14:41 INR 1.14 (0.83-1.16) 07/21/17 14:41 CXR: Bibasilar infiltrates/atelectasis, right greater than left Physical Exam - Physical Exam General Appearance: mild distress (Respiratory), obtunded, No alert EENT: exophthalmia Neck: other (Oxymizer mask in place at 10 L. Harshness over the trachea both with inspiration expiration ) Respiratory: respiratory distress (Mild), decreased breath sounds, rhonchi ( Present in lower lungs), stridor (Over trachea), No normal breath sounds Cardiac/Chest: irregularly irregular (AFib approximately 100) Abdomen: non-tender, soft, No normal bowel sounds (, decreased) Pelvic Exam: other (Garcia catheter in place, good urine output) Extremities: pedal edema (Trace +) Neuro/Psych: no motor/sensory deficits (Moves all extremities weakly), cognition abnormalities (Obtunded, nonverbal) ICD10 Worksheet Patient Problems: Problems Problem Status Onset Aspiration pneumonia Acute Pneumonia Acute Periorbital hematoma Acute Fever Acute Hypoxia Acute Generalized weakness Acute Hx: recurrent pneumonia Acute Palliative care encounter Acute Pneumonia Acute Posterior epistaxis Acute
--- NOTE | 2017-07-28 13:26 | GPN ---
[f rep st] PROCEDURE NOTE THERAPEUTIC BRONCHOSCOPY DATE OF PROCEDURE: 07/28/2017 REASON FOR PROCEDURE: Persistent respiratory insufficiency with stridor and bilateral secretions that she cannot clear. PROCEDURE NOTE: The procedure was done in the intensive care unit. Informed consent was obtained from the patient's family. Appropriate time-out was performed. Conscious sedation included 1 mg of IV Versed. 1% lidocaine was used for topical anesthesia. The fiberoptic bronchoscope was passed orally into the larynx. The vocal cords were observed. Neither vocal cord appeared to move very well. They appeared to be somewhat paretic, perhaps paralyzed. The right cord may have moved slightly better than the left? The region below the cords showed some evidence of recent trauma from her intubation. There was no obstruction or tracheal stenosis. There was no evidence of tracheal thrush. The bronchoscope was advanced through the trach into the lower tracheobronchial tree bilaterally. All areas were observed to at least the segmental level. Anatomy was normal bilaterally. The mucosa was somewhat edematous and erythematous. There were no endobronchial lesions. There were modest secretions, mostly lose, found bilaterally. These were removed with suction and lavage. A culture was sent. The patient tolerated the procedure well. There were no complications. Oxygen saturations on the Oxymizer mask and vital signs remained stable throughout the procedure. IMPRESSION: 1. 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 2. Moderate distal watery secretions were found. The patient appears to be unable to be able to cough these up or out secondary to obtundation and weakness. /[id number]/MODL MTDD
--- NOTE | 2017-07-28 13:39 | PCMIDPN ---
Assessment/Plan: Assessment/Plan: 1. MRSA bacteremia/pneumonia: -Currenlty on Vanco IV. - trough at 12.2. previous troughs were 10 and < 5. - she will likely accumulate thus will keep current dosing. care coordinated with pharmacy and RN - Mrsa--vanco FLEIPE = 1 in both sputum and blood - f/u blood cx ngtd from 07/25/17 - wbc has improved. creatinine stable at 0.4 - will need f/u trough on Meds vanco 750mg q12- Subjective: still with intermittent fevers. just had bronch. not a lot of secretions suctioned per RN. denies pain. sleepy since just post procedure. Objective: Vital Signs Temp Pulse Resp BP Pulse Ox 37.6 C 100 24 H 151/72 H 100 07/28/17 10:58 07/28/17 12:59 07/28/17 12:59 07/28/17 12:25 07/28/17 12:59 Laboratory Results 07/28/17 04:15 07/28/17 04:15 07/27/17 07/28/17 07/29/17 05:59 05:59 05:59 Intake Total 3390 2220 980 Output Total 1800 1525 Balance 1590 695 980 - Physical Exam General Appearance: other (arousable, answers some questions) Respiratory: coarse breath sounds Cardiac/Chest: tachycardia Extremities: No swelling Abdomen: normal bowel sounds, non-tender, soft, No distended Skin: No erythema ICD10 Worksheet Patient Problems: Problems Problem Status Onset Aspiration pneumonia Acute Fever Acute Generalized weakness Acute Hx: recurrent pneumonia Acute Hypoxia Acute Palliative care encounter Acute Periorbital hematoma Acute Pneumonia Acute Pneumonia Acute Posterior epistaxis Acute
--- NOTE | 2017-07-28 16:10 | ASMTCMCOM ---
CM Note CM Note Notes: Met with family: Gregoria Branch and Lucina; Dr. Hernández and Bulmaro for a Palliative meeting. Patient has been declining in health: Asp blood, on tube feeds, not communicating. She has been receiving ABX with no changes. Her children would like to give her a little more tx time to she if she might rally. If not, they will consider making her a DNR status. They appreciated time spent by Dr. Bianchi. Patient came from [facility] and if rehab is needed they would like her to return there. Her "Five Wishes" states that she would prefer to at home with family at bedside. Date Signed: 07/28/2017 04:09 PM Electronically Signed By:Swati Dozier LCSW
[2017-07-28] MEDS ORDERED: FUROSEMIDE 20 MG/2 ML VIAL IVP ONE (16:41)
--- NOTE | 2017-07-28 19:58 | CPEKG ---
Heart Rate: 151 RR Interval: 397 P-R Interval: 165 QRSD Interval: 70 QT Interval: 224 QTC Interval: 356 P Bude: 76 QRS Bude: -50 T Wave Bude: 181 EKG Severity - ABNORMAL ECG - EKG Impression: SUPRAVENTRICULAR TACHYCARDIA EKG Impression: MULTIFORM VENTRICULAR PREMATURE COMPLEXES EKG Impression: LAD, CONSIDER LEFT ANTERIOR FASCICULAR BLOCK EKG Impression: BORDERLINE R WAVE PROGRESSION, ANTERIOR LEADS EKG Impression: NONSPECIFIC T ABNORMALITIES, LATERAL LEADS Electronically Signed By: Manny Mcgill 29-Jul-2017 08:51:55
[2017-07-28] MEDS: HYDROCODONE/APAP 5/325 TAB TUBE SCH (20:07)
[2017-07-28] MEDS: INSULIN GLARGINE 100 UNITS/ML SYRINGE SC SCH (20:08)
[2017-07-28] MEDS: METOPROLOL TARTRATE 25 MG TAB TUBE SCH (20:25)
[2017-07-28] MEDS: FLUTICASONE HFA 44 MCG MDI IH SCH (21:41)
[2017-07-29] MEDS: INSULIN LISPRO 100 UNIT/ML SC SCH ×4 (00:51→16:47)
[2017-07-29] MEDS: guaiFENesin 200 MG/10 ML UDL TUBE SCH ×4 (00:52→16:47)
[2017-07-29] MEDS: ALBUTEROL 3 ML DEYVIAL IH PRN ×2 (06:02→10:50)
[2017-07-29] MEDS: ACETYLCYSTEINE 20% IH/PO 4 ML VIAL IH SCH ×4 (06:02→23:48)
[2017-07-29] MEDS: VANCOMYCIN 750 MG in NS 150 ML IV SCH ×2 (07:32→20:08)
[2017-07-29] MEDS: POTASSIUM Cl (KCl) 50 ML IV SCH ×3 (07:32→08:54)
[2017-07-29] MEDS: METOPROLOL TARTRATE 25 MG TAB TUBE SCH ×2 (07:37→20:25)
[2017-07-29] MEDS: FLUoxetine 20 MG CAP TUBE SCH (07:37)
[2017-07-29] MEDS: busPIRone 5 MG TAB TUBE SCH ×2 (07:37→20:25)
[2017-07-29] MEDS: FAMOTIDINE 20 MG TAB TUBE SCH ×2 (07:38→20:25)
[2017-07-29] MEDS: ENOXAPARIN 40 MG/0.4 ML SYR SC SCH (07:43)
[2017-07-29] MEDS: SODIUM CL NASAL 45 ML BTL EACHNARE SCH ×3 (07:46→20:48)
[2017-07-29] MEDS: POLYETHYLENE GLYCOL 3350 17 GM PKT TUBE SCH (08:59)
[2017-07-29] MEDS: NYSTATIN SUSP 500000 UNIT/5 ML UDCUP PO SCH ×2 (09:14→20:26)
[2017-07-29] MEDS ORDERED: FUROSEMIDE 20 MG/2 ML VIAL IVP ONE (10:50)
--- NOTE | 2017-07-29 10:50 | HOSPPROG ---
Hospitalist Progress Note Assessment/Plan: 87 yo F w sepsis, aspiration pneumonia. persistently febrile and tachycardic ?PE: neg PE study tachycardia: svt, sinus w pac's, possibly AF started on metoprolol, which she has tolerated change to xopenex from albuterol no anticoag lasix x 1 today fever: CT abd and pelvis neg for abscess. (images reviewed/interp by me) belly soft, lft's ok picc site (removed) ok repeat blood cx neg thus far AHRF: SUSPECT ASPIRATION possible bronch today sepsis: as evidenced by tachycardia, fever and elevated lactate lactate normalized volume resuscitation on vanc repeat lactate this AM pneumonia: suspected aspiration R lung base cleared from admit (interp by me) but L lung worse staph bacteremia: 03/31 on admit repeat pending sari picc placed 07/21, which may need to come out ID to see 07/25 blood cx neg plan of care: she is doing poorly, persistently febrile w minimal progress in setting of outpt functional decline she reamins full code per her wishes son acknowledges her decline and hopes for the best palliative care consult today diabetes: continue insulin hold metformin given critical illness proph: lmwh code: full 35 min crit care Subjective: cxr w slightly improved airspace disease (interp by me). tele: sinus tach, svt, pac's (interp). case d/w dr coleman Objective: Vital Signs Temp Pulse Resp BP Pulse Ox 36.8 C 95 31 H 163/66 H 93 07/29/17 07:30 07/29/17 09:00 07/29/17 07:30 07/29/17 09:00 07/29/17 07:30 Microbiology 07/28/17 12:30 - Final Sputum, Induced/Suctioned Laboratory Results 07/28/17 04:15 07/29/17 04:30 07/28/17 07/29/17 07/30/17 05:59 05:59 05:59 Intake Total 2220 2590 940 Output Total 1525 Balance 695 2590 940 PT 14.8 SEC (12.0-15.0) 07/21/17 14:41 INR 1.14 (0.83-1.16) 07/21/17 14:41 - Physical Exam Constitutional: no apparent distress, appears nourished Eyes: PERRL, anicteric sclera Ears, Nose, Mouth, Throat: moist mucous membranes, hearing normal Cardiovascular: no murmur, rub, or gallop, tachycardia Respiratory: no respiratory distress, other (poor inspiratory effort, no wheeze , diffuse crackles) Gastrointestinal: normoactive bowel sounds, soft, non-tender abdomen Genitourinary: no bladder fullness, wilburn in urethra Skin: warm, normal color Musculoskeletal: no muscle tenderness, No full muscle strength Neurologic: No AAOx3 ICD10 Worksheet Patient Problems: Problems Problem Status Onset Aspiration pneumonia Acute Fever Acute Generalized weakness Acute Hx: recurrent pneumonia Acute Hypoxia Acute Palliative care encounter Acute Periorbital hematoma Acute Pneumonia Acute Pneumonia Acute Posterior epistaxis Acute
--- NOTE | 2017-07-29 11:50 | PCMIDPN ---
Assessment/Plan: Assessment/Plan: * MRSA bacteremia/multifocal pneumonia: Repeat blood culture show clearing of bacteremia. No fever since midnight of 07/28/2017. Remains with high oxygen needs. Continue vancomycin at current dose as expect will accumulate over time. PICC line change on 07/27/2017 after bacteremia cleared. 07/29/17 11:47 07/29/17 11:49 Subjective: Patient with persistent high FiO2 needs. Follows commands. Objective: Vital Signs Temp Pulse Resp BP Pulse Ox 36.8 C 84 27 H 163/66 H 97 07/29/17 07:30 07/29/17 10:54 07/29/17 10:54 07/29/17 09:00 07/29/17 10:54 Microbiology 07/28/17 12:30 - Final Sputum, Induced/Suctioned Laboratory Results 07/28/17 04:15 07/29/17 04:30 07/28/17 07/29/17 07/30/17 05:59 05:59 05:59 Intake Total 2220 2590 940 Output Total 1525 Balance 695 2590 940 Vancomycin # 6 Blood cultures 07/25/2017 no growth Chest x-ray with stable bibasilar infiltrates - Physical Exam General Appearance: alert, no apparent distress, non-toxic EENT: No scleral icterus, No thrush Respiratory: respiratory distress (Increased respiratory effort present), coarse breath sounds Cardiac/Chest: regular rate, rhythm Abdomen: non-tender, No distended - Line/s RUE PICC Lines: No drainage, No erythema ICD10 Worksheet Patient Problems: Problems Problem Status Onset Aspiration pneumonia Acute Fever Acute Generalized weakness Acute Hx: recurrent pneumonia Acute Hypoxia Acute Palliative care encounter Acute Periorbital hematoma Acute Pneumonia Acute Pneumonia Acute Posterior epistaxis Acute
[2017-07-29] MEDS: LEVALBUTEROL 0.31 MG/3 ML DEYVIAL IH PRN ×2 (15:43→23:48)
[2017-07-29] MEDS: ACETAMINOPHEN 650 MG/20.3 ML UDCUP TUBE PRN (16:47)
--- NOTE | 2017-07-29 16:51 | PDINTPN ---
[employer] Business [employer] Consultant Progress Note Assessment/Plan: Assessment: Aspiration Pneumonia: MRSA in blood and sputum. Intubated 07/22, extubated. On Vapotherm. Secretions and laryngeal stridor persist. Zosyn stopped by Infectious Disease several days ago, on bronchodilators, mucolytics. Sputum culture yesterday growing only a small amount of mixed oral charmaine. Vocal cord paresis or paralysis bilaterally. This appears to be the cause of much of her upper airway stridor. Vocal cords moved very poorly, if at all, on bronchoscopy yesterday. Abnormal mental status, obtundation. Multifactorial. MRSA bacteremia, with the same in sputum. On vancomycin. Diabetes: BSs high. On SSI Hypernatremia: Resolved Tachycardia/AFib: Blood pressure is tolerating this. On metoprolol Prophylaxis: On famotidine for GI. SCDs and Lovenox for DVT. FTT: She's been progressively getting weaker at home, rarely does more that walk room to room, needs 2 people to get into a car. She has continued to deteriorate in here, very weak, unable to cough or clear secretions, obtunded now. Prognosis would appear to be quite poor. The patient's son and proxy has decided for a no cor status. I support this decision. Plan: Continue supportive care in the intensive care unit for now. Continue Vanco per Infectious Disease. Continue Free H2O Follow BSs - cover by sliding scale. Continue TFs per PEG tube Continue Mucinex, mucomyst to help with secretions. Personally I think that these are end of life issues regarding this hospitalization. I do not believe the patient has the strength to recover from her pneumonia and multiple medical problems. Going towards more comfort care and/or hospice/in-patient hospice may be indicated. However, the family may not be ready yet to make these decisions. 35 min of critical care time spent directly with the patient, not including bronchoscopy - discussed with the patient's son and 1 daughter, RT, nursing and hospitalist Subjective: Looks to voice, nonverbal. Not responding to questions or commands. Less stridor on Vapotherm Objective: Vital Signs Temp Pulse Resp BP Pulse Ox 37.7 C 102 H 30 H 153/94 H 96 07/29/17 16:00 07/29/17 16:00 07/29/17 16:00 07/29/17 16:07/29/17 16:00 Microbiology 07/28/17 12:30 - Final Sputum, Induced/Suctioned Laboratory Results 07/28/17 04:15 07/29/17 11:55 07/28/17 07/29/17 07/30/17 05:59 05:59 05:59 Intake Total 2220 2590 940 Output Total 1525 Balance 695 2590 940 PT 14.8 SEC (12.0-15.0) 07/21/17 14:41 INR 1.14 (0.83-1.16) 07/21/17 14:41 CXR: Improved basilar infiltrates Physical Exam - Physical Exam General Appearance: obtunded, other (In bed), No alert, No no apparent distress EENT: PERRL/EOMI, other (Vapotherm in place) Neck: normal inspection (No obvious JVD) Respiratory: decreased breath sounds (Bilaterally. Shallow respiratory efforts. ), rales (Few scattered rales at bases), rhonchi (Decrease), stridor ( Significantly less stridor with Vapotherm but some still persists), wheezing ( Decreased) Cardiac/Chest: irregularly irregular Abdomen: non-tender, soft, No normal bowel sounds (Decreased, present) Skin: warm/dry, pallor Extremities: pedal edema (Trace) Neuro/Psych: no motor/sensory deficits (Moves extremities weakly, difficult to assess), cognition abnormalities (Obtunded) ICD10 Worksheet Patient Problems: Problems Problem Status Onset Aspiration pneumonia Acute Pneumonia Acute Periorbital hematoma Acute Fever Acute Hypoxia Acute Generalized weakness Acute Hx: recurrent pneumonia Acute Palliative care encounter Acute Pneumonia Acute Posterior epistaxis Acute
--- NOTE | 2017-07-29 17:36 | WOCRNPDOC ---
WOCROnur Advanced Assessment Note - Skin Integrity Problem, Advanced Assess Right Cheek Pressure Injury Dressing Type: Gauze Integumentary Issue Intervention: Dressing Changed Carolyn Wound Tissue: Erythema Site Measurement - Head-to-Toe Length X Width X Depth (cm): 1x1x0 (lateral), 1.5x2x0 Pressure Injury Stage: Stage 1, Early Childhood Worker Related Pressure Injury ( vapotherm) Pressure Injury Present on Admit: No Skin Integrity Problem Comment: Small non blanching area on lateral right cheek and a second more diffuse area around apex of zygomatic bone. Offloaded skin with mepilex transfer, double layered across entire cheek. RN's Miguel in room for care. Left Cheek Pressure Injury Dressing Type: Gauze Site Measurement - Head-to-Toe Length X Width X Depth (cm): 3x1x0 Pressure Injury Stage: Stage 1, Early Childhood Worker Related Pressure Injury ( vapotherm) Skin Integrity Problem Comment: Diffuse area of non blanching on apex of zygomatic bone. Offloaded skin with mepilex transfer, double layered across entire cheek. RN's Miguel in room for care. Area will likely heal quickly as it is offloaded. Wound care will sign off.
[2017-07-29] MEDS: HYDROCODONE/APAP 5/325 TAB TUBE SCH (20:25)
[2017-07-29] MEDS: INSULIN GLARGINE 100 UNITS/ML SYRINGE SC SCH (20:26)
[2017-07-29] MEDS: FLUTICASONE HFA 44 MCG MDI IH SCH (22:31)
[2017-07-30] MEDS: guaiFENesin 200 MG/10 ML UDL TUBE SCH ×4 (00:23→17:43)
[2017-07-30] MEDS: INSULIN LISPRO 100 UNIT/ML SC SCH ×4 (00:23→17:43)
[2017-07-30] MEDS: ACETYLCYSTEINE 20% IH/PO 4 ML VIAL IH SCH ×4 (06:48→21:00)
[2017-07-30] MEDS: FLUoxetine 20 MG CAP TUBE SCH (08:13)
[2017-07-30] MEDS: FAMOTIDINE 20 MG TAB TUBE SCH ×2 (08:13→21:09)
[2017-07-30] MEDS: VANCOMYCIN 750 MG in NS 150 ML IV SCH ×2 (08:13→21:08)
[2017-07-30] MEDS: NYSTATIN SUSP 500000 UNIT/5 ML UDCUP PO SCH ×2 (08:13→21:40)
[2017-07-30] MEDS: METOPROLOL TARTRATE 25 MG TAB TUBE SCH ×2 (08:13→21:09)
[2017-07-30] MEDS: ENOXAPARIN 40 MG/0.4 ML SYR SC SCH (08:13)
[2017-07-30] MEDS: busPIRone 5 MG TAB TUBE SCH ×2 (08:13→21:09)
[2017-07-30] MEDS: SODIUM CL NASAL 45 ML BTL EACHNARE SCH ×3 (08:30→21:40)
[2017-07-30] MEDS: POLYETHYLENE GLYCOL 3350 17 GM PKT TUBE SCH (08:30)
[2017-07-30] MEDS ORDERED: METOPROLOL TARTRATE 25 MG TAB TUBE SCH (09:47)
--- NOTE | 2017-07-30 09:53 | HOSPPROG ---
Hospitalist Progress Note Assessment/Plan: 87 yo F w sepsis, aspiration pneumonia. persistently febrile and tachycardic ?PE: neg PE study tachycardia: svt, sinus w pac's, possibly AF decrease metoprolol to 12.5 bid given bradycardia its nt clear that this is AF in any event, given her debility, she is a poor candidate for AC fever: CT abd and pelvis neg for abscess. (images reviewed/interp by me) belly soft, lft's ok picc site (removed) ok repeat blood cx neg thus far 07/30: afebrile X 60 hours AHRF: SUSPECT ASPIRATION bronch 07/28 w thin secretions sepsis: as evidenced by tachycardia, fever and elevated lactate lactate normalized volume resuscitation on vanc repeat lactate this AM 07/30 septic physiology resolved pneumonia: suspected aspiration R lung base cleared from admit (interp by me) but L lung worse staph bacteremia: 03/31 on admit repeat pending sari picc placed 07/21, which may need to come out ID to see 07/25 blood cx neg plan of care: she is doing poorly, persistently febrile w minimal progress in setting of outpt functional decline she reamins full code per her wishes son acknowledges her decline and hopes for the best now DNR 07/30- she continues to languish in ICU w minimal/no progress in 10 days of hospitalization very poor prognosis will d/w family diabetes: continue insulin hold metformin given critical illness proph: lmwh code: full Subjective: case d/w dr coleman. tele: some bradycardia (interp by me) Objective: Vital Signs Temp Pulse Resp BP Pulse Ox 37.7 C 98 34 H 139/84 H 96 07/30/17 07:32 07/30/17 07:32 07/30/17 07:32 07/30/17 07:32 07/30/17 07:32 Microbiology 07/28/17 12:30 - Final Sputum, Induced/Suctioned Laboratory Results 07/30/17 04:30 07/30/17 04:30 07/29/17 07/30/17 07/31/17 05:59 05:59 05:59 Intake Total 2590 2330 Output Total 675 Balance 2590 1655 PT 14.8 SEC (12.0-15.0) 07/21/17 14:41 INR 1.14 (0.83-1.16) 07/21/17 14:41 - Physical Exam Constitutional: other (cachectic, tachypneic, opens eyes) Eyes: PERRL, anicteric sclera Ears, Nose, Mouth, Throat: moist mucous membranes, No hearing normal Cardiovascular: regular rate and rhythym, tachycardia Respiratory: other (tachypneic w wet cough, ok air movement) Gastrointestinal: soft, non-tender abdomen, No normoactive bowel sounds Genitourinary: no bladder fullness, wilburn in urethra Skin: warm, normal color Musculoskeletal: no muscle tenderness, No full muscle strength Neurologic: weakness, No AAOx3 ICD10 Worksheet Patient Problems: Problems Problem Status Onset Aspiration pneumonia Acute Fever Acute Generalized weakness Acute Hx: recurrent pneumonia Acute Hypoxia Acute Palliative care encounter Acute Periorbital hematoma Acute Pneumonia Acute Pneumonia Acute Posterior epistaxis Acute
[2017-07-30] MEDS ORDERED: FUROSEMIDE 20 MG/2 ML VIAL IVP ONE (09:56)
[2017-07-30] MEDS: LEVALBUTEROL 0.31 MG/3 ML DEYVIAL IH PRN (10:14)
[2017-07-30] MEDS ORDERED: LEVALBUTEROL 0.31 MG/3 ML DEYVIAL IH PRN (11:00)
--- NOTE | 2017-07-30 11:04 | PCMIDPN ---
Assessment/Plan: Assessment: MRSA pneumonia and bacteremia. Patient has significant underlying chronic illness. She does not appear to be improving significantly over the last few days. This is despite her clearing her bacteremia as of the last culture set. At this point we plan on continuing therapy with vancomycin. Plan: 1. Continue IV vancomycin. 2. Follow up with patient and family meeting later today. 07/30/17 14:07 07/30/17 14:13 Subjective: Patient remains not communicative. Per nursing and intensive care unit care, the patient is gradually getting worse despite therapy. Objective: Vancomycin # 7 Vital Signs Temp Pulse Resp BP Pulse Ox 37.7 C 73 31 H 139/84 H 97 07/30/17 07:32 07/30/17 10:25 07/30/17 10:25 07/30/17 07:32 07/30/17 10:25 Microbiology 07/28/17 12:30 - Final Sputum, Induced/Suctioned Sputum Culture - Final Laboratory Results 07/30/17 04:30 07/30/17 04:30 07/29/17 07/30/17 07/31/17 05:59 05:59 05:59 Intake Total 2590 2330 Output Total 675 Balance 2590 1655 - Physical Exam General Appearance: WD/WN, no apparent distress, toxic, No alert Respiratory: crackles, coarse breath sounds, No lungs clear, No normal breath sounds Cardiac/Chest: regular rate, rhythm, irregularly irregular Extremities: non-tender, normal inspection Skin: warm/dry, No rash Neuro/Psych: No alert, No normal mood/affect, No oriented x 3 ICD10 Worksheet Patient Problems: Problems Problem Status Onset Aspiration pneumonia Acute Fever Acute Generalized weakness Acute Hx: recurrent pneumonia Acute Hypoxia Acute Palliative care encounter Acute Periorbital hematoma Acute Pneumonia Acute Pneumonia Acute Posterior epistaxis Acute
--- NOTE | 2017-07-30 11:49 | PDINTPN ---
Well Drill Operator Progress Note Assessment/Plan: Assessment: Aspiration Pneumonia: MRSA in blood and sputum. Intubated 07/22, extubated. On Vapotherm. Secretions and laryngeal stridor persist. Zosyn stopped by Infectious Disease several days ago, on bronchodilators, mucolytics. Sputum culture from bronchoscopy on 07/28 growing only a small amount of mixed oral charmaine. Vocal cord paresis or paralysis bilaterally. This appears to be the cause of much of her upper airway stridor. Vocal cords moved very poorly, if at all, on bronchoscopy. Etiology is not clear to me.. Abnormal mental status, obtundation. Multifactorial, but may in large part be secondary to severity of illness in end of life issues. MRSA bacteremia, with the same in sputum. On vancomycin. Diabetes: BSs high. On SSI Hypernatremia: Resolved Tachycardia/AFib: Resolved, heart rates now lower. On metoprolol Prophylaxis: On famotidine for GI. SCDs and Lovenox for DVT. FTT: She's been progressively getting weaker at home, rarely does more that walk room to room, needs 2 people to get into a car. She has continued to deteriorate during this hospitalization. She is very weak, unable to cough or clear secretions, and remains obtunded/unresponsive. Prognosis would appear to be quite poor. The patient's son and proxy has decided for a no cor status. I support this decision. It may be appropriate at this point in time to move more toward comfort care and to consider inpatient hospice. Personally I think that these are end of life issues regarding this hospitalization. I do not believe the patient has the strength to recover from her pneumonia and multiple medical problems. However, the family may not be ready yet to make these decisions. Plan: Continue supportive care in the intensive care unit for now. Continue Vanco per Infectious Disease. Continue Vapotherm and bronchopulmonary therapies. No cor. Follow BSs - cover by sliding scale. Continue TFs per PEG tube Discuss end of life issues as outlined above with the patient's son and daughter when they are available today. 30 min of critical care time spent directly with the patient, not including bronchoscopy - discussed with the patient's son, RT, nursing and hospitalist And ICU multi disciplinary team 07/30/17 11:51 Subjective: Obtunded, will open eyes and look to voice. Nonverbal. Objective: Vital Signs Temp Pulse Resp BP Pulse Ox 37.7 C 73 31 H 139/84 H 97 07/30/17 07:32 07/30/17 10:25 07/30/17 10:25 07/30/17 07:32 07/30/17 10:25 Microbiology 07/28/17 12:30 - Final Sputum, Induced/Suctioned Sputum Culture - Final Laboratory Results 07/30/17 04:30 07/30/17 04:30 07/29/17 07/30/17 07/31/17 05:59 05:59 05:59 Intake Total 2590 2330 Output Total 675 Balance 2590 1655 PT 14.8 SEC (12.0-15.0) 07/21/17 14:41 INR 1.14 (0.83-1.16) 07/21/17 14:41 Laboratory Tests 07/30/17 07/30/17 04:30 04:30 Calcium 8.4 L Magnesium 2.2 Physical Exam - Physical Exam General Appearance: mild distress, obtunded, unresponsive EENT: PERRL/EOMI, other (Vapotherm in place at high flow, saturation 96%), No scleral icterus (R), No scleral icterus (L) Neck: normal inspection (No obvious jugular venous distension) Respiratory: decreased breath sounds (Bilaterally), rales (At bases), rhonchi ( At bases), stridor (Over larynx, not marked. Present in inspiration and expiration, little change from yesterday and better with Vapotherm.) Cardiac/Chest: systolic murmur, irregularly irregular Abdomen: non-tender, soft, No normal bowel sounds (Decreased, present) Pelvic Exam: other (Garcia catheter in place, decreased urine output last 24 hr) Skin: normal color, warm/dry Extremities: pedal edema (Trace) Neuro/Psych: no motor/sensory deficits (Will move all extremities weakly), cognition abnormalities (Obtunded, weekly arousable but unresponsive) ICD10 Worksheet Patient Problems: Problems Problem Status Onset Aspiration pneumonia Acute Pneumonia Acute Periorbital hematoma Acute Fever Acute Hypoxia Acute Generalized weakness Acute Hx: recurrent pneumonia Acute Palliative care encounter Acute Pneumonia Acute Posterior epistaxis Acute
--- NOTE | 2017-07-30 15:56 | ASMTCMCOM ---
CM Note CM Note Notes: Met with Gregoria Branch, and Bulmaro Verdugo and Dr. Hernández to discuss the patient's current medical state and options for care. Hospice was discussed and the family chose to have an informational session. Contacted [facility] and Sonia arrived at 2:30 to meet with the family for an informational session. The family requested I participate in the session as Bulmaro was scheduled for another consult. The family decided they would like to go with [facility] , specifically the inpatient hospice program. They will go for a tour this afternoon. Dr. Bernard to place the Hospice eval order for patient. [facility] will send an admissions nurse tomorrow at 9:00 AM and arrangements will be finalized at that time. CM will follow. Date Signed: 07/30/2017 03:55 PM Electronically Signed By:Cathy Miranda LCSW
[2017-07-30] MEDS: FLUTICASONE HFA 44 MCG MDI IH SCH ×2 (21:00→21:01)
[2017-07-30] MEDS ORDERED: HYDROCODONE/APAP 5/325 TAB TUBE SCH (21:00)
[2017-07-30] MEDS: INSULIN GLARGINE 100 UNITS/ML SYRINGE SC SCH (21:37)
[2017-07-31] MEDS: INSULIN LISPRO 100 UNIT/ML SC SCH ×2 (00:26→06:20)
[2017-07-31] MEDS: guaiFENesin 200 MG/10 ML UDL TUBE SCH ×2 (00:26→06:19)
[2017-07-31] MEDS: ACETYLCYSTEINE 20% IH/PO 4 ML VIAL IH SCH (05:31)
[2017-07-31] MEDS: ACETAMINOPHEN 650 MG/20.3 ML UDCUP TUBE PRN (06:19)
[2017-07-31 08:07] VITALS: BP 129/69
[2017-07-31] MEDS: VANCOMYCIN 750 MG in NS 150 ML IV SCH (09:08)
[2017-07-31] MEDS: SODIUM CL NASAL 45 ML BTL EACHNARE SCH (09:27)
[2017-07-31] MEDS: NYSTATIN SUSP 500000 UNIT/5 ML UDCUP PO SCH (09:27)
[2017-07-31] MEDS: POLYETHYLENE GLYCOL 3350 17 GM PKT TUBE SCH (09:27)
[2017-07-31] MEDS: busPIRone 5 MG TAB TUBE SCH (10:08)
[2017-07-31] MEDS: ENOXAPARIN 40 MG/0.4 ML SYR SC SCH (10:08)
[2017-07-31] MEDS: METOPROLOL TARTRATE 25 MG TAB TUBE SCH (10:09)
[2017-07-31] MEDS: FAMOTIDINE 20 MG TAB TUBE SCH (10:09)
[2017-07-31] MEDS: FLUoxetine 20 MG CAP TUBE SCH (10:09)
--- NOTE | 2017-07-31 10:18 | PDIAF ---
- Diagnosis Diagnosis: MRSA aspiration PNA, bacteremia, sepsis Code Status: Do Not Resuscitate - Medication Management Discharge Medications: Medications to Continue on Transfer Insulin Glargine,Hum.rec.anlog [Lantus] 10 unit SQ [id number]@[id number]/30/11 [Last Taken 07/20/17] Albuterol Sulfate [Albuterol Inhaler Hfa] 1 - 2 puffs IH Q4H PRN 04/27/14 [Last Taken 05/25/16] Fluticasone Hfa 44 Mcg [Flovent 44 MCG Hfa MDI (*)] 2 puffs IH HS 04/27/14 [ Last Taken 07/20/17] Hydrocodone/Acetaminophen [[place] 5/325 (*)] 0.5 each TUBE HS 09/29/15 [Last Taken 07/20/17] Metoclopramide [Reglan 5 mg (*)] 5 mg TUBE DAILY PRN 12/27/15 [Last Taken ] Nystatin [Mycostatin Oral Liquid (*)] 5 ml PO BID 12/27/15 [Last Taken 07/21/17] guaiFENesin/DEXTROMETHORPHAN [Robitussin Dm Oral Liquid (*)] 10 ml PO Q4HRS PRN #0 ml 12/31/15 [Last Taken 01/07/16 11:00] Acetaminophen [Tylenol 650/20.3ML Oral Liq (*)] 650 mg TUBE Q4HRS PRN udcup 07/15 [Last Taken Unknown] morphINE [morphINE 4 mg/ml inj (*)] 1 - 2 mg IVP Q1HR PRN inj 07/31/17 [Last Taken Unknown] Door Closer Antibiotics: NA Discharge Medications: Refer to the Discharge Home Medication list for PRN reason. PICC Care - Routine: N/A - Orders Services needed: Registered Nurse, Certified Punch Box Tender Isolation Type: Contact Isolation Oxygen: 4 Diet Recommendation: no restrictions on diet Garcia: Not applicable - Follow Up Care Current Providers and Referrals: Patient,NotPresent [Unknown] - As per Instructions
--- NOTE | 2017-07-31 11:31 | ASMTLACE ---
LACE Length of stay for Answers: 7-13 days current admission Acuity / Level of Answers: Yes Care: Did the patient have an inpatient admission? Comorbidities - select Answers: Diabetes (uncontrolled or all that apply controlled) Other Notes: HTN # of Emergency department Answers: 1-2 visits in the last 6 months Score: 11 Date Signed: 07/31/2017 11:30 AM Electronically Signed By:Cathy Miranda LCSW
--- NOTE | 2017-07-31 17:28 | PDDCSUM ---
Discharge Summary Discharge Summary: DISCHARGE SUMMARY FOLLOW-UP ITEMS: Hospice care DATE OF ADMISSION: 07/21/2017 DATE OF DISCHARGE: 07/31/2017 DISCHARGE DIAGNOSES: 1. Sepsis present on admission 2. MRSA aspiration pneumonia present on admission 3. MRSA bacteremia present on admission 4. Acute on chronic hypoxic respiratory failure 5. Acute toxic encephalopathy 6. Vocal cord paresis and paralysis bilaterally 7. Acute hypernatremia 8. Paroxysmal atrial fibrillation 9. Acute metabolic acidosis CONSULTATIONS: Pulmonary Critical Care, Infectious Disease, hospice, ear nose and throat PROCEDURES / IMAGING: Chest x-ray demonstrating ongoing airspace disease CHIEF COMPLAINT: Acute respiratory distress SUBJECTIVE: Patient was discharged comfortably, obtunded, on hospice PHYSICAL EXAM ON DISCHARGE: Systolic blood pressure 130-160, heart rate 70-100, temperature 39.3 degrees, requiring 15 liter/minute non-rebreather face mask LABS ON DISCHARGE: Serum sodium 148, creatinine 0.6, white blood cell count 13,700 HOSPITAL COURSE BY PROBLEM: The patient presented with acute respiratory distress requiring up titration of supplemental oxygen from her home baseline. Respiratory distress worsened over the 1st 24 hr as she became septic and she was intubated on 07/22/2017. She was noted to have acute metabolic acidosis secondary to lactic acid secondary to sepsis, and she received empiric IV fluids. Respiratory failure was secondary to MRSA aspiration pneumonia with resultant MRSA bacteremia. She was aspirating because of vocal cord paresis in paralysis, for which she was being seen in the Ear Nose and Throat office prior to arrival. Patient received empiric IV antibiotics and was eventually extubated and maintained on Vapotherm , but her mental status remained very poor, acutely obtunded and acutely toxically encephalopathic secondary to infection, which was a substantial change from her baseline mental status. She also experienced acute hypernatremia and was treated free water, given her poor oral intake. Her mental status remained substantially below her baseline, goals of care conversations list that the patient wanted to be do not resuscitate, and her family transition her to hospice on 07/31. DISCHARGE MEDICATIONS: Please see official discharge medication reconciliation sheet in chart , comfort medications only.
== END 2017-07-31 10:45 | disposition hospice, home (50) | DRG 871 ==
LOC: EDUNIT# → F2N 16:08
PROVIDERS: ADMIT Internal Medicine; ATTEND Internal Medicine
PROC: 02HV33Z Insertion of Infusion Device into Superior Vena Cava, Percutaneous Approach (ICD-10-PCS; 2017-07-21)
PROC: 0BH18EZ Insertion of Endotracheal Airway into Trachea, Via Natural or Artificial Opening Endoscopic (ICD-10-PCS; 2017-07-22)
PROC: 5A1945Z Respiratory Ventilation, 24-96 Consecutive Hours (ICD-10-PCS; 2017-07-22)
PROC: 02HV33Z Insertion of Infusion Device into Superior Vena Cava, Percutaneous Approach (ICD-10-PCS; principal; 2017-07-27)
PROC: 0B968ZZ Drainage of Right Lower Lobe Bronchus, Via Natural or Artificial Opening Endoscopic (ICD-10-PCS; 2017-07-28)
PROC: 0B9B8ZZ Drainage of Left Lower Lobe Bronchus, Via Natural or Artificial Opening Endoscopic (ICD-10-PCS; 2017-07-28)
DX: A41.02 Sepsis due to Methicillin resistant Staphylococcus aureus (principal); R65.21 Severe sepsis with septic shock; J69.0 Pneumonitis due to inhalation of food and vomit; B95.62 Methicillin resistant Staphylococcus aureus infection as the cause of diseases classified elsewhere; J96.21 Acute and chronic respiratory failure with hypoxia; D62 Acute posthemorrhagic anemia; E87.0 Hyperosmolality and hypernatremia; L89.811 Pressure ulcer of head, stage 1; J38.02 Paralysis of vocal cords and larynx, bilateral; E11.9 Type 2 diabetes mellitus without complications; K21.9 Gastro-esophageal reflux disease without esophagitis; I10 Essential (primary) hypertension; L89.151 Pressure ulcer of sacral region, stage 1; K59.00 Constipation, unspecified; Z93.1 Gastrostomy status; Z88.0 Allergy status to penicillin; Z79.84 Long term (current) use of oral hypoglycemic drugs; Z66 Do not resuscitate
CPT/HCPCS: 96365; 97162-GP; 97166-GO; 97530-GO; 97530-GP; 97535-GO; C1751; G8978-GP-CL; G8979-GP-CK; G8987-GO-CM; G8988-GO-CL; J1650; J1815; J1940; J1956; J2060; J2250; J2270; J2543; J2704; J3010; J3370; J3480; J7608; J7613; P9047; Q9967